=== PATIENT | male | born 1935 | race Caucasian/White ===

== ENCOUNTER 2016-11-10 10:58 | Inpatient (IN) | payer MEDICARE ==
[~2016-11-10] VITALS: Ht 188 cm; Wt 92.0 kg
[2016-11-10] MEDS ORDERED: ACETAMINOPH W/CODEINE #3 TAB UD PO ONE (11:30)
[2016-11-10] MEDS ORDERED: ASPI81CH PO (11:35)
[2016-11-10] MEDS ORDERED: PENT500C PO (11:35)
[2016-11-10] MEDS ORDERED: ATEN50TA2 PO (11:35)
--- NOTE | 2016-11-10 12:44 | REP ---
PELVIS AND RIGHT HIP: AP view of the pelvis and two views of the right hip are performed. There is a fracture of the right femoral neck. No other acute fracture or dislocation is seen. There are mild degenerative changes at both hip joints. There are degenerative changes of the visualized lower lumbar spine. IMPRESSION: Right femoral neck fracture. Signed by Rock Diez MD 11/10/2016 03:30 P
[2016-11-10] MEDS ORDERED: NITR3TA SL (13:07)
[2016-11-10] MEDS ORDERED: PRAV1TAB39 PO (13:07)
[2016-11-10] MEDS ORDERED: ASPI81TA7 PO (13:07)
--- NOTE | 2016-11-10 13:46 | REP ---
CT RIGHT HIP: CT right hip performed in the axial plane with sagittal and coronal reconstruction images. There is a mildly displaced fracture of the right femoral neck. There is posterior displacement at the fracture site. At the margins of the fracture, there is somewhat irregular lucency suggesting a possible underlying bone lesion and pathologic fracture. The fracture is somewhat comminuted with multiple small fragments at the fracture site. There is no dislocation. No other fracture is seen of the visualized osseous structures. There is a moderate amount of joint fluid present at the hip. IMPRESSION: Mildly displaced comminuted fracture of the right femoral neck. There is a possible underlying bone lesion at the fracture site and this may represent a pathologic fracture. Signed by Rock Diez MD 11/10/2016 03:31 P
[2016-11-10] MEDS ORDERED: MORPHINE 2 MG/ML 1ML SYRINGE IV ONE (14:15)
[2016-11-10] MEDS: NS 1,000 ML IV SCH ×3 (14:15→21:00)
[2016-11-10] MEDS ORDERED: ceFAZolin SOD 1 GM in D5W MINI-BAG PLUS 50 ML IV ONE (14:45)
--- NOTE | 2016-11-10 15:14 | REP ---
Clinical: Rule out metastatic disease. Technique: AP and cross-table lateral views the right femur. Findings: An acute femoral neck fracture is identified. Osteopenia and arthritic degenerative changes are noted involving the hip and ankle joints. No obvious neoplastic or pathologic metastatic lesion is identified. Impression: Acute femoral neck fracture. Osteopenia and arthritic degenerative changes. No obvious metastatic or neoplastic lesion identified. Signed by Harjinder Caruso MD 11/10/2016 03:06 P
--- NOTE | 2016-11-10 15:58 | CR ---
DATE OF CONSULTATION: 11/10/2016 CHIEF COMPLAINT: Right hip fracture. HISTORY: This is an 81-year-old gentleman who ambulates with a cane. Lives with his , accompanied by two daughters, who fell today [place] the post office, injuring his right hip. He said he has had some issues with that hip in the past with some trochanteric bursitis and I believe a couple years ago went through some physical therapy, and that really seemed to help a great deal. Really no recent troubles with hip pain or groin pain. He believes that the impact is what caused this hip fracture. I was asked to evaluate him for this femoral neck fracture. It is more of a basilar neck fracture. CT scan was obtained to better define the anatomy of the fracture and actually shows some possible cystic change in the femoral neck, possibly indicating a pathologic fracture. PAST MEDICAL HISTORY: Notable for: 1. Cardiac disease. 2. History of heart attack. 3. History of appendicitis and cholecystitis. PAST SURGICAL HISTORY: Includes: 1. Cardiac stents. 2. Appendectomy. 3. Cholecystectomy. 4. Cardiac stents. 5. Vasectomy. MEDICATIONS: Include Pentasa, atenolol, aspirin pravastatin, nitroglycerin, which he apparently does not use very frequently, if at all. REVIEW OF SYSTEMS: Denies any respiratory or gastrointestinal (GI) disorders, although possible history of colitis, which is unclear. Denies urinary disorders. HEENT: Denies endocrine disorders. Musculoskeletal: As noted above. Denies psychiatric issues. Denies any current chest pain or shortness of breath. ALLERGIES: No known drug allergies. PHYSICAL EXAMINATION: He is alert and oriented. No acute distress. HEENT: Extraocular muscles intact. Pharynx benign. He has a regular rate and rhythm to his pulse. Nonlabored breathing. He has a benign abdomen: Soft, nontender, nondistended. He has no irritability or tenderness about the upper extremities. His left lower extremity is non-irritable to range of motion. The right hip he keeps flexed and externally rotated to some degree, but he can move his toes well. He reports intact sensation distally. Pulses were difficult to palpate, but he has obvious good perfusion of the foot. Any subtle range of motion of his right hip is quite uncomfortable for him. He does not seem to be tender around his pelvis. RADIOGRAPHS REVIEWED: They demonstrate what appears to be a basilar neck fracture on the right hip. I do not see any clear evidence of pathologic lesion. He does have some degenerative disk disease. There appears to be some mild displacement of his right femoral neck. Otherwise, his pelvis shows no clear evidence of fracture. CT scan was reviewed of his right hip, and this shows evidence of a mildly displaced femoral neck fracture at the base of the neck that shows some evidence of a lytic lesion in the femoral neck area. This could represent a pathologic-type fracture. Also did full femur x-rays to look for any other pathologic lesions or fractures, and these do not show any clear evidence of metastatic or lytic lesions. IMPRESSION: This is an 81-year-old gentleman with some medical issues, not currently on any blood thinners other than aspirin, who had a mechanical fall, injuring his right hip. He was not having immediate problems with his hip prior to this fall. Denies any history of cancers. I think we need to rule out to any sort of metastatic process that could involve his right hip and certainly would recommend sending the bone for pathologic analysis. RECOMMENDATIONS: 1. Bedrest. 2. Labs were ordered. 3. Would recommend nothing by mouth past midnight, which I have ordered. 4. Would suggest a whole-body bone scan to look for any lytic or destructive lesions that could be elsewhere, which possibly would impact our treatment. 5. Will need to send bone off to pathology for analysis. 6. Would recommend hemiarthroplasty. I think this would be the most appropriate treatment for this, given that there may be some bone loss in the femoral neck due to a lytic process. It does not really appear to be an aggressive lesion; however, a metastatic process would be fairly high on the list. I feel the likelihood of this being a primary bone tumor is very low. 7. Would plan on proceeding with a right hip hemiarthroplasty when he is medically optimized and once we have further workup done, including the bone scan and the necessary workup per medical service. The patient and family understand the nature of procedure, the risks of bleeding, infection, damage to nerves, vessels, persistent pain, wear, loosening, dislocation, blood clots, leg length inequality, medical problems, , among others. They understand this is a significant injury for somebody of this age and can be often quite difficult to recover from. I would anticipate putting him on the schedule for tomorrow, assuming we have all of the workup and medical clearance done by then but will certainly appreciate any further input from the hospitalist service.
[2016-11-10 16:15] VITALS: BP 188/82
[2016-11-10] MEDS ORDERED: MORPHINE 2 MG/ML 1ML SYRINGE IV PRN ×2 (16:15→16:30)
[2016-11-10] MEDS ORDERED: PERCOCET 5MG/325MG TAB PO PRN ×2 (16:15→16:30)
[2016-11-10] MEDS ORDERED: ONDANSETRON 4MG/2ML VIAL (J2405) IV PRN ×2 (16:15→16:30)
[2016-11-10] MEDS ORDERED: ACETAMINOPHEN TAB 650MG DOSE (2X325MG) PO PRN ×2 (16:15→16:30)
[2016-11-10] MEDS ORDERED: HEPARIN SOD (PORCINE) 5000 UNITS/ML VIAL SC SCH ×2 (16:15→22:00)
--- NOTE | 2016-11-10 16:29 | REP ---
Clinical: Preoperative assessment. Findings: Tortuous thoracic aorta is suggested. Cardiac silhouette is upper limits of normal. Lung case demonstrate chronic interstitial changes without focal consolidation, effusion, or pneumothorax. Skeletal structures demonstrate osteopenia and degenerative changes. Impression: Chronic-appearing changes. No acute cardiopulmonary process. Signed by Harjinder Caruso MD 11/10/2016 04:20 P
[2016-11-10 17:02] LABS: BASO % 0.1 % (0.0-1.0); EOS % 0.1 % (0.0-3.0); LARGE UNSTAINED CELL # 0.1 K/mm3 (0.0-0.4); LARGE UNSTAINED CELL % 0.6 % (0.0-4.0); LYMPH # 0.8 K/mm3 (1.5-4.5); LYMPH % 6.6 % (24.0-44.0); MEAN CORPUSCULAR HEMOGLOBIN 29.8 pg (27.0-33.0); MEAN CORPUSCULAR HGB CONC 33.8 g/dl (32.0-36.5); MEAN CORPUSCULAR VOLUME 88.3 fl (80.0-96.0); MONO # 0.5 K/mm3 (0.0-0.8); MONO % 4.3 % (0.0-5.0); NEUTROPHILS # 10.6 K/mm3 (1.8-7.7); NEUTROPHILS % 88.3 % (36.0-66.0); PLATELET COUNT, AUTOMATED 201 k/mm3 (150-450); RED CELL DISTRIBUTION WIDTH 13.1 % (11.5-14.5)
[2016-11-10 17:13] LABS: INR 1.07
[2016-11-10 17:20] LABS: ALBUMIN 3.2 GM/DL (3.2-5.2); ALBUMIN/GLOBULIN RATIO 0.84 (1.00-1.93); ALKALINE PHOSPHATASE 98 U/L (45-117); ALT/SGPT 14 U/L (12-78); ANION GAP 9 MEQ/L (8-16); AST/SGOT 16 U/L (15-37); BILIRUBIN,TOTAL 0.6 MG/DL (0.2-1.0); BLOOD UREA NITROGEN 16 MG/DL (7-18); CALCIUM LEVEL 8.6 MG/DL (8.8-10.2); CARBON DIOXIDE LEVEL 26 MEQ/L (21-32); CHLORIDE LEVEL 103 MEQ/L (98-107); CREATININE FOR GFR 0.87 MG/DL (0.70-1.30); GLOMERULAR FILTRATION RATE > 60.0 (>35); GLUCOSE, FASTING 134 MG/DL (83-110); MAGNESIUM LEVEL 1.7 MG/DL (1.8-2.4); POTASSIUM SERUM 4.4 MEQ/L (3.5-5.1); SODIUM LEVEL 138 MEQ/L (136-145); THYROXINE (T4) 11.5 UG/DL (4.5-12.0)
[2016-11-10 17:26] LABS: T UPTAKE 33 % (33-40)
[2016-11-10] MEDS: MESALAMINE 250 MG CR CAP PO SCH ×2 (18:20→20:58)
[2016-11-10] MEDS: PRAVASTATIN 20 MG TAB PO SCH (20:58)
[2016-11-10] MEDS: SENOKOT S TAB PO SCH (20:59)
--- NOTE | 2016-11-10 20:59 | HPE ---
DATE OF ADMISSION: 11/10/2016 LAND USE PLANNER: Dr. Calvin PRIMARY CARE PROVIDER: SELIN Nunez ORTHOPEDIC SURGEON: Dr. Mccormick CHIEF COMPLAINT: Fall with right femoral neck fracture. HISTORY OF PRESENT ILLNESS: This is an 81-year-old male with underlying medical history of coronary arterial disease with stents five years ago, hypertension, ulcerative colitis, following with Dr. Carrillo. As per patient, he was in his normal state of health today, going to the post office and carrying a big box down a sloping slope and subsequently reported his right hip giving out and fell, unable to get up, was brought to the hospital. Found to have a right femoral neck fracture. The patient denies any head trauma or any loss of consciousness. At baseline is in good health. Does followup with orthopedic surgeon with right hip bursitis. The patient denies any chest pain, pressure, discomfort. Denies any shortness of breath. Does not use oxygen at home. Denies history of sleep apnea. Able to walk half of a mile without any problems at baseline. ALLERGIES: No known drug allergies. PAST MEDICAL HISTORY: 1. Coronary arterial disease. 2. Hypertension. 3. Ulcerative colitis. PAST SURGICAL HISTORY: 1. Cardiac stents. 2. Appendectomy. 3. Cholecystectomy. FAMILY HISTORY: Noncontributory. SOCIAL HISTORY: Lives at home with his . Occasionally drinks alcoholic beverages. No smoking. No illicit drug use. REVIEW OF SYSTEMS: 11-point review of systems is negative except for those mentioned in history of present illness. HOME MEDICATIONS: - aspirin 81 mg by mouth daily - atenolol 50 mg by mouth daily - methylamine 1000 mg by mouth three times a day - nitroglycerin 0.3 mg sublingually as needed - pravastatin 20 mg by mouth daily VITAL SIGNS: Temperature 98.7, pulse 74, respirations 18, blood pressure 180/82, pulse oximetry 94% on room air. GENERAL: The patient is alert and oriented times three. No acute distress. HEENT: Normocephalic, atraumatic. PULMONARY: Bilaterally clear to auscultation. CARDIAC: Regular rate and rhythm. ABDOMEN: Soft, nontender, nondistended. EXTREMITIES: Right lower extremity externally rotated and shortened. No edema in bilateral lower extremities. LABORATORY DATA: EKG with sinus rhythm with no ST segment changes. WBC 12, hemoglobin and hematocrit 13.7/40.7, platelets 201. Chemistry: Sodium 138, potassium 4.4, chloride 103, bicarbonate 26, BUN 16, creatinine 0.87. Cardiac enzymes are negative times one. ASSESSMENT AND PLAN: This is an 81-year-old male patient with underlying medical history of coronary arterial disease, hypertension, ulcerative colitis, admitted with right femoral neck fracture, status post low impact fall. 1. Status post low impact fall with right femoral neck fracture. Orthopedics, Dr. Mccormick, has been consulted. CT scan and radiological image appreciated. We will get nuclear medicine bone scan to rule out lytic lesions and pathological fracture and followup PTH, calcium. Perioperative management as per orthopedics. 2. Deep vein thrombosis (DVT) prophylaxis. Heparin subcutaneous. Prior to procedure, hold heparin subcutaneous after midnight. Nothing by mouth after midnight for surgery. Patient baseline METs greater than 4. Currently optimized for surgery. Continue beta sumi. Dr. Calvin has been informed. The patient is at intermediate risk for intermediate risk procedure. 3. Coronary arterial disease. Holding aspirin given the patient just had a fall with right femoral neck fracture and likely will be placed on Coumadin for deep vein thrombosis (DVT) prophylaxis after surgery. Withholding aspirin for now. Continue beta blockers. Bowel regimen as prescribed. EKG is appreciated. Cardiac enzymes appreciated. 4. Leukocytosis. No known source of infection, likely reactive . Followup cultures. UA and urine cultures. 5. Hypertension. Continue blood pressure medications. The patient's elevated blood pressure is likely secondary to pain. We will adjust blood pressure medication as needed. 6. Dyslipidemia. Continue statin. 7. Ulcerative colitis. Continue home medications. 8. Deep vein thrombosis (DVT) prophylaxis. As per orthopedics. The patient currently on heparin subcutaneously. DISPOSITION: Pending nuclear medicine bone scan. Likely going to the operating room tomorrow.
[2016-11-10] MEDS ORDERED: SENOKOT S TAB PO SCH (21:00)
[2016-11-10] MEDS ORDERED: MESALAMINE 250 MG CR CAP PO SCH (21:00)
[2016-11-10 22:00] VITALS: BP 151/77
[2016-11-11] VITALS (8 sets, daily range): BP systolic 130–181; BP diastolic 62–86
[2016-11-11] MEDS: NS 1,000 ML IV SCH ×3 (04:25→16:55)
[2016-11-11] MEDS ORDERED: ceFAZolin SOD 1 GM in D5W MINI-BAG PLUS 50 ML IV ONE (06:00)
--- NOTE | 2016-11-11 07:19 | ECGEPIP ---
Stationary ECG Study [facility] - ED Test Date: 2016-11-10 Pat Name: GLORIA ZARAGOZA Department: Room: [place] [address] Gender: M Wares Sorter: luciana : 1935 Requested By: JULIA Johnston PA-C Order Number: [id number] Reading MD: Josette Vincent Measurements Intervals [place] Rate: 65 P: 21 NC: 171 QRS: 14 QRSD: 85 T: 50 QT: 429 QTc: 447 Interpretive Statements SINUS RHYTHM NO PRIOR FOR COMPARISON Electronically Signed On 11-11-2016 7:19:01 EDT by Josette Vincent
[2016-11-11 07:49] LABS: MEAN CORPUSCULAR HEMOGLOBIN 29.4 pg (27.0-33.0); MEAN CORPUSCULAR HGB CONC 33.7 g/dl (32.0-36.5); MEAN CORPUSCULAR VOLUME 87.4 fl (80.0-96.0); RED CELL DISTRIBUTION WIDTH 13.1 % (11.5-14.5); WHITE BLOOD COUNT 11.4 K/mm3 (4.0-10.0)
[2016-11-11 07:55] LABS: INR 1.14
[2016-11-11 08:12] LABS: ANION GAP 10 MEQ/L (8-16); BLOOD UREA NITROGEN 11 MG/DL (7-18); CALCIUM LEVEL 8.8 MG/DL (8.8-10.2); CARBON DIOXIDE LEVEL 25 MEQ/L (21-32); CHLORIDE LEVEL 102 MEQ/L (98-107); CREATININE FOR GFR 0.68 MG/DL (0.70-1.30); GLOMERULAR FILTRATION RATE > 60.0 (>35); GLUCOSE, FASTING 129 MG/DL (83-110); MAGNESIUM LEVEL 1.5 MG/DL (1.8-2.4); POTASSIUM SERUM 3.6 MEQ/L (3.5-5.1); SODIUM LEVEL 137 MEQ/L (136-145)
[2016-11-11] MEDS ORDERED: GASTROGRAFIN SOLUTION 30ML PO ONE (08:15)
[2016-11-11] MEDS: MESALAMINE 250 MG CR CAP PO SCH ×3 (08:36→21:15)
[2016-11-11] MEDS: SENOKOT S TAB PO SCH ×2 (08:36→21:14)
[2016-11-11] MEDS: ATENOLOL 50 MG TAB PO SCH (08:36)
[2016-11-11] MEDS ORDERED: GASTROGRAFIN SOLUTION 30ML (Q9963) PO ONE (08:45)
[2016-11-11] MEDS ORDERED: ATENOLOL 50 MG TAB PO SCH (09:00)
[2016-11-11] MEDS ORDERED: PRAVASTATIN 20 MG TAB PO SCH (09:00)
[2016-11-11] MEDS ORDERED: MAG SULF 1GM/100ML (MAG RUN) 1 GM in APPROPRIATE DILUENT 1 EA IV ONE (09:00)
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
--- NOTE | 2016-11-11 12:26 | REP ---
WHOLE BODY BONE SCAN: Following the intravenous administration of 22 mCi of technetium-99m MDP, patient's whole body is imaged in the anterior and posterior projections with additional oblique images of the thoracic and pelvic regions performed as well as lateral views of the calvarium and lower extremities. At the site of the right femoral neck fracture there is focal photopenia, with mild adjacent increased uptake in the intertrochanteric region of the proximal right femur. Mild ill-defined increased uptake is seen in the mid shaft of the left femur. Arthritic uptake is seen in the knees. There is mild arthritic uptake in the spine. There is no compelling scintigraphic evidence of osseous metastases. Renal and bladder activity are seen. IMPRESSION: Focal photopenia at the site of a right femoral neck fracture. Underlying bone lesion not excluded. Mild increased uptake in the adjacent intertrochanteric region of the proximal right femur. Mild ill-defined increased uptake in the mid third of the shaft of the left femur is of uncertain significance. Recommend plain film correlation. Otherwise no compelling scintigraphic evidence of osseous metastases. Signed by Rock Diez MD 11/11/2016 12:45 P
[2016-11-11] MEDS ORDERED: ceFAZolin 1GM INJ (J0690) As Ordered ONE (17:23)
[2016-11-11] MEDS ORDERED: EPINEPHrine INJ 1 MG/ML 1ML VIAL/AMP As Ordered ONE (17:23)
[2016-11-11] MEDS ORDERED: LIDOCAINE 2% INJ 100 MG/5 ML SYRINGE As Ordered ONE (17:31)
[2016-11-11] MEDS ORDERED: MIDAZOLAM INJ 2 MG/2 ML VIAL (J2250) As Ordered ONE (17:31)
[2016-11-11] MEDS ORDERED: PROPOFOL 200 MG/20 ML VIAL As Ordered ONE (17:31)
[2016-11-11] MEDS ORDERED: fentaNYL 100 MCG/2 ML INJECTION (J3010) As Ordered ONE (17:31)
[2016-11-11] MEDS ORDERED: ePHEDrine SULFATE 25 MG/5 ML(5MG/ML) SYRINGE As Ordered ONE (18:28)
[2016-11-11] MEDS ORDERED: PHENYLephrine HCL 500 MCG/5 ML (100MCG/ML) SYRINGE (J2370) As Ordered ONE (18:28)
--- NOTE | 2016-11-11 19:54 | IPN ---
DATE: 11/11/2016 The patient is seen and examined again today and discussed this with his family. The bone scan was interpreted as having some increased uptake around his right hip which is not surprising given the fracture and they felt there was subtle finding possibly in his left femur, so I have ordered a left femur x-ray for tomorrow. He is asymptomatic on that side. I reviewed the bone scan and really do not appreciate much of significance on the left side. I did review plain x-rays from our office from a couple of years ago and those showed no evidence of any right hip abnormality or cystic lesion. I think the most reasonable thing to do is get his hip stable with the prosthesis that will cement in and this should make him more comfortable and x-ray his left femur tomorrow as well as his right hip postoperatively. The cystic lesion on the plain x-ray, to me, has no real aggressive-looking features and hopefully is just a benign bone cyst or something to that effect. Regardless, I think we are obligated to go ahead and stabilize this hip with the prosthesis. I do not see any other reasonable alternatives. Trying to fix it with internal fixation, I think would be at a very high risk of nonunion given his bone quality, his displacement of the fracture and this possible cystic finding. The family agrees with this plan.
[2016-11-11] MEDS ORDERED: WARFARIN SOD 5 MG TAB PO SCH (20:00)
[2016-11-11] MEDS ORDERED: PERCOCET 5MG/325MG TAB PO PRN (20:00)
[2016-11-11] MEDS ORDERED: MORPHINE 2 MG/ML 1ML SYRINGE IV PRN (20:00)
[2016-11-11] MEDS ORDERED: fentaNYL 100 MCG/2 ML INJECTION (J3010) IV PRN (20:00)
[2016-11-11] MEDS ORDERED: MORPHINE 4 MG/ML 1ML SYRINGE IV PRN (20:00)
[2016-11-11] MEDS ORDERED: ACETAMINOPHEN TAB 650MG DOSE (2X325MG) PO PRN (20:00)
[2016-11-11] MEDS ORDERED: ONDANSETRON 4MG/2ML VIAL (J2405) IV PRN ×2 (20:00)
[2016-11-11] MEDS ORDERED: LR 1,000 ML IV SCH (20:00)
[2016-11-11] MEDS ORDERED: FLEET ENEMA PR PRN (20:00)
[2016-11-11] MEDS: PRAVASTATIN 20 MG TAB PO SCH (21:14)
--- NOTE | 2016-11-11 21:18 | RO ---
DATE OF PROCEDURE: 11/11/2016 PREOPERATIVE DIAGNOSIS: Right hip fracture, possible bone cyst, femoral neck fracture. POSTOPERATIVE DIAGNOSIS: Right hip fracture, possible bone cyst, femoral neck fracture. OPERATIVE PROCEDURE: Right hip hemiarthroplasty, cemented, using a size 53 ball, +5 neck and a size 4 cemented stem 12.5 cementralizer and a size 4 cement restricter. surgeon fascia. SURGEON: Gareth Mccormick MD TODDLER LEAD TEACHER: ANESTHESIA: Spinal. ESTIMATED BLOOD LOSS: 100 mL. COMPLICATIONS: None. INDICATIONS: This is an 81-year-old gentleman who fell yesterday, fracturing his right hip. CT scan was suggestive of a possible cyst or lesion in his femoral neck, but it was a mechanical fall. Bone scan was done today; did not show any obvious metastatic lesions. He wished to go ahead with surgical treatment. I felt that hemiarthroplasty would most appropriate as apposed to trying to fix this; particular because it was somewhat displaced and because there was a possible cystic structure in the neck. They understood the nature of this, the risks of bleeding, infection, damage to nerves, vessels, persistent pain, wear, loosening, dislocation, leg length inequality, blood clots, medical problems, among others and the fact that this could potentially be some sort of malignancy in the neck as a possibility. DESCRIPTION OF PROCEDURE: The patient taken to the operating room and placed in supine position after spinal anesthesia was induced. He was then turned to left lateral decubitus position. The right hip was prepped and draped in the usual sterile fashion. Time-out was performed. I created a longitudinal incision over the lateral aspect of the hip and sharp dissection was carried down to subcutaneous tissue. I incised the fascia harman and then divided the anterior 40% of the abductor off. The exposure was somewhat difficult due to his tissue planes, but was able to get the femoral head exposed and the neck exposed; externally rotating this, putting the leg in the bag and then using a canal initiating reamer followed by the canal finding reamer and the lateralizing reamer to create the canal. The neck cut was then made at just above the lesser trochanter. The bone was sent off for surgical pathology. I did remove the head and neck and sized it to be a 53. The broaches were then used and I was careful to broach, taking care not to fracture the femur and was able to get up to a size 4 comfortably and I did the calcar planing, then did a trial reduction with the -3 and a 1 and a +5 and I felt initially that the -3 was going to be appropriate and reduced the hip, felt it to be reasonably stable, good position, etc.. I then prepared the canal, I irrigated, brushed, put the cement restricter down. Epinephrine soaked vaginal pack was placed, dry sponges, followed by the cement, which was prepared by the corporate administrative assistant at the back table. I retrograde filled the canal once the canal was dry, placed the size 4 cemented Lucas stem and held those in place while the cement hardened. Excess bone cement was removed. I then placed the actual -3 x 53 ball on and reduced the hip and at this point it felt like it was a little bit unstable. I felt like there is a little too much shuck and a little instability in external rotation and full extension, so actually removed the head and the taper and trialed a size 1, size 5. [place] like the +5 was actually the better choice at this point and I may have gotten the stem down a little bit further than I had the broach. So I dried the taper, impacted on the +5 and the 53 ball; reduced the hip and put the hip through range of motion. Excellent stability. Minimal shuck was noted. I had irrigated multiple times prior to this. Again irrigated. Sponge count, lap count was correct. I then repaired the minimus with #1 Vicryl suture, the abductor with #1 Vicryl suture through the bone, fascia harman with interrupted #1 Vicryl suture in a running Stratafix suture. Irrigated, closed the subcu with #2-0 Vicryl, skin with kody. Sterile dressing was applied. He was taken to recovery in stable condition. There were no known complications. The plan will be routine postop.
[2016-11-11] MEDS: LR 1,000 ML IV SCH (21:28)
[2016-11-12] VITALS: BP 131/77
[2016-11-12 00:11] LABS: MEAN CORPUSCULAR HGB CONC 34.8 g/dl (32.0-36.5); MEAN CORPUSCULAR VOLUME 86.3 fl (80.0-96.0); RED CELL DISTRIBUTION WIDTH 13.3 % (11.5-14.5); WHITE BLOOD COUNT 12.6 K/mm3 (4.0-10.0)
[2016-11-12 07:46] LABS: MEAN CORPUSCULAR HEMOGLOBIN 29.4 pg (27.0-33.0); MEAN CORPUSCULAR HGB CONC 33.6 g/dl (32.0-36.5); MEAN CORPUSCULAR VOLUME 87.5 fl (80.0-96.0); RED CELL DISTRIBUTION WIDTH 13.3 % (11.5-14.5); WHITE BLOOD COUNT 13.6 K/mm3 (4.0-10.0)
[2016-11-12 08:06] LABS: INR 1.34
[2016-11-12 08:07] LABS: ANION GAP 11 MEQ/L (8-16); BLOOD UREA NITROGEN 12 MG/DL (7-18); CALCIUM LEVEL 8.2 MG/DL (8.8-10.2); CARBON DIOXIDE LEVEL 25 MEQ/L (21-32); CHLORIDE LEVEL 102 MEQ/L (98-107); CREATININE FOR GFR 0.91 MG/DL (0.70-1.30); GLOMERULAR FILTRATION RATE > 60.0 (>35); GLUCOSE, FASTING 106 MG/DL (83-110); MAGNESIUM LEVEL 1.7 MG/DL (1.8-2.4); POTASSIUM SERUM 3.2 MEQ/L (3.5-5.1); SODIUM LEVEL 138 MEQ/L (136-145)
[2016-11-12] MEDS ORDERED: POTASSIUM CHLORIDE 10 MEQ SR TABLET PO ONE (09:00)
[2016-11-12] MEDS: MOM 30ML SUSPENSION UDC PO SCH (09:00)
[2016-11-12] MEDS: SENOKOT S TAB PO SCH ×2 (09:00→21:10)
[2016-11-12] MEDS: MIRALAX *UNIT DOSE* 17GM PACKET PO SCH (09:00)
[2016-11-12] MEDS ORDERED: MAG SULF 1GM/100ML (MAG RUN) 1 GM in APPROPRIATE DILUENT 1 EA IV ONE (09:00)
--- NOTE | 2016-11-12 09:08 | REP ---
Clinical: Osseous lesion with recently positive bone scan. Technique: AP and frog lateral views of the left femur. Findings: Diffuse osteopenia and moderate degenerative changes at the hip joint along with advanced tricompartmental degenerative changes at the knee joint are appreciated. No acute fracture or dislocation. Correlation is made with a bone scan dated 11/11/2016 and the area of increased uptake in the mid shaft of the left femur does not correspond to a focal lesion. Underlying stress injury should be correlated with physical examination. Impression: 1. Diffuse osteopenia and degenerative changes at the hip and knee joint. 2. No compelling abnormality correlating with the increased uptake on bone scan. This area may represent an occult stress injury and should be correlated with physical and clinical correlation. Signed by Harjinder Caruso MD 11/12/2016 09:01 A
--- NOTE | 2016-11-12 09:10 | REP ---
Clinical: Status post arthroplasty. Technique: AP and cross-table lateral views right hip . Findings: The patient is status post right hip replacement with normal positioning and appearance to the femoral and acetabular components. Overlying postsurgical changes appreciated. Impression: Satisfactory right hip replacement radiographs. Signed by Harjinder Caruso MD 11/12/2016 09:01 A
[2016-11-12] MEDS: LR 1,000 ML IV SCH (09:20)
[2016-11-12] MEDS: MESALAMINE 250 MG CR CAP PO SCH ×3 (09:28→21:10)
[2016-11-12] MEDS: ATENOLOL 50 MG TAB PO SCH (09:28)
[2016-11-12 10:00] VITALS: BP 106/52
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
[2016-11-12 12:00] VITALS: BP 115/53
[2016-11-12] MEDS ORDERED: WARFARIN SOD 5 MG TAB PO ONE (17:00)
[2016-11-12 20:23] LABS: POTASSIUM SERUM 4.3 MEQ/L (3.5-5.1)
[2016-11-12] MEDS: PRAVASTATIN 20 MG TAB PO SCH (21:10)
[2016-11-12 22:00] VITALS: BP 124/63
[2016-11-13 06:00] VITALS: BP 137/71
[2016-11-13 07:04] LABS: MEAN CORPUSCULAR HEMOGLOBIN 29.2 pg (27.0-33.0); MEAN CORPUSCULAR HGB CONC 33.3 g/dl (32.0-36.5); MEAN CORPUSCULAR VOLUME 87.6 fl (80.0-96.0); RED CELL DISTRIBUTION WIDTH 13.3 % (11.5-14.5); WHITE BLOOD COUNT 13.1 K/mm3 (4.0-10.0)
[2016-11-13 07:08] LABS: INR 1.57
[2016-11-13 07:17] LABS: ANION GAP 8 MEQ/L (8-16); BLOOD UREA NITROGEN 19 MG/DL (7-18); CALCIUM LEVEL 8.2 MG/DL (8.8-10.2); CARBON DIOXIDE LEVEL 27 MEQ/L (21-32); CHLORIDE LEVEL 103 MEQ/L (98-107); GLOMERULAR FILTRATION RATE > 60.0 (>35); GLUCOSE, FASTING 109 MG/DL (83-110); MAGNESIUM LEVEL 1.9 MG/DL (1.8-2.4); POTASSIUM SERUM 4.1 MEQ/L (3.5-5.1); SODIUM LEVEL 138 MEQ/L (136-145)
[2016-11-13 08:22] LABS: CARCINOEMBRYONIC ANTIGEN 0.7 NG/ML (<2.5)
[2016-11-13] MEDS: MIRALAX *UNIT DOSE* 17GM PACKET PO SCH (08:26)
[2016-11-13] MEDS: MOM 30ML SUSPENSION UDC PO SCH (08:26)
[2016-11-13 08:27] VITALS: BP 137/71
[2016-11-13] MEDS: SENOKOT S TAB PO SCH (08:27)
[2016-11-13] MEDS: MESALAMINE 250 MG CR CAP PO SCH (08:27)
[2016-11-13] MEDS: ATENOLOL 50 MG TAB PO SCH (08:27)
[2016-11-13] MEDS ORDERED: PERCOCET PO (11:52)
[2016-11-13] MEDS ORDERED: FLEEENE4 PR (11:52)
[2016-11-13] MEDS ORDERED: PEG1POW PO (11:52)
[2016-11-13] MEDS ORDERED: MILKSUS PO (11:52)
[2016-11-13] MEDS ORDERED: SENN1TAB2 PO (11:52)
[2016-11-13] MEDS ORDERED: PRIL20CA9 PO (11:56)
[2016-11-13] MEDS ORDERED: EC-881TA PO (11:56)
[2016-11-13] MEDS ORDERED: WARFARIN SOD 5 MG TAB PO ONE (17:00)
--- NOTE | 2016-11-13 17:42 | DSES ---
DATE OF ADMISSION: 11/10/2016 DATE OF DISCHARGE: 11/13/2016 CONSULTANTS: Dr. Gareth Mccormick, orthopedic surgery. PROCEDURES DURING THIS ADMISSION: On 11/11/2016, right hip hemiarthroplasty. DISCHARGE DIAGNOSES: 1. Mechanical fall. 2. Right hip comminuted fracture. 3. Atrial fibrillation, on chronic Coumadin. 4. Hypercholesterolemia. 5. History of coronary artery disease, multiple stents. 6. History of ulcerative colitis. 7. Acute delirium. 8. Electrolyte abnormalities with low potassium and magnesium. DISCHARGE MEDICATIONS: - Coumadin, managed per orthopedic surgery - milk of magnesia 30 mL daily - Percocet one tablet every 4 as needed for pain - MiraLax one packet daily - Senokot one tablet twice a day - Fleet enema as needed daily - atenolol 50 mg daily - mesalamine 1 gram three times a day - nitroglycerine 0.3 as needed for chest pain - pravastatin 20 mg daily - enteric-coated aspirin 80 daily - Prilosec 20 daily HOSPITAL COURSE: This is an 81-year-old male with history of atrial fibrillation, coronary artery disease (CAD), stents; he follows with Dr. Chávez. Ulcerative colitis; follows with Dr. Carrillo. Hypertension. He presented to the emergency room (ER) after a mechanical fall going down a slope, when the right hip gave out. Patient as unable to ambulate. Evaluation included an x-ray and CT, showing right femoral fracture. Patient underwent a bone scan to rule out pathologic lesion, which was negative. Patient was brought to the operating room and underwent right hemiarthroplasty. Postoperatively developed acute delirium, which resolved spontaneously. Pain was controlled with oral Percocet, and patient was transferred to physical medicine and rehabilitation (PM and R) in stable condition. He had persistent leukocytosis, which was thought to be reactive. Blood cultures were negative. Urine was not obtained. Chest x-ray was unremarkable for acute infiltrate or consolidation. Some chronic changes. LABORATORY DATA ON DISCHARGE: White count 13.1, hemoglobin 10, hematocrit 31, platelet count 169. Sodium 139, potassium 4.1, chloride 103, bicarbonate 27, BUN 19, creatinine 0.9, glucose of 109. Microbiology: Two sets of blood cultures on November 10: No growth. IMAGING STUDIES: Bone scan on November 11 shows right femoral neck fracture. No compelling evidence of osseous metastasis. CT of the extremities: Mildly displaced comminuted fracture of right femoral neck. Chest x-ray on November 10: Chronic-appearing changes. No acute cardiopulmonary process. Femoral x-ray on November 12: Diffuse osteopenia. Degenerative disease of the hip and knee joint. TIME SPENT ON DISCHARGE: 40 minutes.
== END 2016-11-13 13:05 | DRG 470 ==
LOC: EDBD 10:58 → M ED 11:42 → M ED INP 16:11 → M ED 16:19 → M MS5PR 16:20
PROVIDERS: ADMIT Hospitalist; ATTEND General Practice
PROC: 0SRR019 Replacement of Right Hip Joint, Femoral Surface with Metal Synthetic Substitute, Cemented, Open Approach (ICD-10-PCS; principal; 2016-11-11 16:00)
DX: M84.451A Pathological fracture, right femur, initial encounter for fracture (principal); K51.90 Ulcerative colitis, unspecified, without complications; C85.10 Unspecified B-cell lymphoma, unspecified site; R41.0 Disorientation, unspecified; I48.91 Unspecified atrial fibrillation; I25.10 Atherosclerotic heart disease of native coronary artery without angina pectoris; E78.00 Pure hypercholesterolemia, unspecified; E78.5 Hyperlipidemia, unspecified; D72.829 Elevated white blood cell count, unspecified; Z90.49 Acquired absence of other specified parts of digestive tract; Z79.01 Long term (current) use of anticoagulants; Z79.82 Long term (current) use of aspirin; Z79.899 Other long term (current) drug therapy; Z95.9 Presence of cardiac and vascular implant and graft, unspecified; I25.2 Old myocardial infarction; Z98.52 Vasectomy status

== ENCOUNTER 2016-11-13 09:34 | Inpatient (IN) | payer MEDICARE ==
[~2016-11-13] VITALS: Ht 190.5 cm; Wt 97.9 kg
[~2016-11-13 09:34] MED LIST: ASPI81CH PO; ASPI81TA7 PO; ATEN50TA2 PO; NITR3TA SL; PENT500C PO; PRAV1TAB39 PO
[2016-11-13] MEDS ORDERED: FLEEENE4 PR (11:52)
[2016-11-13] MEDS ORDERED: PEG1POW PO (11:52)
[2016-11-13] MEDS ORDERED: MILKSUS PO (11:52)
[2016-11-13] MEDS ORDERED: PERCOCET PO (11:52)
[2016-11-13] MEDS ORDERED: SENN1TAB2 PO (11:52)
[2016-11-13] MEDS ORDERED: EC-881TA PO (11:56)
[2016-11-13] MEDS ORDERED: PRIL20CA9 PO (11:56)
[2016-11-13] MEDS ORDERED: ACETAMINOPHEN TAB 650MG DOSE (2X325MG) PO PRN (13:00)
[2016-11-13] MEDS ORDERED: MIRALAX *UNIT DOSE* 17GM PACKET PO PRN (13:00)
[2016-11-13] MEDS ORDERED: PERCOCET 5MG/325MG TAB PO PRN (13:00)
[2016-11-13 13:15] VITALS: BP 137/67
--- NOTE | 2016-11-13 13:56 | HPEPDOC ---
Workshop Manager Note ADMISSION HISTORY AND PHYSICIAL DATE OF ADMISSION: 11/13/16 HISTORY OF PRESENT ILLNESS: Patient is an 81-year-old man with history of coronary artery disease and ulcerative colitis who [place] a [place]. He describes carrying a box down a slope in all then found himself on the floor with severe hip pain he was unable to get up and was brought to [facility] where he was found to have a right femoral neck fracture. After medical clearance, on 11/11/2016 he underwent a right hip hemiarthroplasty. Postoperative course was notable for acute delirium. Due to decline in the patients baseline functional status and need for continued medical care, recommendation was for acute rehabilitation. On 11/13/16 the patient was deemed stable for discharge to [facility] inpatient rehabilitation unit. PAST MEDICAL HISTORY: Hypertension Coronary arterial disease s/p [place] Ulcerative colitis. PAST SURGICAL HISTORY: Cardiac stents Appendectomy Cholecystectomy ALLERGIES: NKDA MEDICATIONS: Atenolol 50 mg by mouth daily Pravachol 20 mg by mouth daily at bedtime Coumadin dose daily Pentasa 1000 mg 3 times a day Protonix 40 mg daily Senokot-S 1 tab twice a day MiraLAX 1 packet daily Milk of magnesia 30 mL by mouth daily as needed Percocet 1 tab every 4 hours when necessary Acetaminophen 650 mg by mouth every 4 hours SOCIAL HISTORY: Patient lives with his in a two-story home, but only uses the first floor. There are about 3 steps to enter the house. He reports a history of smoking 1 pack a day for approximately 40 years and quit in 1991. He reports social alcohol use sliding and occasional whiskey. He denies any illicit drug use. Review of Systems: General: no chills, +fatigue, no weight changes. Eyes: no change of vision, + reading glasses. Ears, Nose & Throat: no sore throat, + decreased hearing, no nasal discharge. Cardiovascular: no chest pain, claudication, + occasional LL edema, no syncopal episodes that he recalls. Pul: no cough, SOB. GI: no abdominal pain, N/V, +3 loose stools this morning. Genitourinary: no difficulty urinating or dysuria. Musculoskeletal: no back/ neck, +right hip pain, no muscle pain. Neurological: no numbness, paresthesias, no tremors, progressive weakness, seizures, GARCIA. Hematological: No bleeding disorders. Skin: no rashes. Psychiatric: no depression, anxiety, behavioral issues. VITAL SIGNS: 97.8F, pulse 81, respiratory rate of 18, blood pressure 137/67, 96 % saturation on room air PHYSICAL EXAMINATION: GENERAL: Well nourished, well developed, sitting up in chair, no acute distress. HEENT: Normocephalic, atraumatic. No facial droop. PERRL, EOMI CARDIOVASCULAR: S1, S2, regular rate. Trace left lower limb edema, no calf tenderness bilaterally. Mild diffuse right lower limb swelling, no right lower limb or calf tenderness. LUNGS: Clear to auscultation bilaterally, no wheezing rhonchi or rales. ABDOMEN: Soft, nontender, nondistended. Positive normoactive bowel sounds throughout. MUSCULOSKELETAL: Manual muscle testin/5 left hip flexors, 5/5 remainder of the left lower limb in all major muscle groups. 5/5 bilateral upper limbs in all major muscle groups. 1/5 right hip flexors, 3/5 right knee extension flexion , 5/5 right dorsiflexion, plantarflexion. Sensation: Intact to soft touch bilateral upper and lower limbs. Deep tendon reflexes: Unable to elicit patellar biceps bilaterally. NEUROLOGICAL: Alert and oriented x person, place, year. Able to follow commands without difficulty. Answers all questions appropriately. SKIN: No skin breakdown. LABORATORY DATA: 11/13/16: WBC 13.1; hgb 10.5. INR 1.57 IMAGING: Hip XR 11/10/16: Right femoral neck fracture FUNCTIONAL STATUS, Premorbid: independent to modified independent with ambulation. Independent ADLs. Used to drive, but doesn't have a car anymore. ASSESSMENT AND PLAN: 1. Right femoral neck fracture status post hemiarthroplasty now with gait abnormality and dysfunctional ADLs: Patient is weight-bearing as tolerated. He ll undergo thorough physical and occupational therapy evaluations followed by daily to be. Rehabilitation nursing for bladder, bowel and medication management. 2. DVT prophylaxis: Patient is on Coumadin dose by Mary INIGUEZ of the orthopedic service. Well also provide SCD and EDWARD hose. 3. Anemia, acute blood loss: Will monitor hemoglobin with the workup/treatment as indicated. 4. Bowel: Given that the patient has had loose stools this morning and has a history of ulcerative colitis, will on discontinuing his milk of magnesia and Senokot-S. Will change to Colace 100 mg twice a day and provide MiraLAX on an as -needed basis. Continue Pentasa. 5. Pain: Well continue patient on current regimen of acetaminophen and Percocet on an as-needed basis. Adjustments as needed. 6. GI prophylaxis: Will provide PPI by daily. 7. Coronary artery disease: Will maintain patient on his beta sumi and Pravachol. He was on aspirin prior to admission, but this is been discontinued since he is now on Coumadin for DVT prophylaxis per orthopedic service. POST ADMISSION PHYSICIAN EVALUATION: On evaluation of the patient today there' ve been no significant medical issues or functional changes as compared to those noted in the preadmission screening document. This patient's inpatient rehabilitation remains necessary in light of the above conditions. The patient' s medical condition requires specialized care with physicians specially trained in physical medicine rehabilitation. The patient is capable motivated to participate in a minimum of 3 hours of therapy daily, 5 days minimum per week, and requires intensive inpatient rehabilitation to improve their functional status so that they can be safely to discharge back to their home. PROGNOSIS: good ESTIMATED LENGTH OF STAY: 10 days. / Vital Signs Vital Sign - Last 24 Hours 11/13/16 13:15 Temp 97.8 Pulse 81 Resp 18 B/P 137/67 Pulse Ox 96 O2 Delivery Room Air Home Medications Scheduled (Senna Plus 8.6-50 mg) 1 Tab Tab 1 TAB PO BID (EC-81 Aspirin) 81 Mg Tab 81 MG PO DAILY Atenolol (Atenolol) 50 Mg Tab 50 MG PO DAILY (Reported) Mesalamine (Pentasa) 500 Mg Cap 1,000 MG PO TID (Reported) Milk Of Magnesia (Milk of Magnesia) 1,200 Mg/15 Ml Natali 30 ML PO DAILY Omeprazole (Prilosec) 20 Mg Cap 20 MG PO DAILY Polyethylene Glycol (Peg 3350) 1 Pkt Pow 1 PKT PO DAILY Pravastatin Sodium (Pravachol) 20 Mg Tab 20 MG PO DAILY (Reported) PATIENT HAS NOT STARTED TAKING YET, NEW MEDICATION Scheduled PRN Nitroglycerin (Nitrostat) 0.3 Mg Subl 0.3 MG SL NITRO PRN PRN CHEST PAIN ( Reported) Oxycodone/Acetaminophen (Percocet 5MG/325MG Tablet) 1 Tab Tab 1 TAB PO Q4HP PRN PRN MILD PAIN (PS 1-4) Sodium Phosphate/Biphosphate (Fleet Enema 7-19 gm/118Ml) [address] DAILYPRN PRN PRN CONSTIPATION Allergies Coded Allergies: No Known Allergies (Unverified , 11/10/16) SHELLI COLIN MD Nov 13, 2016 13:56
[2016-11-13] MEDS ORDERED: WARFARIN SOD 5 MG TAB PO ONE (17:00)
[2016-11-13] MEDS: MESALAMINE 250 MG CR CAP PO SCH ×2 (18:11→20:34)
[2016-11-13 20:00] VITALS: BP 132/82
[2016-11-13] MEDS: PRAVASTATIN 20 MG TAB PO SCH (20:34)
[2016-11-13] MEDS: DOCUSATE SODIUM 100 MG CAP PO SCH (20:34)
[2016-11-14 06:00] VITALS: BP 122/60
[2016-11-14 06:44] LABS: INR 1.76
[2016-11-14 06:58] LABS: ANION GAP 8 MEQ/L (8-16); BLOOD UREA NITROGEN 18 MG/DL (7-18); CALCIUM LEVEL 7.8 MG/DL (8.8-10.2); CARBON DIOXIDE LEVEL 27 MEQ/L (21-32); CHLORIDE LEVEL 104 MEQ/L (98-107); CREATININE FOR GFR 0.67 MG/DL (0.70-1.30); GLOMERULAR FILTRATION RATE > 60.0 (>35); GLUCOSE, FASTING 99 MG/DL (83-110); POTASSIUM SERUM 3.8 MEQ/L (3.5-5.1); SODIUM LEVEL 139 MEQ/L (136-145)
[2016-11-14 07:28] LABS: BASO % 0.1 % (0.0-1.0); EOS # 0.3 K/mm3 (0.0-0.50); EOS % 2.1 % (0.0-3.0); LARGE UNSTAINED CELL # 0.2 K/mm3 (0.0-0.4); LARGE UNSTAINED CELL % 1.5 % (0.0-4.0); LYMPH # 2.2 K/mm3 (1.5-4.5); LYMPH % 16.2 % (24.0-44.0); MEAN CORPUSCULAR HEMOGLOBIN 29.8 pg (27.0-33.0); MEAN CORPUSCULAR HGB CONC 33.8 g/dl (32.0-36.5); MEAN CORPUSCULAR VOLUME 88.3 fl (80.0-96.0); MONO # 0.7 K/mm3 (0.0-0.8); MONO % 5.6 % (0.0-5.0); NEUTROPHILS # 9.3 K/mm3 (1.8-7.7); NEUTROPHILS % 74.5 % (36.0-66.0); PLATELET COUNT, AUTOMATED 227 k/mm3 (150-450); RED CELL DISTRIBUTION WIDTH 13.2 % (11.5-14.5); WHITE BLOOD COUNT 12.4 K/mm3 (4.0-10.0)
[2016-11-14] MEDS: DOCUSATE SODIUM 100 MG CAP PO SCH ×2 (09:27→20:52)
[2016-11-14] MEDS: MESALAMINE 250 MG CR CAP PO SCH ×3 (09:27→20:52)
[2016-11-14] MEDS: PANTOPRAZOLE 40MG TAB (PROTONIX) PO SCH (09:27)
[2016-11-14] MEDS: ATENOLOL 50 MG TAB PO SCH (09:28)
[2016-11-14 14:34] VITALS: BP 126/68
[2016-11-14] MEDS ORDERED: WARFARIN SOD 2.5 MG TAB PO ONE (17:00)
[2016-11-14 20:00] VITALS: BP 132/63
[2016-11-14] MEDS: PRAVASTATIN 20 MG TAB PO SCH (20:52)
[2016-11-15 06:00] VITALS: BP 126/64
[2016-11-15 06:29] LABS: INR 2.14
[2016-11-15] MEDS: PANTOPRAZOLE 40MG TAB (PROTONIX) PO SCH (09:54)
[2016-11-15] MEDS: MESALAMINE 250 MG CR CAP PO SCH ×3 (09:54→21:29)
[2016-11-15] MEDS: ATENOLOL 50 MG TAB PO SCH (09:55)
[2016-11-15] MEDS: DOCUSATE SODIUM 100 MG CAP PO SCH ×2 (09:56→21:29)
[2016-11-15 14:00] VITALS: BP 158/75
[2016-11-15 20:00] VITALS: BP 157/71
[2016-11-15] MEDS: PRAVASTATIN 20 MG TAB PO SCH (21:29)
[2016-11-16 06:00] VITALS: BP 155/79
[2016-11-16 06:39] LABS: BASO % 0.2 % (0.0-1.0); EOS # 0.3 K/mm3 (0.0-0.50); EOS % 3.7 % (0.0-3.0); LARGE UNSTAINED CELL # 0.2 K/mm3 (0.0-0.4); LARGE UNSTAINED CELL % 2.1 % (0.0-4.0); LYMPH # 1.3 K/mm3 (1.5-4.5); LYMPH % 19.1 % (24.0-44.0); MEAN CORPUSCULAR HEMOGLOBIN 28.5 pg (27.0-33.0); MEAN CORPUSCULAR HGB CONC 32.7 g/dl (32.0-36.5); MEAN CORPUSCULAR VOLUME 87.2 fl (80.0-96.0); MONO # 0.5 K/mm3 (0.0-0.8); MONO % 7.7 % (0.0-5.0); NEUTROPHILS # 4.7 K/mm3 (1.8-7.7); NEUTROPHILS % 67.2 % (36.0-66.0); PLATELET COUNT, AUTOMATED 232 k/mm3 (150-450)
[2016-11-16 06:46] LABS: INR 2.28
[2016-11-16 06:59] LABS: ANION GAP 8 MEQ/L (8-16); BLOOD UREA NITROGEN 17 MG/DL (7-18); CALCIUM LEVEL 7.7 MG/DL (8.8-10.2); CARBON DIOXIDE LEVEL 29 MEQ/L (21-32); CHLORIDE LEVEL 104 MEQ/L (98-107); CREATININE FOR GFR 0.61 MG/DL (0.70-1.30); GLOMERULAR FILTRATION RATE > 60.0 (>35); GLUCOSE, FASTING 102 MG/DL (83-110); POTASSIUM SERUM 4.3 MEQ/L (3.5-5.1); SODIUM LEVEL 141 MEQ/L (136-145)
[2016-11-16] MEDS: DOCUSATE SODIUM 100 MG CAP PO SCH ×2 (08:18→21:26)
[2016-11-16] MEDS: MESALAMINE 250 MG CR CAP PO SCH ×3 (08:18→21:25)
[2016-11-16] MEDS: PANTOPRAZOLE 40MG TAB (PROTONIX) PO SCH (08:18)
[2016-11-16] MEDS: ATENOLOL 50 MG TAB PO SCH (08:19)
[2016-11-16 14:00] VITALS: BP 159/65
[2016-11-16 21:00] VITALS: BP 120/57
[2016-11-16] MEDS: PRAVASTATIN 20 MG TAB PO SCH (21:26)
[2016-11-17 06:00] VITALS: BP 130/86
[2016-11-17 07:18] LABS: INR 2.05
[2016-11-17] MEDS: PANTOPRAZOLE 40MG TAB (PROTONIX) PO SCH (08:43)
[2016-11-17] MEDS: MESALAMINE 250 MG CR CAP PO SCH ×3 (08:43→20:36)
[2016-11-17] MEDS: ATENOLOL 50 MG TAB PO SCH (08:43)
[2016-11-17] MEDS: DOCUSATE SODIUM 100 MG CAP PO SCH ×2 (08:43→20:36)
[2016-11-17 14:00] VITALS: BP 154/72
--- NOTE | 2016-11-17 14:17 | IPNPDOC ---
Civil Structural Engineer Progress Note DATE OF SERVICE: DATE OF ADMISSION: Nov 13, 2016 at 13:15 INPATIENT REHABILITATION ADMISSION DAY: #[4] HISTORY OF PRESENT ILLNESS: Patient is an 81-year-old man with history of coronary artery disease and ulcerative colitis who [place]. He describes carrying a box down a slope in all then found himself on the floor with severe hip pain he was unable to get up and was brought to [facility] where he was found to have a right femoral neck fracture. After medical clearance, on 11/11/2016 he underwent a right hip hemiarthroplasty. Postoperative course was notable for acute delirium. Due to decline in the patients baseline functional status and need for continued medical care, recommendation was for acute rehabilitation. On 11/13/16 the patient was deemed stable for discharge to [facility] inpatient rehabilitation unit. PAST MEDICAL HISTORY: Hypertension Coronary arterial disease s/p [place] Ulcerative colitis. PAST SURGICAL HISTORY: Cardiac stents Appendectomy Cholecystectomy ALLERGIES: NKDA MEDICATIONS ON ADMISSION: Reviewed, see below. SUBJECTIVE: [Patient reports that his ambulation is increasing and he is having no pain or other problems. His main concern is getting strong enough to be able return home. Patient to prior hospital course was complicated by hemorrhage is off Coumadin and his INR is normalizing but still 2.05] PHYSICAL EXAMINATION: GENERAL: [Patient is alert and well oriented and in very mild musculoskeletal distress. Speech is clear, coherent, and appropriate; memory is good and mood is good.] HEENT: Normocephalic atraumatic. CARDIOVASCULAR: Auscultation shows a regular rate and rhythm with normal S1 and S2 no S3-S4 murmurs or rubs. 2 out of 4 bilaterally radial pulses. LUNGS: All case are clear to auscultation. ABDOMEN: Obese with normal bowel sounds in all quadrants and no abdominal tenderness. NEUROLOGICAL: As above. LABORATORY DATA: Reviewed, see below. IMAGING: None current. ASSESSMENT AND PLAN: 1. Right hip fracture with hemiarthroplasty: Patient is doing well with strengthening and endurance. Currently we are working on hip precautions and increasing ambulation and transfer skills. Patient should use posterior hip precautions. In light of his prior hemorrhage is now transitioning off of the Coumadin and is better served by progressive ambulation. Anticipate discharge on Wednesday. Urine culture Urine Culture showed no growth. 2. Hypertension: Blood pressure is doing fairly well on current regimen no changes planned. 3. Anemia: Still mild to moderate N gentleman appears stable. We'll look to recheck before discharge. INTERDISCIPLINARY CARE AND DISCHARGE PLANNIN. Rehabilitation of right hemiarthroplasty secondary to right hip fracture: As noted above and in team conference note from yesterday, we will go ahead and work towards Wednesday discharge to home with family. If patient is not progressing we will look at secondary options such as mcc. Vital Signs Vital Sign - Last 24 Hours 11/16/16 11/16/16 11/16/16 11/17/16 14:00 20:00 21:00 06:00 Temp 98.0 98.3 98.2 Pulse 81 73 71 Resp 18 18 18 B/P 159/65 120/57 130/86 Pulse Ox 97 97 96 O2 Delivery Room Air Room Air Room Air Room Air 11/17/16 08:43 Pulse 71 B/P 130/86 Laboratory Data Labs 24H Laboratory Tests 2 11/17/16 06:38: Prothromb Time International Ratio 2.05, Prothrombin Time 23.2H Microbiology Microbiology 11/14/16 Urine Culture - Final, Complete Allergies Allergies: Coded Allergies: No Known Allergies (Unverified , 11/10/16) Current Medications Current Medications Current Medications Acetaminophen (Tylenol Tab) 650 mg Q4HP PRN PO MILD PAIN (PS 1-4); Start at 13:00; Stop 12/13/16 at 12:59 Atenolol (Tenormin) 50 mg DAILY PO Last administered on 11/17/16 08:43; Start 11/14/16 at 09:00; Stop 12/14/16 at 08:59 Docusate Sodium (Colace) 100 mg BID PO Last administered on 11/17/16 08:43; Start 11/13/16 at 21:00; Stop 12/13/16 at 20:59 Mesalamine (Pentasa) 1,000 mg TID PO Last administered on 11/17/16 08:43; Start 11/13/16 at 16:00; Stop 12/13/16 at 15:59 Oxycodone/ Acetaminophen (Percocet 5mg/ 325mg Tablet) 1 tab Q4HP PRN PO MODERATE/SEVERE PAIN (PS 5-10); Start 11/13/16 at 13:00; Stop 11/20/16 at 12:59 Pantoprazole Sodium (Protonix) 40 mg DAILY PO Last administered on 11/17/16 08 :43; Start 11/14/16 at 09:00; Stop 12/14/16 at 08:59 Polyethylene Glycol (Miralax) 1 pkt DAILY PRN PO CONSTIPATION; Start 11/13/16 at 13:00; Stop 12/13/16 at 12:59 Pravastatin Sodium (Pravachol) 20 mg QHS PO Last administered on 11/16/16 21: 26; Start 11/13/16 at 21:00; Stop 12/13/16 at 20:59 ROZINA CAVAZOS MD Nov 17, 2016 14:17
[2016-11-17 15:20] LABS: MEAN CORPUSCULAR HEMOGLOBIN 29.3 pg (27.0-33.0); MEAN CORPUSCULAR HGB CONC 33.2 g/dl (32.0-36.5); MEAN CORPUSCULAR VOLUME 88.2 fl (80.0-96.0); RED CELL DISTRIBUTION WIDTH 13.2 % (11.5-14.5); WHITE BLOOD COUNT 9.2 K/mm3 (4.0-10.0)
[2016-11-17] MEDS ORDERED: WARFARIN SOD 2.5 MG TAB PO ONE (19:20)
[2016-11-17 20:00] VITALS: BP 120/62
[2016-11-17] MEDS: PRAVASTATIN 20 MG TAB PO SCH (20:36)
[2016-11-18 06:00] VITALS: BP 124/63
[2016-11-18] MEDS: DOCUSATE SODIUM 100 MG CAP PO SCH ×2 (08:59→21:26)
[2016-11-18] MEDS: MESALAMINE 250 MG CR CAP PO SCH ×3 (08:59→21:26)
[2016-11-18] MEDS: ATENOLOL 50 MG TAB PO SCH (08:59)
[2016-11-18] MEDS: PANTOPRAZOLE 40MG TAB (PROTONIX) PO SCH (08:59)
[2016-11-18 10:25] LABS: INR 1.7
--- NOTE | 2016-11-18 10:47 | IPNPDOC ---
Military Pay Clerk Progress Note DATE OF SERVICE: DATE OF ADMISSION: Nov 13, 2016 at 13:15 INPATIENT REHABILITATION ADMISSION DAY: #5 ALLERGIES: See Below SUBJECTIVE: 81-year-old white male status post right hip fracture and hemiarthroplasty posterior approach. Patient notes in general no pain but occasionally with hip movement notes a twinge of pain. He denies other problems and feels therapy is going well. VITAL SIGNS: See below. PHYSICAL EXAMINATION: GENERAL: Well-nourished well-developed elderly white male in mild musculoskeletal distress. HEENT: Normocephalic atraumatic. CARDIOVASCULAR: Auscultation shows a regular rate and rhythm with normal S1-S2 without S3-S4 murmurs or rubs. Throughout for bilateral radial pulses. LUNGS: Lungs are clear in all case auscultation. ABDOMEN: Mildly obese nontender with normal bowel sounds in all quadrants. NEUROLOGICAL: Patient is alert and well oriented in good spirits. Speech is clear coherent and appropriate. Patient with good motor control of bilateral upper and lower extremities, though some guarding of the right hip. ASSESSMENT AND PLAN: 1. Rehabilitation of right hemiarthroplasty of the hip: Patient overall doing well with physical occupational therapies and has expressed having good pain control. Patient progressing well in discharge is anticipated for November 20. 2. Postop anemia: Patient stable with good blood pressure and able to participate in therapy no changes at this time and care regimen. Vital Signs Vital Sign - Last 24 Hours 11/17/16 11/17/16 11/17/16 11/18/16 14:00 20:00 20:00 06:00 Temp 97.3 98.8 98.1 Pulse 78 77 75 Resp 18 18 18 B/P 154/72 120/62 124/63 Pulse Ox 97 96 96 O2 Delivery Room Air Room Air Room Air Room Air 11/18/16 11/18/16 08:59 09:00 Pulse 75 B/P 124/63 O2 Delivery Room Air Laboratory Data CBC/BMP Laboratory Tests 11/17/16 14:46 Red Blood Count 3.40 L, Mean Corpuscular Volume 88.2, Mean Corpuscular Hemoglobin 29.3, Mean Corpuscular Hemoglobin Concent 33.2, Red Cell Distribution Width 13.2 Labs 24H Laboratory Tests 2 11/18/16 09:30: Prothromb Time International Ratio 1.70, Prothrombin Time 20.1H Microbiology Microbiology 11/14/16 Urine Culture - Final, Complete Allergies Allergies: Coded Allergies: No Known Allergies (Unverified , 11/10/16) Current Medications Current Medications Current Medications Acetaminophen (Tylenol Tab) 650 mg Q4HP PRN PO MILD PAIN (PS 1-4); Start at 13:00; Stop 12/13/16 at 12:59 Atenolol (Tenormin) 50 mg DAILY PO Last administered on 11/18/16 08:59; Start 11/14/16 at 09:00; Stop 12/14/16 at 08:59 Docusate Sodium (Colace) 100 mg BID PO Last administered on 11/18/16 08:59; Start 11/13/16 at 21:00; Stop 12/13/16 at 20:59 Mesalamine (Pentasa) 1,000 mg TID PO Last administered on 11/18/16 08:59; Start 11/13/16 at 16:00; Stop 12/13/16 at 15:59 Oxycodone/ Acetaminophen (Percocet 5mg/ 325mg Tablet) 1 tab Q4HP PRN PO MODERATE/SEVERE PAIN (PS 5-10); Start 11/13/16 at 13:00; Stop 11/20/16 at 12:59 Pantoprazole Sodium (Protonix) 40 mg DAILY PO Last administered on 11/18/16 08 :59; Start 11/14/16 at 09:00; Stop 12/14/16 at 08:59 Polyethylene Glycol (Miralax) 1 pkt DAILY PRN PO CONSTIPATION; Start 11/13/16 at 13:00; Stop 12/13/16 at 12:59 Pravastatin Sodium (Pravachol) 20 mg QHS PO Last administered on 11/17/16 20: 36; Start 11/13/16 at 21:00; Stop 12/13/16 at 20:59 ROZINA CAVAZOS MD Nov 18, 2016 10:47
--- NOTE | 2016-11-18 13:43 | IPNPDOC ---
Subjective Date Seen The patient was seen on 11/18/16. Subjective Chief Complaint/HPI The patient is a 81-year-old male admitted with a reason for visit of Right Hip Fx. Events since last encounter Requested to review Pathology results. Pt with no new complaints. Eyes: Denies: Pain, Vision change ENT: Denies: Dysphagia, Ear Pain, Head Aches Pulmonary: Denies: Cough, Dyspnea Cardiovascular: Denies: Chest Pain, Lt Headedness, Orthopnea, Palpitations, Paroxysmal Noc. Dyspnea Gastrointestinal: Denies: Abdominal Pain, Constipation, Diarrhea, Nausea, Vomiting Genitourinary: Denies: Dysuria, Frequency, Incontinence, Retention Objective Physical Examination General Exam: Positive: Alert Eye Exam: Positive: PERRLA ENT Exam: Positive: Atraumatic Chest Exam: Positive: Clear to auscultation, Normal air movement Heart Exam: Positive: Normal S1, Normal S2, Rate Normal, Regular Rhythm, Negative: Murmurs, Rubs Abdomen Exam: Positive: Normal bowel sounds, Soft, Negative: Hepatospenomegaly, Tenderness Skin Exam: Positive: Nl turgor and temperature Assessment /Plan Problems (1) Fracture of femoral neck, right, closed Status: Acute Problem Text: * PT/OT as per Rehab * Coumadin as per Ortho. * Pathology Rt femur Possible B cell lymphoma- Clt Oncology and Cancer Navigator. (2) Afib Status: Chronic Problem Text: * Atenolol/Coumadin (3) HLD (hyperlipidemia) Status: Chronic Problem Text: * Pravachol (4) CAD (coronary artery disease) Status: Chronic Problem Text: * Atenolol (5) Ulcerative colitis Status: Chronic Problem Text: * Pentasa Plan/VTE VTE Prophylaxis Ordered?: Yes (Coumadin as per Orthopedics. ) Disposition as per ARU VS, I&O, [facility] Vital Signs/I&O Vital Signs Date Time Temp Pulse Resp B/P Pulse Ox O2 Delivery O2 Flow Rate FiO2 11/18/16 09:00 Room Air 11/18/16 08:59 75 124/63 11/18/16 06:00 98.1 18 96 I&O- Last 24 Hours up to 6 AM 11/18/16 06:00 Intake Total 1380 ml Output Total 1950 ml Balance -570 ml Laboratory Data 24H LABS Laboratory Tests 2 11/18/16 09:30: Prothromb Time International Ratio 1.70, Prothrombin Time 20.1H CBC/BMP Laboratory Tests 11/17/16 14:46 Red Blood Count 3.40 L, Mean Corpuscular Volume 88.2, Mean Corpuscular Hemoglobin 29.3, Mean Corpuscular Hemoglobin Concent 33.2, Red Cell Distribution Width 13.2 Microbiology Microbiology 11/14/16 Urine Culture - Final, Complete Shelbie Almanza Nov 18, 2016 13:43
[2016-11-18 14:00] VITALS: BP 137/62
[2016-11-18] MEDS ORDERED: GASTROGRAFIN SOLUTION 30ML PO ONE (15:15)
[2016-11-18] MEDS ORDERED: GASTROGRAFIN SOLUTION 30ML (Q9963) PO ONE (15:45)
[2016-11-18] MEDS ORDERED: ISOVUE-370 76% 100ML VIAL (Q9967) As Ordered ONE (16:12)
[2016-11-18] MEDS ORDERED: WARFARIN SOD 1 MG TAB PO ONE (17:00)
--- NOTE | 2016-11-18 20:14 | REP ---
Clinical: History of lymphoma. Technique: Axial contrast enhanced images from the lung bases to the pubic symphysis using oral 100 ml Isovue 370 intravenous contrast material with precontrast and delayed images of the abdomen as well as coronal and sagittal re-formations. Comparison: None. Findings: Lung bases demonstrate chronic changes. Visualized heart and pericardium demonstrate prior CABG and coronary stenting. Liver and spleen demonstrate parenchymal calcifications suggesting prior granulomas disease or changes related to prior therapy. No focal hepatic or splenic lesions are identified. Pancreas is normal. 11 mm left adrenal nodule and 2.3 cm right adrenal mass appear low density on noncontrast images and suggest bilateral adrenal adenomas. The patient is status post cholecystectomy. Kidneys demonstrate bilateral cysts measuring up to 3.1 cm on the right kidney and 5 cm on the left kidney. The enteric system is without obstruction or acute inflammatory process evidence for prior partial sigmoid resection and anastomoses appears relatively normal. Pelvis is grossly unremarkable although evaluation is limited due to metallic streak artifact from right hip prosthesis. Abdominal aorta demonstrates atherosclerotic changes. No ascites. No intraperitoneal or retroperitoneal adenopathy. No mass lesion identified. Skeletal structures demonstrate osteopenia and degenerative changes without focal osseous abnormality. Sagittal images suggest mild compression deformity of T12 of uncertain chronicity. Impression: 1. No evidence for adenopathy, mass or metastatic disease. 2. Bilateral adrenal lesions most compatible with benign adenomas. 3. Simple appearing bilateral renal cysts. 4. Mild compression deformity of T12 likely chronic which a correlated clinically. 5. Further chronic changes as described above without evidence for acute abdominopelvic pathology. Signed by Harjinder Caruso MD 11/18/2016 08:06 P
--- NOTE | 2016-11-18 20:17 | REP ---
History of lymphoma. Technique: Axial contrast enhanced images from the thoracic inlet to the upper abdomen using 100 ml Isovue 370 intravenous contrast material with coronal and sagittal re-formations. Comparison: None. Findings: Lung case demonstrate mild biapical scarring as well as subtle scattered subpleural and bibasilar fibrosis. Calcified right hilar lymph nodes and nodule in the periphery of the right upper lobe consistent with prior granulomatous disease. No acute consolidation, significant nodule or mass lesion. Mild perihilar and basilar bronchiectasis. No pleural effusion/reaction or pneumothorax. No axillary, hilar, or mediastinal adenopathy. Mediastinum demonstrates atherosclerotic changes to the thoracic aorta and coronary arteries without aortic aneurysm/dissection, cardiomegaly or pericardial effusion. Musculoskeletal structures demonstrate degenerative changes and very mild likely chronic compression deformity at T12. Impression: Chronic mediastinal and pleuroparenchymal changes. No adenopathy. No acute mediastinal or pleuroparenchymal process. Subtle compression deformity at T12. Signed by Harjinder Caruso MD 11/18/2016 08:09 P
[2016-11-18 20:30] VITALS: BP 123/67
[2016-11-18] MEDS: PRAVASTATIN 20 MG TAB PO SCH (21:26)
[2016-11-19 05:11] VITALS: BP 145/59
[2016-11-19 07:39] LABS: INR 1.57
[2016-11-19] MEDS: MESALAMINE 250 MG CR CAP PO SCH ×3 (08:36→22:18)
[2016-11-19] MEDS: PANTOPRAZOLE 40MG TAB (PROTONIX) PO SCH (08:36)
[2016-11-19] MEDS: ATENOLOL 50 MG TAB PO SCH (08:37)
[2016-11-19] MEDS: DOCUSATE SODIUM 100 MG CAP PO SCH ×2 (08:37→22:19)
[2016-11-19 14:00] VITALS: BP 126/64
--- NOTE | 2016-11-19 15:54 | IPNPDOC ---
Subjective Date Seen The patient was seen on 11/19/16. Subjective Chief Complaint/HPI The patient is a 81-year-old male admitted with a reason for visit of Right Hip Fx. Events since last encounter Pt states he is feeling well. Pt states he is anxious for d/c. ENT: Denies: Dysphagia, Ear Pain, Head Aches Pulmonary: Denies: Cough, Dyspnea Cardiovascular: Denies: Chest Pain, Palpitations, Paroxysmal Noc. Dyspnea Gastrointestinal: Denies: Abdominal Pain, Constipation, Diarrhea, Nausea, Vomiting Genitourinary: Denies: Dysuria, Frequency, Incontinence, Retention Objective Physical Examination General Exam: Positive: Alert Eye Exam: Positive: PERRLA ENT Exam: Positive: Atraumatic Chest Exam: Positive: Clear to auscultation, Normal air movement Heart Exam: Positive: Normal S1, Normal S2, Rate Normal, Regular Rhythm, Negative: Murmurs, Rubs Abdomen Exam: Positive: Normal bowel sounds, Soft, Negative: Hepatospenomegaly, Tenderness Skin Exam: Positive: Nl turgor and temperature Assessment /Plan Problems (1) Fracture of femoral neck, right, closed Status: Acute Problem Text: * PT/OT as per Rehab * Coumadin as per Ortho. * Pathology Rt femur B cell lymphoma- * Oncology consulted, ensure Pt has outpt f/u at d/c. * Cancer Navigator consulted * Appt with Dr Galeas 11/26/16. (2) Afib Status: Chronic Problem Text: * Atenolol/Coumadin (3) HLD (hyperlipidemia) Status: Chronic Problem Text: * Pravachol (4) CAD (coronary artery disease) Status: Chronic Problem Text: * Atenolol (5) Ulcerative colitis Status: Chronic Problem Text: * Pentasa Plan/VTE VTE Prophylaxis Ordered?: Yes (Coumadin as per Orthopedics. ) Disposition As per ARU. VS, I&O, 24H, [facility] Vital Signs/I&O Vital Signs Date Time Temp Pulse Resp B/P Pulse Ox O2 Delivery O2 Flow Rate FiO2 11/19/16 14:00 98.3 76 18 126/64 96 Room Air I&O- Last 24 Hours up to 6 AM 11/19/16 06:00 Intake Total 2240 ml Output Total 1875 ml Balance 365 ml Laboratory Data 24H LABS Laboratory Tests 2 11/19/16 07:07: Lactate Dehydrogenase 262H, Prothromb Time International Ratio 1.57, Prothrombin Time 18.9H Microbiology Microbiology 11/14/16 Urine Culture - Final, Complete Shelbie Almanza Nov 19, 2016 15:54
[2016-11-19] MEDS ORDERED: WARFARIN SOD 5 MG TAB PO ONE (17:00)
--- NOTE | 2016-11-19 17:52 | IPNPDOC ---
Tank [employer] Gauger Progress Note DATE OF SERVICE: 11/19/2016 DATE OF ADMISSION: Nov 13, 2016 at 13:15 INPATIENT REHABILITATION ADMISSION DAY: #6 SUBJECTIVE: Patient is a 81-year-old white male with logic right hip fracture secondary to lymphoma hemiarthroplasty. We have discussed patient's lymphoma diagnosis and current plans for radiation oncology with him as well as his daughter and granddaughter. Fox will see patient on 11/26/16 at 9 AM at the radiation oncology office at [facility]. Patient notes that the diagnosis came as a bit of a shock last night. However, he reports he is doing well without pain or other problems at this time. He expresses that he is very motivated to return to home tomorrow ALLERGIES: See Below MEDICATIONS ON ADMISSION: Reviewed, see below. OBJECTIVE: VITAL SIGNS: Please see below. PHYSICAL EXAMINATION: GENERAL: Well-nourished well-developed elderly white male who looks younger than his stated age of 81 healing right posterior hip incision. Patient is somewhat hard of hearing but alert and well oriented and in good spirits HEENT: Normocephalic/atraumatic. CARDIOVASCULAR: Regular rate and rhythm with normal S1 and S2, and 2/4 bilateral radial pulses LUNGS: All case clear to auscultation. ABDOMEN: Obese nontender and benign with normal bowel sounds throughout. NEUROLOGICAL: Intact with some communication problem related to hearing LABORATORY DATA: Reviewed. Please see below. MICROBIOLOGY: Please see below. IMAGING: CT scans do not show any lesions consistent with abdominal or pelvic lymphomas. DVT prophylaxis ordered?: Yes ASSESSMENT AND PLAN: 1. Rehabilitation rehabilitation of right hip fracture and hemiarthroplasty secondary to pathologic lesion. Patient showing good mobility and self-care skill and family able to provide support for patient to return safely home tomorrow. 2. Lymphoma: Patient has been seen by Dr. Smart and is scheduled to see Dr. Braxton after discharged as noted above. He is felt to be a good candidate for radiation therapy as he is felt to have stage I B-cell lymphoma that is localized to the right hip area. TIME SPENT: Time spent in chart review, team rounds and direct exam and explanation of lipoma diagnosis to patient and family is greater than 40 minutes. Allergies Coded Allergies: No Known Allergies (Unverified , 11/10/16) Vital Signs Vital Signs Date Time Temp Pulse Resp B/P Pulse Ox O2 Delivery O2 Flow Rate FiO2 11/19/16 14:00 98.3 76 18 126/64 96 Room Air Laboratory Data Labs 24H Laboratory Tests 2 11/19/16 07:07: Lactate Dehydrogenase 262H, Prothromb Time International Ratio 1.57, Prothrombin Time 18.9H Microbiology Microbiology 11/14/16 Urine Culture - Final, Complete Current Medications Current Medications Current Medications Acetaminophen (Tylenol Tab) 650 mg Q4HP PRN PO MILD PAIN (PS 1-4); Start at 13:00; Stop 12/13/16 at 12:59 Atenolol (Tenormin) 50 mg DAILY PO Last administered on 11/19/16 08:37; Start 11/14/16 at 09:00; Stop 12/14/16 at 08:59 Docusate Sodium (Colace) 100 mg BID PO Last administered on 11/18/16 21:26; Start 11/13/16 at 21:00; Stop 12/13/16 at 20:59 Mesalamine (Pentasa) 1,000 mg TID PO Last administered on 11/19/16 15:36; Start 11/13/16 at 16:00; Stop 12/13/16 at 15:59 Oxycodone/ Acetaminophen (Percocet 5mg/ 325mg Tablet) 1 tab Q4HP PRN PO MODERATE/SEVERE PAIN (PS 5-10); Start 11/13/16 at 13:00; Stop 11/19/16 at 10:03 ; Status DC Pantoprazole Sodium (Protonix) 40 mg DAILY PO Last administered on 11/19/16 08 :36; Start 11/14/16 at 09:00; Stop 12/14/16 at 08:59 Polyethylene Glycol (Miralax) 1 pkt DAILY PRN PO CONSTIPATION; Start 11/13/16 at 13:00; Stop 12/13/16 at 12:59 Pravastatin Sodium (Pravachol) 20 mg QHS PO Last administered on 11/18/16 21: 26; Start 11/13/16 at 21:00; Stop 12/13/16 at 20:59 ROZINA CAVAZOS MD Nov 19, 2016 17:52
--- NOTE | 2016-11-19 18:37 | CR ---
DATE OF CONSULTATION: 11/18/2016 Dr. Taryn Schmitt requested medical oncology consult for management recommendations regarding newly diagnosed diffuse large B-cell lymphoma. Mr. Chapman is an 81-year-old gentleman with a personal history of coronary artery disease status post myocardial ([place]), hypertension, ulcerative colitis who currently lives in the local area with grown children nearby. He is admitted currently after sustaining a fall and right hip fracture with pathology on the right hip arthroplasty revealing diffuse large B-cell lymphoma not meeting criteria for double-hit lymphoma. Specifically pathology on the November 12 specimen showed diffuse large B-cell lymphoma germinal center type involving right femur. Lack of greater than 40% c-Myc positivity on immunohistochemistry precludes classification as double expressor DLBCL. Mr. Chapman is status post right hip arthroplasty with Dr. Gareth Mccormick. He is on the inpatient rehabilitation service. He is using a walker, weightbearing and reports doing fairly well. He is a heavy-set older gentleman reclining in bed, beginning his supper as i entered the room. He is very pleasant, in no distress. PAST MEDICAL HISTORY: Hypertension, coronary artery disease (CAD), status post myocardial infarction (AK), ulcerative colitis. PAST SURGICAL HISTORY: Status post percutaneous transluminal coronary angioplasty (PTCA), appendectomy, cholecystectomy. ALLERGIES: No known drug allergies. MEDICATIONS AT HOME: - atenolol 50 mg daily - Pravachol 20 mg daily - Coumadin currently dosed for post orthopedic procedure - Pentasa 1000 mg three times a day - Protonix 40 mg - Senokot twice a day - MiraLAX one packet daily - milk of magnesia as needed - Percocet one tablet every 4 hours post-surgery as needed - acetaminophen 650 mg every 4 hours as needed SOCIAL HISTORY: The patient lives with his . Has a personal smoking history 40 pack-year, stopped in 1991. Drinks alcohol occasionally. FAMILY HISTORY: Not elicited. REVIEW OF SYSTEMS: The patient denies a recent history of fevers, chills, sweats , or unintended weight loss, though about the last he is not totally sure. He denies a long period of pain in his hip before his fall but did have some pain while leaning into a hill which preceded the fall. He denies any new lumps, bumps, itching, rashes, feeling faint, nosebleeds or spontaneous bruising in the last several months. The remainder of complete 12 system review is negative. PHYSICAL EXAMINATION: VITAL SIGNS: 2:00 p.m. temperature 98.4, blood pressure 137/62, heart rate 96, respiratory rate 20. Patient is an overweight, pleasant man in his pajamas and clothes over the pajamas reclining in bed. He reports lying "in his poop" and requests a clean up from the nurse but is happy to have me visit for a few minutes. He is very pleasant, polite gentleman. HEENT: No scleral icterus. Oropharynx: Moist pink mucous membranes. No palpable thyromegaly. RESPIRATORY: Clear lungs to auscultation bilaterally anterior and posteriorly. CARDIAC: S1, S2, distant heart sounds. Regular rate and rhythm. No murmurs or gallops. ABDOMEN: Nondistended, nontender, no palpable hepatosplenomegaly. EXTREMITIES: No edema. LYMPH NODES: No palpable submandibular, cervical, supraclavicular, axillary or inguinal adenopathy bilaterally. LABORATORY DATA: As of November 17, WBC 9.2, hemoglobin and hematocrit 10 and 30, respectively, platelets normal, lymphocyte percentage is low at 19, mild neutrophilia, creatinine 0.67, calcium 7.7. No albumin available. IMAGING STUDIES: Abdomen, pelvis and chest CT has been performed. No formal read yet. On my review of the images, I am not seeing bulky adenopathy in either the abdomen and pelvis or chest, but I will defer to final radiologist's read. I do not see any obvious pulmonary parenchymal masses. Lauri Chapman is an 81-year-old man admitted with a right hip fracture, found to have diffuse large B-cell lymphoma, non double-hit expressor involving the right femur, an extra edmund site of large B-cell lymphoma without clear-cut evidence of edmund disease yet, staging underway. He has no clear B symptoms. At this point, I am recommending we wait and finally stage with scans for any further evidence of lymphoma. If there is a single site of disease, this would be stage 1E and could be treated, following surgical stabilization, with radiation and in an 81-year-old man, possible consideration of systemic therapy versus radiation alone. PLAN: 1. Followup chest, abdomen, pelvis results. Staging can be completed based on these. I would not recommend brain imaging as intracranial metastases from a right hip lymphoma are extremely unlikely. 2. Recommend obtaining serum LDH as part of baseline prognostic scoring (IPI internation prognostic index uses baseline age, number of sites involved/ advanced stage, baseline hemoglobin, and baseline LDH). 3. I will follow intermittently as needed during this admission. I asked Mr. Chapman about family members. He says some family are coming tomorrow. I left my card with our office number if any of the family wish to call and speak to me during the day tomorrow. Finally, an inpatient radiation oncology consult may be recommended for consolidative radiation following hip stabilization. Of note, the oncology nurse navigator's number is [phone]. Her name is Allison Hanley. She has available for any questions through his stay and can quickly be in touch with me and help coordinate issues that arise. Thank you for this consult. DARA
[2016-11-19 20:00] VITALS: BP 116/53
[2016-11-19] MEDS: PRAVASTATIN 20 MG TAB PO SCH (22:19)
[2016-11-20 06:00] VITALS: BP 121/67
[2016-11-20] MEDS ORDERED: COUM2.5T11 PO ×2 (06:37→11:33)
[2016-11-20 07:38] LABS: INR 1.71
[2016-11-20 08:54] VITALS: BP 121/67
[2016-11-20] MEDS: MESALAMINE 250 MG CR CAP PO SCH (08:54)
[2016-11-20] MEDS: PANTOPRAZOLE 40MG TAB (PROTONIX) PO SCH (08:54)
[2016-11-20] MEDS: ATENOLOL 50 MG TAB PO SCH (08:54)
[2016-11-20] MEDS: DOCUSATE SODIUM 100 MG CAP PO SCH (08:54)
[2016-11-20] MEDS ORDERED: WARFARIN SOD 2.5 MG TAB PO SCH (17:00)
--- NOTE | 2016-11-20 21:51 | PMRDS ---
DATE OF ADMISSION: 11/13/2016 DATE OF DISCHARGE: 11/20/2016 DISCHARGE DIAGNOSES: 1. Rehabilitation of pathologic fracture of the right hip with thomas-arthroplasty placement. 2. Large B cell lymphoma of the right hip. 3. Hypertension. 4. Coronary artery disease status post myocardial infarction ([place]) infarction. 5. Ulcerative colitis. 6. Prior to admission, 11/11/2016 right hip thomas-arthroplasty. HISTORY OF PRESENT ILLNESS: Patient is an 81-year-old white male with known coronary artery disease and ulcerative colitis who [place]. He was found to have a fracture of his right femoral neck and was evaluated at [facility] where he was found to have a right femoral neck fracture. Patient was medically cleared on that day on 11/11/2016 for right hip thomas-arthroplasty. Patient did have some postoperative delirium, but cleared and was showing good progress in therapy, therefore patient able to benefit from and willing to participate in, and able to participate in was admitted to the rehabilitation unit on 11/13/2016. He was started on a program of physical and occupational therapy evaluation and training. PROCEDURES PERFORMED DURING ADMISSION: CT scan of the right hip and pelvis and CT scan of the thorax after surgical pathology showed the large B cell lymphoma which caused pathologic fracture of his right hip. The studies were performed on 11/18/2016 and were found not to show a additional lymphoma, just some adenomas by the adrenal glands. Pertinent laboratory examination showed the patients hemoglobin and hematocrit running from 11 to 10 approximately for hemoglobin, and 32.6 to 34 for hematocrit with an initial 11/14/2016 white blood count of 12.4, that cleared to 9.2 on 11/17/2016. Patient was placed on Coumadin and was taking 2.5 mg per day. His INR during admission has ranged from 2.28 to today's 1.71. HOSPITAL COURSE: Patient admitted on 11/13/2016 and started on a program of physical and occupational therapy with rehabilitation nursing. Patient had been fairly motivated and showed good participation and progressive mobility using a walker. He has had very little problems with pain and is felt to be modified independent and dependent on most activities though he continues to have some weakness in the right hip itself. However, he is capable with family who has been active in his care and training to return home today. His course has been essentially uncomplicated. PATIENT'S DISCHARGE MEDICATIONS: Include - Coumadin 2.5 mg by mouth every day for the next 10 days. He is to see his primary care on establishing Coumadin management and tracking before 10 days. - Atenolol 50 mg every day for hypertension. - Pentasa 500 mg capsule, 2 capsules by mouth three times a day - nitroglycerin 0.3 mg sublingual every 5 minutes as needed for chest pain - omeprazole 20 mg every day - Asha LAX one packet powder daily - Pravastatin 20 mg by mouth every day - Senokot plus 8.6/50 one tablet by mouth twice a day - Fleet enema, one enema per rectum as needed daily as needed for constipation COMPLICATIONS: None. DISPOSITION PLAN: Patient is to follow up with his primary care within the next week and to see Dr. Galeas at the [facility] office on 11/26/2016 at 9:00 a.m. Patient is to proceed with home care and fpc including drawing INRs/Pro times. Physical and occupational therapy to continue to work on strengthening and mobility, Activities of daily living skills as well as hip range of motion. Patient should continue with posterior hip precautions.
== END 2016-11-20 12:55 | disposition home health service (06) | DRG 560 ==
LOC: M PM&R 13:15
PROVIDERS: ADMIT Physical Medicine & Rehabilitation; ATTEND Physical Medicine & Rehabilitation
DX: M84.451D Pathological fracture, right femur, subsequent encounter for fracture with routine healing (principal); D62 Acute posthemorrhagic anemia; K51.90 Ulcerative colitis, unspecified, without complications; C83.35 Diffuse large B-cell lymphoma, lymph nodes of inguinal region and lower limb; I10 Essential (primary) hypertension; I48.91 Unspecified atrial fibrillation; E78.5 Hyperlipidemia, unspecified; R19.7 Diarrhea, unspecified; R26.9 Unspecified abnormalities of gait and mobility; I25.10 Atherosclerotic heart disease of native coronary artery without angina pectoris; I25.2 Old myocardial infarction; Z95.5 Presence of coronary angioplasty implant and graft; Z79.899 Other long term (current) drug therapy; Z87.891 Personal history of nicotine dependence; Z90.49 Acquired absence of other specified parts of digestive tract; Z79.01 Long term (current) use of anticoagulants

== ENCOUNTER → 2016-11-24 | Outpatient (REF) | payer MEDICARE ==
[~2016-11-24] MED LIST changes: +COUM2.5T11 PO; +EC-881TA PO; +FLEEENE4 PR; +MILKSUS PO; +PEG1POW PO; +PERCOCET PO; +PRIL20CA9 PO; +SENN1TAB2 PO
[2016-11-24 18:53] LABS: INR 1.85
== END ==
LOC: M SHH 17:54
PROVIDERS: ATTEND Orthopaedic Surgery
DX: Z79.01 Long term (current) use of anticoagulants (principal)

== ENCOUNTER → 2016-11-26 | Outpatient (CLI) | payer MEDICARE ==
--- NOTE | 2016-11-26 13:54 | RADONC ---
RADIATION ONCOLOGY CONSULTATION NOTE DATE: 11/26/2016 CHART NUMBER: [id number]. DIAGNOSIS: Diffuse large B-cell lymphoma. STAGE: IAE. ECOG PERFORMANCE STATUS: 1 CONSULTATION NOTE: Mr. Chapman is very pleasant 81-year-old white male with the diagnosis of a stage IAE diffuse large B-cell lymphoma involving his right femur who is presenting to us today for consideration of definitive external beam radiation therapy in an attempt to achieve local control. HISTORY OF PRESENT ILLNESS: The patient was in his usual state of health until recently when he fell and presented to our emergency department. An x-ray of the right hip showed a right femoral neck fracture on 11/10/2016. On 11/11/2016 the patient underwent surgical repair and jared placement. Pathology revealed a diffuse large B-cell lymphoma involving his right femur. Subsequent x-rays included a bone scan that was done on 11/11/2016, which showed increased uptake in his right femoral neck. There was a mild ill-defined increased uptake in the mid third of the femoral shaft on the left side, but that was of uncertain significance. No other bony abnormalities were seen. A CT scan of the chest on 11/18/2016 showed no adenopathy. There was some subtle compression deformity at T12. A CT scan of the abdomen and pelvis done 11/18/2016 again showed no evidence of adenopathy, mass or metastatic disease. There were bilateral adrenal lesions compatible with benign adenomas. No other disease was seen. The patient was therefore staged as a stage IAE diffuse large B-cell lymphoma involving his right femur. PET scan has not yet been done. PAST MEDICAL HISTORY: The patient's past medical history is positive for two myocardial infarctions. He has a history of ulcerative colitis. The patient had a cholecystectomy in the past as well as a vasectomy and an appendectomy. ALLERGIES: The patient has no known drug allergies. SOCIAL HISTORY: The patient has smoked two packs of cigarettes per day for 17 years. He quit in 1989. He drinks alcohol socially. FAMILY HISTORY: The patient's family history is positive for a mother with breast cancer. REVIEW OF SYSTEMS: The patient's review of systems is positive for weakness in his arms and legs and decreased energy. This has given him some physical limitations. He also has a history of colitis, which causes some diarrhea. He denies nausea, vomiting, fevers, chills, night sweats, diplopia, headaches, anxiety or depression, anorexia, weight loss, visual disturbances, chest pain, shortness of breath, urinary problems or neurological problems. PHYSICAL EXAMINATION: The patient is an elderly frail male in no acute distress. HEENT exam is normocephalic, atraumatic. Excellent extraocular movements are intact. There is no palpable cervical, supraclavicular, infraclavicular, axillary or inguinal lymphadenopathy present. His lungs are clear to auscultation and percussion. His heart has regular rate and rhythm. His abdomen is benign with no splenomegaly, masses or tenderness. Skeletal examination reveals no tenderness to pressure or percussion of the bony skeleton. Extremities reveal no clubbing, cyanosis or edema. Neurologic exam is grossly intact. ASSESSMENT: At the present time this patient appears to be presenting with a stage IAE diffuse large B-cell lymphoma of his right femur. In light of his overall condition, I agree with Dr. Boyer that it may be prudent to offer this person definitive radiation therapy rather than chemotherapy. Prior to making a final decision, I have ordered a PET scan for further evaluation and staging. If indeed this disease is localized radiation can be localized to his femoral region. I do not anticipate any significant side effects from this as we should be well off his intestines. He does have a history of colitis and I would to avoid that region as much as possible. I have discussed with the patient in detail the potential benefits as well as possible acute and chronic sequelae of external beam radiation therapy. We discussed the logistics of treatment planning, simulation and subsequent fractionated daily radiation treatments. I have tentatively set the patient up for our next available simulation slot and radiation treatments will follow. As mentioned above, I have ordered a PET scan for further evaluation. Pending those results, my recommendations may change. Thank you for allowing us to participate in the care of this very pleasant gentleman. If I could be of any further assistance or provide you with any information, please free to contact me anytime. cc: Jerilyn Boyer MD *SELIN Nunez
== END ==
LOC: M ONCR 08:56
PROVIDERS: ATTEND Radiology Radiation Oncology
DX: C85.10 Unspecified B-cell lymphoma, unspecified site (principal)

== ENCOUNTER → 2016-12-03 | Outpatient (REF) | payer MEDICARE ==
[2016-12-03 12:42] LABS: INR 2.27
== END ==
LOC: M LAB REF 12:09
PROVIDERS: ATTEND Orthopaedic Surgery
DX: Z79.01 Long term (current) use of anticoagulants (principal)

== ENCOUNTER → 2016-12-07 | Outpatient (REF) | payer MEDICARE ==
[2016-12-07 12:13] LABS: INR 1.79
== END ==
LOC: M SHH 11:49
PROVIDERS: ATTEND Orthopaedic Surgery
DX: Z79.01 Long term (current) use of anticoagulants (principal)

== ENCOUNTER → 2017-05-27 | Outpatient (CLI) | payer MEDICARE ==
[~2017-05-27] MED LIST changes: +ASPI1TAB15 PO; -ASPI81TA7 PO; -COUM2.5T11 PO; +COUM2.5T17 PO
--- NOTE | 2017-05-27 10:03 | REP ---
Left hip two-view : There is no fracture or dislocation. Mineralization and joint spaces are normal. There are no calcifications or foreign bodies. Impression: Negative Left hip . Signed by Rock Johnson MD 05/27/2017 09:54 A
== END ==
LOC: M LRY 09:33
PROVIDERS: ATTEND Nurse Practitioner Family
DX: M25.552 Pain in left hip (principal)
CPT/HCPCS: 73502; G0463

== ENCOUNTER → 2017-06-03 | Outpatient (REF) | payer MEDICARE ==
[2017-06-03 13:42] LABS: BLOOD UREA NITROGEN 14 MG/DL (7-18); CREATININE FOR GFR 0.85 MG/DL (0.70-1.30); GLOMERULAR FILTRATION RATE > 60.0 (>35)
== END ==
LOC: M LABDRAW1 10:39
PROVIDERS: ATTEND Orthopaedic Surgery
DX: Z96.641 Presence of right artificial hip joint (principal)

== ENCOUNTER → 2017-06-04 | Outpatient (CLI) | payer MEDICARE ==
--- NOTE | 2017-06-04 10:48 | REP ---
MRI STUDY LEFT HIP WITHOUT AND WITH IV GADOLINIUM: HISTORY: History of lymphoma. Question stress fracture versus tumor. Comparison CT study November 18, 2016. Comparison radiographs May 27, 2017. 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 TECHNIQUE: Axial, sagittal and coronal imaging planes are utilized. T1- and T2-weighted scans were obtained with and without fat saturation in the usual fashion. GADOLINIUM ENHANCEMENT DOSE: 19 mL of intravenous ProHance. MRI FINDINGS: There are areas of suspicious abnormal bone marrow signal intensity in the left iliac bone, left superior pubic ramus, and left proximal femur. The most extensive areas in the proximal femur filling the femoral neck extending up to approximately the level of the closed growth plate proximally and extending distally into the intertrochanteric and subtrochanteric femur, 9 cm in craniocaudal span x 4.1 cm obliquely medial to lateral x 3.1 cm anterior to posterior. T2-weighted scans through the left femoral neck show an incomplete irregular low T1, low T2 signal intensity fracture line consistent with a developing fracture. There is a small joint effusion in the left hip. No other fracture is seen. No loose body is seen. The iliac bone lesion measures 0.7 cm anteroposterior x 2.9 cm craniocaudal. This is located in the iliac bone approximately 1.3 cm above the acetabular portion. The superior pubic ramus lesion is elongate approximate 5 cm along the superior pubic ramus x 1.8 cm craniocaudal. No definite fracture is seen in either of these lesions. No other lesion is observed. Magnetic field susceptibility artifact is seen emanating from the right hip. Post-gadolinium enhanced images show contrast enhancement in the lesions described above. IMPRESSION: Foci of abnormal marrow replacement signal intensity in the left iliac bone, left superior pubic ramus, and extensively in the intertrochanteric and femoral neck region of the left proximal femur. These areas are compatible with lymphomatous involvement in the bone marrow. There is a fracture line in the left femoral neck consistent with an incomplete fracture. Signed by Jesse Brown MD 06/04/2017 03:09 P
== END ==
LOC: M PLARAD 07:34
PROVIDERS: ATTEND Orthopaedic Surgery
DX: S72.009A Fracture of unspecified part of neck of unspecified femur, initial encounter for closed fracture (principal); X58.XXXA Exposure to other specified factors, initial encounter; Y93.9 Activity, unspecified; Y92.9 Unspecified place or not applicable; Y99.8 Other external cause status
CPT/HCPCS: 73723; A9576

== ENCOUNTER → 2017-08-05 | Outpatient (CLI) | payer MEDICARE ==
--- NOTE | 2017-08-06 09:08 | RADONC ---
RADIATION ONCOLOGY RE-CONSULTATION NOTE DATE: 08/05/2017 CHART NUMBER: [id number] DIAGNOSIS: Diffuse large B-cell lymphoma. STAGE : Recurrent. ECOG PERFORMANCE STATUS: 1. CONSULTATION NOTE: Mr. Chapman is a very pleasant 82-year-old white male with the diagnosis of a diffuse large B-cell lymphoma involving both his left and right femurs who has undergone surgical repair and jared placement bilaterally and is now presenting for consideration of postoperative radiation therapy in an attempt to increase the likelihood of achieving local control and stabilization. HISTORY OF PRESENT ILLNESS: The patient was in his usual state of health until a fall in October 2016. An x-ray of his right hip showed a right femoral neck fracture on 11/10/2016. On 11/11/2016 he underwent surgical repair and jared placement. Pathology revealed a diffuse large B-cell lymphoma involving his right femur. Subsequent x-rays including a bone scan were done on 11/11/2016 which showed increased uptake in the right femoral neck. There was mild ill-defined increased uptake in the mid third of the femoral shaft on the left side. It was of unknown significance. The patient presented to me on 11/26/2016 for consideration of postoperative radiation therapy. We deemed the patient a candidate for treatment at that time and had scheduled him for simulation and initiation of treatment planning. Apparently, the patient has discussed this and decided against treatment at that time. He removed himself from our treatment planning and follow-up schedules. Since then the patient has now undergone surgical correction of his left femur. Surgery was done on July 08, 2017 and pathology revealed once again a large B-cell lymphoma. The patient has done well since surgery and now is presenting once again for consideration of postoperative radiation therapy in an attempt to stabilize this area. PAST MEDICAL HISTORY: The patient's past medical history is positive for two myocardial infarctions. He has a history of ulcerative colitis. The patient had a cholecystectomy in the past as well as a vasectomy and an appendectomy. ALLERGIES: The patient has no known drug allergies. SOCIAL HISTORY: The patient has smoked two packs of cigarettes per day for 17 years. He quit in 1989. He drinks alcohol socially. FAMILY HISTORY: The patient's family history is positive for mother with breast cancer. REVIEW OF SYSTEMS: The patient's review of systems is positive for weakness in his arms and legs and decreased energy. He has general physical limitations. He also has chronic colitis and diarrhea. He denies nausea, vomiting, fevers, chills, night sweats, diplopia, headaches, anxiety, depression, anorexia, weight loss, visual disturbances, chest pain, urinary difficulties or neurological problems. PHYSICAL EXAMINATION: The patient is a well-developed, well-nourished male in no acute distress. HEENT exam is normocephalic, atraumatic. Extraocular movements are intact. There is no palpable cervical, supraclavicular, infraclavicular, axillary, or inguinal lymphadenopathy present. Lungs are clear to auscultation and percussion. Heart has a regular rate and rhythm. Abdomen is benign with no hepatosplenomegaly, masses, or tenderness. Rectal examination reveals a normal anal sphincter tone. His prostate is smooth with no evidence of nodularity. Skeletal examination reveals no tenderness to pressure or percussion of the bony skeleton. Extremities reveal no clubbing, cyanosis, or edema. Neurologic exam is grossly intact as is the remainder of the physical examination. ASSESSMENT: Clearly the patient is a candidate for palliative radiation therapy postoperatively and I have so informed him. I have discussed with the patient and his daughter with the potential benefits as well as possible acute and chronic sequelae of external beam radiation therapy. We have discussed logistics of treatment planning, simulation and subsequent fractionated daily radiation treatments. The patient appears to be quite willing at this time to undergo therapy and I have scheduled him for the next available simulation slot. Radiation treatment planning will be undertaken at that time and subsequent fractionated daily radiation should begin in a week or so. The patient is scheduled to be seen by medical oncology next week. I will defer to Mr. Chapman and is family with regards to any decisions made with the medical oncologist about systemic therapy. Thank you for allowing us to participate in the care of this very pleasant gentleman. If I could be of any further assistance please free to contact me anytime. cc: MD Jerilyn Pantoja MD Fredrick Tontarski, PA
== END ==
LOC: M ONCR 12:54
PROVIDERS: ATTEND Radiology Radiation Oncology
DX: C83.30 Diffuse large B-cell lymphoma, unspecified site (principal)

== ENCOUNTER 2017-08-09 14:04 | Outpatient (RCR) | payer MEDICARE | END 2017-08-22 | LOC: M ONCR 14:04 | DX: C83.39 Diffuse large B-cell lymphoma, extranodal and solid organ sites (principal) | CPT/HCPCS: 77307 ==

== ENCOUNTER → 2017-08-09 | Outpatient (CLI) | payer MEDICARE | LOC: M RAD 13:45 | PROVIDERS: ATTEND Radiology Radiation Oncology | DX: C83.39 Diffuse large B-cell lymphoma, extranodal and solid organ sites (principal) ==

== ENCOUNTER 2017-08-24 10:43 | Outpatient (RCR) | payer MEDICARE | END 2017-09-22 | LOC: M ONCR 10:43 | DX: C83.39 Diffuse large B-cell lymphoma, extranodal and solid organ sites (principal) | CPT/HCPCS: 77336 ==

== ENCOUNTER → 2017-10-13 | Outpatient (CLI) | payer MEDICARE | LOC: M ONCR 09:42 | DX: C83.39 Diffuse large B-cell lymphoma, extranodal and solid organ sites (principal) | CPT/HCPCS: G0463 ==

== ENCOUNTER → 2017-10-17 | Outpatient (REF) | payer MEDICARE | LOC: M LAB REF 09:36 | DX: K51.90 Ulcerative colitis, unspecified, without complications (principal) | CPT/HCPCS: 87507 ==

== ENCOUNTER → 2017-12-14 | Outpatient (CLI) | payer MEDICARE | LOC: M ONCR 13:51 | DX: C83.39 Diffuse large B-cell lymphoma, extranodal and solid organ sites (principal) | CPT/HCPCS: G0463 ==

== ENCOUNTER → 2018-01-12 | Outpatient (CLI) | payer MEDICARE | LOC: M ONCR 11:03 | DX: C83.39 Diffuse large B-cell lymphoma, extranodal and solid organ sites (principal) | CPT/HCPCS: G0463 ==

== ENCOUNTER → 2018-03-01 | Outpatient (REF) | payer MEDICARE ==
[2018-03-01 11:41] LABS: HEMOGLOBIN 14.4 g/dl (13.5-17.5); MEAN CORPUSCULAR HEMOGLOBIN 30.6 pg (27.0-33.0); MEAN CORPUSCULAR HGB CONC 34.3 g/dl (32.0-36.5); MEAN CORPUSCULAR VOLUME 89.4 fl (80.0-96.0); PLATELET COUNT, AUTOMATED 191 10^3/uL (150-450); RED CELL DISTRIBUTION WIDTH 13.1 % (11.5-14.5); WHITE BLOOD COUNT 10.1 10^3/uL (4.0-10.0)
[2018-03-01 11:59] LABS: ESTIMATED AVERAGE GLUCOSE 111 MG/DL (60-110); HEMOGLOBIN A1c 5.5 %
[2018-03-01 12:14] LABS: ANION GAP 9 MEQ/L (8-16); BLOOD UREA NITROGEN 18 MG/DL (7-18); CARBON DIOXIDE LEVEL 27 MEQ/L (21-32); CHLORIDE LEVEL 106 MEQ/L (98-107); CHOLESTEROL LEVEL 167 MG/DL (<200); CHOLESTEROL RISK RATIO 2.492 (<5); CREATININE FOR GFR 1.02 MG/DL (0.70-1.30); GLOMERULAR FILTRATION RATE > 60.0 (>35); GLUCOSE, FASTING 106 MG/DL (70-100); HDL CHOLESTEROL 67 MG/DL (>40); LDL CHOLESTEROL 58.6 MG/DL (<100); NON-HDL-C 100 MG/DL; SODIUM LEVEL 142 MEQ/L (136-145); TRIGLYCERIDES LEVEL 207 MG/DL (<150)
== END ==
LOC: M SFHCLERA 10:28
DX: I25.118 Atherosclerotic heart disease of native coronary artery with other forms of angina pectoris (principal); Z51.81 Encounter for therapeutic drug level monitoring; Z79.52 Long term (current) use of systemic steroids; E78.5 Hyperlipidemia, unspecified; G31.84 Mild cognitive impairment of uncertain or unknown etiology
CPT/HCPCS: 83036

== ENCOUNTER → 2018-03-22 | Outpatient (CLI) | payer MEDICARE | LOC: M LRY 13:10 | DX: J98.11 Atelectasis (principal) | CPT/HCPCS: 71046; G0463 ==

== ENCOUNTER → 2018-03-29 | Outpatient (REF) | payer MEDICARE | LOC: M SFHCLERA 14:35 | DX: R30.0 Dysuria (principal) | CPT/HCPCS: 87088; 87186 ==

== ENCOUNTER → 2018-05-05 | Outpatient (REF) | payer MEDICARE ==
[2018-05-05 18:22] LABS: ALBUMIN 3.1 GM/DL (3.2-5.2); ALBUMIN/GLOBULIN RATIO 1.07 (1.00-1.93); ALKALINE PHOSPHATASE 84 U/L (45-117); ALT/SGPT 14 U/L (12-78); ANION GAP 10 MEQ/L (8-16); AST/SGOT 22 U/L (7-37); BILIRUBIN,TOTAL 0.4 MG/DL (0.2-1.0); BLOOD UREA NITROGEN 9 MG/DL (7-18); CALCIUM LEVEL 8.9 MG/DL (8.8-10.2); CARBON DIOXIDE LEVEL 25 MEQ/L (21-32); CHLORIDE LEVEL 107 MEQ/L (98-107); CREATININE FOR GFR 0.82 MG/DL (0.70-1.30); GLOMERULAR FILTRATION RATE > 60.0 (>35); GLUCOSE, FASTING 93 MG/DL (70-100); NT-PRO BNP 295 PG/ML (<450); POTASSIUM SERUM 4.4 MEQ/L (3.5-5.1); SODIUM LEVEL 142 MEQ/L (136-145)
[2018-05-05 20:03] LABS: APPEARANCE, URINE CLEAR (CLEAR); BACTERIA, URINE AUTO NEGATIVE (NEGATIVE); BILIRUBIN, URINE AUTO NEGATIVE (NEGATIVE); BLOOD, URINE BLOOD NEGATIVE (NEGATIVE); COLOR, URINE YELLOW (YELLOW); GLUCOSE, URINE (UA) AUTO NEGATIVE (NEGATIVE); KETONE, URINE AUTO NEGATIVE (NEGATIVE); LEUKOCYTE ESTERASE, URINE AUTO 1+ (NEGATIVE); MUCUS, URINE SMALL (NEGATIVE); NITRITE, URINE AUTO NEGATIVE (NEGATIVE); PROTEIN, URINE AUTO NEGATIVE (NEGATIVE); RBC, URINE AUTO 1 /HPF (0-3); SPECIFIC GRAVITY URINE AUTO 1.008 (1.002-1.035); SQUAMOUS EPITHELIAL CELL UR AU 1 /HPF (0-6); UROBILINOGEN, URINE AUTO 0.2 mg/dL (0.0-2.0); WBC, URINE AUTO 14 /HPF (0-3)
== END ==
LOC: M SFHCLERA 11:21
DX: R63.5 Abnormal weight gain (principal); M79.89 Other specified soft tissue disorders
CPT/HCPCS: 84443

== ENCOUNTER → 2018-05-12 | Outpatient (REF) | payer MEDICARE ==
[2018-05-12 13:13] LABS: ANION GAP 9 MEQ/L (8-16); BLOOD UREA NITROGEN 7 MG/DL (7-18); CARBON DIOXIDE LEVEL 27 MEQ/L (21-32); CHLORIDE LEVEL 105 MEQ/L (98-107); GLOMERULAR FILTRATION RATE > 60.0 (>35); GLUCOSE, FASTING 108 MG/DL (70-100); SODIUM LEVEL 141 MEQ/L (136-145)
== END ==
LOC: M SFHCLERA 09:44
DX: M79.89 Other specified soft tissue disorders (principal)
CPT/HCPCS: 80048

== ENCOUNTER → 2018-06-07 | Outpatient (REF) | payer MEDICARE ==
[2018-06-07 18:03] LABS: ANION GAP 7 MEQ/L (8-16); BLOOD UREA NITROGEN 13 MG/DL (7-18); CALCIUM LEVEL 9.2 MG/DL (8.8-10.2); CARBON DIOXIDE LEVEL 30 MEQ/L (21-32); CHLORIDE LEVEL 102 MEQ/L (98-107); CREATININE FOR GFR 0.94 MG/DL (0.70-1.30); GLOMERULAR FILTRATION RATE > 60.0 (>35); GLUCOSE, FASTING 94 MG/DL (70-100); POTASSIUM SERUM 4.7 MEQ/L (3.5-5.1); SODIUM LEVEL 139 MEQ/L (136-145)
== END ==
LOC: M SFHCLERA 10:56
DX: R60.9 Edema, unspecified (principal); Z23 Encounter for immunization
CPT/HCPCS: 80048

== ENCOUNTER → 2018-06-12 | Outpatient (REF) | payer MEDICARE | LOC: M LAB REF 06-13 16:42 | DX: R19.7 Diarrhea, unspecified (principal) | CPT/HCPCS: 87507 ==

== ENCOUNTER → 2018-08-04 | Outpatient (CLI) | payer MEDICARE ==
[2018-08-04 20:41] LABS: IMMUNOGLOBULIN A 203 MG/DL (70-400)
[2018-08-07 00:41] LABS: TISSUE TRANSGLUTAMINASE IgG <2 U/mL (0-5)
[2018-08-07 00:41] LABS: ENDOMYSIAL ABY IgA Negative (Negative); TISSUE TRANSGLUTAMINASE IgA <2 U/mL (0-3)
== END ==
LOC: M LRY 15:28
DX: K51.90 Ulcerative colitis, unspecified, without complications (principal)
CPT/HCPCS: 86255

== ENCOUNTER 2018-08-24 00:32 | Inpatient (IN) | payer MEDICARE ==
[~2018-08-24] VITALS: Ht 190.5 cm; Wt 94.3 kg
[~2018-08-24 00:32] MED LIST changes: +ASPI1TAB PO; +FLOM0.4C39 PO; +MILK12002 PO; -MILKSUS PO; +NITR0.3S SL; -NITR3TA SL; +PRED20TA PO
[2018-08-24 01:37] LABS: HEMATOCRIT 44.4 % (42.0-52.0); HEMOGLOBIN 14.9 g/dl (13.5-17.5); MEAN CORPUSCULAR HEMOGLOBIN 29.7 pg (27.0-33.0); MEAN CORPUSCULAR HGB CONC 33.6 g/dl (32.0-36.5); MEAN CORPUSCULAR VOLUME 88.4 fl (80.0-96.0); PLATELET COUNT, AUTOMATED 285 10^3/uL (150-450); RED BLOOD COUNT 5.02 10^6/uL (4.30-6.10)
[2018-08-24 01:38] LABS: WHITE BLOOD COUNT 18.8 10^3/uL (4.0-10.0)
[2018-08-24] MEDS ORDERED: IMOD2CAP PO (01:43)
[2018-08-24] MEDS ORDERED: HUMI40KI SC (01:43)
[2018-08-24] MEDS ORDERED: FURO20TA2 PO ×2 (01:43→05:44)
[2018-08-24] MEDS ORDERED: ONDANSETRON 4MG/2ML VIAL (J2405) IV ONE ×2 (01:45→06:00)
[2018-08-24] MEDS: NS 1,000 ML IV SCH ×2 (01:54→08:16)
[2018-08-24 02:05] LABS: ALT/SGPT 19 U/L (12-78); BILIRUBIN,DIRECT 0.2 MG/DL (0.0-0.2); BILIRUBIN,TOTAL 0.6 MG/DL (0.2-1.0); BLOOD UREA NITROGEN 18 MG/DL (7-18); CALCIUM LEVEL 8.9 MG/DL (8.8-10.2); CARBON DIOXIDE LEVEL 27 MEQ/L (21-32); CHLORIDE LEVEL 97 MEQ/L (98-107); CREATININE FOR GFR 1.03 MG/DL (0.70-1.30); GLOMERULAR FILTRATION RATE > 60.0 (>35); GLUCOSE, FASTING 104 MG/DL (70-100); LIPASE 71 U/L (73-393); POTASSIUM SERUM 3.7 MEQ/L (3.5-5.1); SODIUM LEVEL 134 MEQ/L (136-145); TOTAL PROTEIN 7.3 GM/DL (6.4-8.2)
[2018-08-24 02:20] LABS: ATYPICAL LYMPH 6 % (0-5); LYMPHOCYTES 23 % (16-52); MONOCYTES 6 % (0-8); NEUTROPHILS 65 % (35-75); PLATELET ESTIMATE NORMAL (NORMAL)
[2018-08-24] MEDS: GASTROGRAFIN SOLUTION 30ML PO SCH ×2 (02:45→03:15)
[2018-08-24] MEDS ORDERED: ISOVUE-370 76% 100ML VIAL (Q9967) As Ordered ONE (04:11)
--- NOTE | 2018-08-24 05:08 | REPVR ---
EXAM: CT Abdomen and Pelvis With Contrast EXAM DATE/TIME: 08/24/2018 2:18 AM CLINICAL HISTORY: 83 years old, male; Pain; Abdominal pain; Generalized; Additional info: Abd pain, vomiting TECHNIQUE: Axial computed tomography images of the abdomen and pelvis with intravenous contrast. All CT scans at this facility use at least one of these dose optimization techniques: automated exposure control; mA and/or kV adjustment per patient size (includes targeted exams where dose is matched to clinical indication); or iterative reconstruction. Coronal and sagittal reformatted images were created and reviewed. CONTRAST: 100 ml of iso administered intravenously. COMPARISON: CT ABD PELVIS W/O FOL BY WIT 11/18/2016 5:07 PM FINDINGS: Lower thorax: Minimal bibasilar bullous change with interstitial prominence and patchy infiltrates in the right middle lobe, lingula and to a lesser degree left lower lobe. Minimal hiatal hernia. ABDOMEN: Liver: Normal. No mass. Gallbladder and bile ducts: Status post cholecystectomy. Mild biliary dilation which is attributed to prior cholecystectomy and is likely physiologic. The CBD measures 12 mm with tapering to the ampulla. Pancreas: Normal. No ductal dilation. Spleen: Multiple splenic calcifications. Adrenals: Right adrenal nodule measuring 2.4 x 2.0 x 1.7 cm. Kidneys and ureters: There are bilateral renal cysts measuring up to 4.2 cm on the left. Stomach and bowel: Mildly distended small bowel with collapsed distal ileum consistent with small bowel obstruction. There is a point of transition a midline just above the umbilicus and adjacent to the peritoneal surface on series 201, image #80 and series 203, image #70. Distal sigmoid anastomosis. Much of the colon is collapsed. There is question of slight wall thickening in the left colon. Appendix: There are no changes of appendicitis. A normal appendix is not seen. PELVIS: Bladder: Unremarkable as visualized. Reproductive: Unremarkable as visualized. ABDOMEN and PELVIS: Intraperitoneal space: Normal. No free air. No significant fluid collection. Bones/joints: Bilateral hip prostheses. Mild anterior wedge configuration of T12 which appears to be chronic. Soft tissues: Unremarkable. Vasculature: There is moderate atherosclerotic calcification of the abdominal aorta with extension into the iliac arteries with question of some mural ulceration. There is slight ectasia measuring up to 3.2 cm. Lymph nodes: Normal. No enlarged lymph nodes. IMPRESSION: 1. Small bowel obstruction with an abrupt point of transition in the anterior abdomen adjacent to the peritoneum near midline just above the umbilicus and is new since 11/18/2016. Findings likely reflect an adhesion. 2. Old granulomatous disease of the spleen. 3. Minimal bibasilar bullous change with interstitial prominence and patchy infiltrates right middle lobe, lingula and left lower lobe and may reflect pneumonia which is new since the prior study. 4. Status post cholecystectomy. 5. Right adrenal nodule which is essentially unchanged. 6. Question of minimal nonspecific left colitis, greatest distally. Electronically signed by: Atilio Yeung On 08/24/2018 05:07:41 AM
[2018-08-24] MEDS ORDERED: cefTRIAXone SOD 1 GM in D5W MINI-BAG PLUS 50 ML IV ONE (05:30)
[2018-08-24] MEDS ORDERED: ASPI81TAEC PO (05:44)
[2018-08-24] MEDS ORDERED: IMOD2TAB16 PO (05:44)
[2018-08-24] MEDS ORDERED: PRED20TA PO (05:44)
[2018-08-24] MEDS ORDERED: AZITHROMYCIN INJ 500 MG, VIAL MATE ADAPTER 1 EACH in D5W 250 ML IV ONE (05:45)
[2018-08-24] MEDS ORDERED: ACETAMINOPHEN 650 MG SUPP PR PRN (06:30)
[2018-08-24] MEDS ORDERED: ONDANSETRON 4MG/2ML VIAL (J2405) IV PRN (06:30)
[2018-08-24] MEDS ORDERED: IPRATROPIUM 0.5MG/ALBUTEROL 2.5MG INH SOL UD 3ML (DUONEB)(J7620) NEB PRN (06:45)
[2018-08-24 07:45] VITALS: BP 138/67
--- NOTE | 2018-08-24 07:45 | CR ---
DATE OF CONSULTATION: 08/24/2018 This is an 83-year-old white male with a history of inflammatory bowel disease (ulcerative colitis). He presents to the emergency room with 2 days of nausea and vomiting. He has been diagnosed with a bowel obstruction in the emergency room. He has a history of same with prior surgery for same in the past. He is being admitted to the surgical service and we are seeing him in consultation for medical management and optimization. He does have a history of coronary artery disease and follows with cardiology. His judo teacher is Dr. Calvin. He follows with him very closely. He has a history of remote [place] and cardiac catheterization with stent in early . He is very active for his age. She walks every day with his walker. He walks about a mile a day. On days when he cannot get outside, he rides an exercise bike. He does not complain any of any chest pain or shortness of breath. His electrocardiogram is unremarkable except for PVCs. Of note, he is on chronic prednisone for his inflammatory bowel disease. He takes 20 mg of prednisone a day. He has had two hip fractures which I believe are a complication of osteoporosis and his bone health needs to be addressed more aggressively. He currently is n.p.o.. 40 mg of prednisone equates to about 80 mg of hydrocortisone a day. We are putting him on hydrocortisone at 50 mg IV every 8 hours and he will need a stress dose of 100 mg president/gm production & live experiences for the OR. He is maintained on a beta sumi and of course this will be continued with his history of coronary artery disease. He also has a history of B-cell lymphoma which is treated by others. This is apparently in remission. His CBC is unremarkable. Lastly he is also on Humira. His last dose of Humira was at the last of July, and he would not be due for another week or so on this. This will be held until after his surgery. The other issue is possible aspiration pneumonia related to his vomiting. He did have a CT which suggests infiltration of right middle lobe, lingula and left lower lobe. He has been started on IV antibiotics in the ER for this. Of note, he wears an upper denture and has no lower teeth. Coverage should include that for oral anaerobes. MEDICATIONS: He is on: - aspirin 81 mg - atenolol 50 mg - Humira - prednisone 20 mg a day - He has been started on IV and will continue on ceftriaxone as discussed above. ALLERGIES: No known allergies. PAST MEDICAL HISTORY: Ulcerative colitis with previous bowel obstruction and resection of segment of bowel. Cholecystectomy. Appendectomy. Two hip fractures. Hyperlipidemia. Coronary artery disease. B-cell lymphoma in remission. Chronic prednisone therapy. Immunosuppression also secondary to chronic Humira therapy. FAMILY HISTORY: Irrelevant at this patient's advanced age. SOCIAL HISTORY: He smoked until 1991. He smoked a pack a day. Has an occasional alcohol. Lives alone. Daughter is with him here this morning. She collaborates his history. REVIEW OF SYSTEMS: General: No constitutional symptoms. No fever. HEENT: Is negative. Dentures as discussed. Cardiopulmonary: He has no pulmonary complaints at present. His x-rays are suggestive of pneumonia as discussed. His O2 sats are in the mid 90s on room air. GI: Nausea and vomiting as noted. : Negative. Musculoskeletal: Negative. Vascular: He has chronic dependent edema. Hematologic: History of lymphoma but CBC on admission looks within normal limits. PHYSICAL EXAMINATION: Blood pressure is 143/76, pulse is 94, respirations are 16. Temperature is afebrile. General appearance: Elderly male. He looks his stated age. He is alert and oriented. He tries to exercise daily as discussed above. He does use a walker when walking. HEENT: Is remarkable only for the absence of teeth. He does wear an upper denture. Nasogastric tube is in place. Neck is supple. Carotids are normal. No bruits. No JVD. Heart: Was regular with distant tones. Chest is clear to auscultation. Abdomen: Slightly distended, tympanitic. Mildly tender to deep palpation. Abdomen is obese. Extremities: He has got some pitting edema distally lower extremities which is chronic and for which he has been on chronic diuretics. Diuretics are currently on hold. IMPRESSION/PLAN: Preop optimization: 1. The patient is on chronic steroids. They are addressed as discussed above under history of present illness. He is currently on hydrocortisone 50 mg every 8 hours and should receive 100 mg IV president/gm production & live experiences to the OR when it is decided by Dr. Garrido that it is safe to proceed. 2. Cardiovascular risk is intermediate. It is above 1% given the possibility of complications. The patient already has radiographic evidence of pneumonia and his chronic treatment for his inflammatory bowel disease may improve wound healing, etc.. 3. Coronary artery disease, asymptomatic. Sees Dr. Calvin regularly. Does participate in a regular exercise program. His aspirin is on hold. Will continue his beta-sumi. 4. Dependent edema. Diuretic on hold. Patient currently is receiving IV fluids. 5. Hyperlipidemia, for now his statin is on hold as he is n.p.o. and has an NG. The atenolol will be given down his NG tube. 6. History of B-cell lymphoma in remission. 7. Osteoporosis with prior hip fractures. He should be on a bisphosphonate if he does not have any upper GI contraindications for same. 8. PVCs on EKG, otherwise EKG is normal.
--- NOTE | 2018-08-24 08:05 | REP ---
Clinical: Nasogastric tube placement. Comparison: 03/22/2018. Findings: Mediastinum and cardiac silhouette are stable. A nasogastric tube is identified extending into the left upper quadrant but the sideport may be above the level of the diaphragm and advancement should be considered. Lung case demonstrate diffuse chronic-appearing interstitial changes. No pneumothorax. Skeletal structures stable. Impression: 1. Nasogastric tube extends into the left upper quadrant but advancement may be considered as the side port may be above the level of the diaphragm. 2. Lung case are unchanged. The Electronically Signed by Harjinder Caruso MD 08/24/2018 07:56 A
[2018-08-24] MEDS: PANTOPRAZOLE 40MG INJ (PROTONIX) (C9113) IV SCH (09:19)
[2018-08-24] MEDS: HYDROCORTISONE 100 MG/2 ML VIAL (J1720) IV SCH ×3 (09:19→20:31)
[2018-08-24] MEDS: ENOXAPARIN 40 MG/0.4 ML SYRINGE (J1650) SC SCH (09:20)
[2018-08-24] MEDS: ATENOLOL 25 MG TAB PO SCH (09:20)
[2018-08-24] MEDS ORDERED: KETOROLAC 30 MG/ML VIAL (J1885) IV PRN (10:15)
[2018-08-24] MEDS: KCL 20MEQ IN D5/0.45NS 1000ML 1,000 ML IV SCH ×2 (10:25→18:10)
[2018-08-24 14:00] VITALS: BP 128/67
--- NOTE | 2018-08-24 16:35 | HPE ---
DATE OF ADMISSION: 08/24/2018 CHIEF COMPLAINT: Abdominal pain. HISTORY OF PRESENT ILLNESS The patient is an 83-year-old male with a history of inflammatory bowel disease likely ulcerative colitis. He has been under the care of Dr. Carrillo, has been treating him outpatient with steroids and Humira. He has had difficulty with diarrhea and crampy abdominal pains in the past. No problems with any blood in his stools. No nausea, vomiting. No fevers or chills. He came into the emergency room because for the past week or so he started to have increasing abdominal pain and abdominal distension. He appears to be slightly confused. He is unsure of exactly how long his symptoms have been going on, exactly what his symptoms are but he does claim that he has had some nausea and vomiting over the last few days. There is a midline incision on his abdomen, but he is not sure what it was from or what they did, but from the chart it does appear as though he has had a bowel resection before. That was confirmed by Dr. Carrillo's colonoscopy report showing a visible anastomosis. The rest of the patient's history was obtained from the chart. PAST MEDICAL HISTORY Ulcerative colitis. Hyperlipidemia. Coronary artery disease. B cell lymphoma. PAST SURGICAL HISTORY Hip repairs bilaterally. Cholecystectomy. Sigmoid resection. Appendectomy. ALLERGIES: None. HOME MEDICATIONS: Please see med record. FAMILY HISTORY: Noncontributory. SOCIAL HISTORY: Denies drug, alcohol, or tobacco abuse. REVIEW OF SYSTEMS Difficult to obtain at this time, but he does complain mainly of abdominal pain. PHYSICAL EXAMINATION General: Patient is awake and alert. Temperature 99, pulse 69, respiration 20, blood pressure 138/67, pulse ox 95% on room air. HEENT: Pupils equal round and react to light and accommodation. Heart: S1, S2 regular rate and rhythm. Lungs: Clear to auscultation bilaterally. Abdomen: Soft, no palpable ventral hernias. Extremities: No clubbing, cyanosis or edema. LABORATORY DATA White count 18.8, hemoglobin 14.9, platelets 285, potassium 3.7, creatinine 1.03, lactic acid 2.2. IMAGING STUDIES CT abdomen and pelvis shows small bowel obstruction with an abrupt point of transition anterior abdomen adjacent to the peritoneum near the midline just of the umbilicus. Granulomatous disease of the spleen. Mild bibasilar bullous changes with interstitial prominence and patchy infiltrates right middle lobe, lingula and left lower lobe. May reflect pneumonia which new from prior study. Right adrenal nodule that is unchanged, mild left-sided colitis. ASSESSMENT/PLAN The patient is an 83-year-old male, history of ulcerative colitis who has had increase in abdominal pain and some nausea, presents with signs of small bowel obstruction near the anterior abdominal wall, likely secondary to adhesions from prior surgery. Abdomen: Soft, nontender, currently. No signs of any peritonitis. Labs and vitals are stable. Plan is to treat him medically at this point with NG tube decompression, antibiotics, IV fluids and bowel rest. Will monitor him for at least 72 hours. As long as he shows progress we will continue on that course. If the patient starts to show any signs of decompensation then we will plan to do an urgent exploratory operation to diagnose and fix the problem. Plan was discussed in detail with him. He verbalizes understanding. Once I see his daughter I will discuss it with her as well.
--- NOTE | 2018-08-24 20:18 | ECGEPIP ---
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
[2018-08-24 22:00] VITALS: BP 132/62
[2018-08-25] MEDS: KCL 20MEQ IN D5/0.45NS 1000ML 1,000 ML IV SCH ×3 (02:05→17:52)
[2018-08-25] MEDS: cefTRIAXone SOD 1 GM in D5W MINI-BAG PLUS 50 ML IV SCH (05:17)
[2018-08-25 05:28] LABS: HEMATOCRIT 37.8 % (42.0-52.0); MEAN CORPUSCULAR HEMOGLOBIN 29.3 pg (27.0-33.0); MEAN CORPUSCULAR HGB CONC 32.8 g/dl (32.0-36.5); MEAN CORPUSCULAR VOLUME 89.4 fl (80.0-96.0); PLATELET COUNT, AUTOMATED 205 10^3/uL (150-450); RED BLOOD COUNT 4.23 10^6/uL (4.30-6.10); WHITE BLOOD COUNT 13.5 10^3/uL (4.0-10.0)
[2018-08-25 05:33] LABS: HEMOGLOBIN 12.4 g/dl (13.5-17.5)
[2018-08-25 05:47] LABS: BLOOD UREA NITROGEN 14 MG/DL (7-18); CALCIUM LEVEL 8.2 MG/DL (8.8-10.2); CARBON DIOXIDE LEVEL 29 MEQ/L (21-32); CHLORIDE LEVEL 103 MEQ/L (98-107); CREATININE FOR GFR 0.86 MG/DL (0.70-1.30); GLOMERULAR FILTRATION RATE > 60.0 (>35); GLUCOSE, FASTING 106 MG/DL (70-100); POTASSIUM SERUM 4.2 MEQ/L (3.5-5.1); SODIUM LEVEL 138 MEQ/L (136-145)
[2018-08-25 06:00] VITALS: BP 130/61
[2018-08-25] MEDS: HYDROCORTISONE 100 MG/2 ML VIAL (J1720) IV SCH ×3 (08:07→20:16)
[2018-08-25] MEDS: ATENOLOL 25 MG TAB PO SCH (08:07)
[2018-08-25] MEDS: ENOXAPARIN 40 MG/0.4 ML SYRINGE (J1650) SC SCH (08:07)
[2018-08-25] MEDS: PANTOPRAZOLE 40MG INJ (PROTONIX) (C9113) IV SCH (08:07)
--- NOTE | 2018-08-25 09:36 | IPNPDOC ---
Text Note Date of Service The patient was seen on 08/25/18. NOTE No acute events overnight. Denies any nausea, emesis, fevers, or abd pains. He is not passing any flatus, or BM yet. VSSAF Uop - 1575 NG - 1050 NAD abd - soft, nd, NT labs - below wbc - 18.8>13.5 A) 83y/o male with SBO likely secondary to adhesions P) NPO abx ambulate NGT to LIS await return of bowel function. If no improvement in a couple more days, then he will likely need surgery. Branden Garrido DO VS,Ysabel, I+O VS, Ysabel, I+O Laboratory Tests 08/25/18 04:59 Red Blood Count 4.23 L, Mean Corpuscular Volume 89.4, Mean Corpuscular Hemoglobin 29.3, Mean Corpuscular Hemoglobin Concent 32.8, Red Cell Distribution Width 14.5, Calcium Level 8.2 L Vital Signs Date Time Temp Pulse Resp B/P (MAP) Pulse Ox O2 Delivery O2 Flow Rate FiO2 08/25/18 08:07 61 156/72 08/25/18 06:00 98.1 19 95 Room Air I&O- Last 24 Hours up to 6 AM 08/25/18 06:00 Intake Total 3192.5 ml Output Total 3125 ml Balance 67.5 ml DEANA GARRIDO DO Aug 25, 2018 09:36
[2018-08-25 14:00] VITALS: BP 123/70
--- NOTE | 2018-08-25 18:55 | IPN ---
DATE: 08/25/2018 SUBJECTIVE: The patient is seen and examined in the room today. Patient denies any acute distress. Patient denies any abdominal pain; however, the patient still has not had any bowel movements. Abdomen is nontender to palpation. Denies any fever or chills. Patient stated nasogastric (NG) tube is causing some discomfort, but he has been able to tolerate the discomfort. OBJECTIVE: VITAL SIGNS: Temperature is 98.1, pulse is 62, respirations 19, blood pressure 130/61, pulse oximetry is 95% in room air. GENERAL: No sign of acute distress. Patient is alert and awake, oriented. HEENT: Normocephalic, atraumatic. Extraocular motor grossly intact. CARDIOVASCULAR: Positive S1, S2, regular rate. LUNGS: Clear to auscultation bilaterally. ABDOMEN: Soft but decreased bowel sounds. Nontender. LABORATORY DATA: WBC 13.5, hemoglobin 12.4, hematocrit 37.8, platelet count is 205. Sodium is 138, potassium 4.2, chloride 103, carbon dioxide 29, BUN 14, creatinine 0.86, GFR greater than 60, fasting glucose 106, lactic acid 1.7, calcium 8.2. Microbiology: Blood culture preliminary showed no growth after 24 hours. ASSESSMENT AND PLAN: 1. Small bowel obstruction secondary to abdominal adhesions. Currently the patient is nothing by mouth (n.p.o.), NG tube in place. 2. Inflammatory bowel disease. On chronic steroids. 3. History of coronary artery disease. On atenolol. Patient is currently nothing by mouth, aspirin and atorvastatin on hold. 4. History of B-cell lymphoma, in remission. On HUMIRA, which is on hold. 5. Patchy infiltrate in the right middle lobe, lingula, and left lower lobe. May suggest pneumonia. Patient is currently on antibiotics. 6. Dyslipidemia. Atorvastatin on hold. 7. Osteoporosis with a history of hip fracture. 8. Deep vein thrombosis (DVT) prophylaxis. On Lovenox.
[2018-08-25 22:00] VITALS: BP 133/71
[2018-08-26] MEDS: KCL 20MEQ IN D5/0.45NS 1000ML 1,000 ML IV SCH ×3 (01:40→18:04)
[2018-08-26] MEDS: cefTRIAXone SOD 1 GM in D5W MINI-BAG PLUS 50 ML IV SCH (05:10)
[2018-08-26 05:58] LABS: HEMATOCRIT 37.1 % (42.0-52.0); HEMOGLOBIN 12.3 g/dl (13.5-17.5); MEAN CORPUSCULAR HEMOGLOBIN 29.6 pg (27.0-33.0); MEAN CORPUSCULAR HGB CONC 33.2 g/dl (32.0-36.5); MEAN CORPUSCULAR VOLUME 89.2 fl (80.0-96.0); PLATELET COUNT, AUTOMATED 186 10^3/uL (150-450); RED BLOOD COUNT 4.16 10^6/uL (4.30-6.10); WHITE BLOOD COUNT 10.8 10^3/uL (4.0-10.0)
[2018-08-26 06:00] VITALS: BP 146/68
[2018-08-26 06:27] LABS: BLOOD UREA NITROGEN 13 MG/DL (7-18); CALCIUM LEVEL 8.1 MG/DL (8.8-10.2); CARBON DIOXIDE LEVEL 27 MEQ/L (21-32); CHLORIDE LEVEL 109 MEQ/L (98-107); CREATININE FOR GFR 0.69 MG/DL (0.70-1.30); GLOMERULAR FILTRATION RATE > 60.0 (>35); GLUCOSE, FASTING 109 MG/DL (70-100); POTASSIUM SERUM 4.4 MEQ/L (3.5-5.1); SODIUM LEVEL 143 MEQ/L (136-145)
[2018-08-26] MEDS: ENOXAPARIN 40 MG/0.4 ML SYRINGE (J1650) SC SCH (08:39)
[2018-08-26] MEDS: HYDROCORTISONE 100 MG/2 ML VIAL (J1720) IV SCH ×3 (08:39→20:19)
[2018-08-26] MEDS: PANTOPRAZOLE 40MG INJ (PROTONIX) (C9113) IV SCH (08:39)
[2018-08-26 08:52] VITALS: BP 122/80
[2018-08-26 08:53] VITALS: BP 122/80
[2018-08-26] MEDS: ATENOLOL 25 MG TAB PO SCH (08:53)
--- NOTE | 2018-08-26 10:49 | IPNPDOC ---
Text Note Date of Service The patient was seen on 08/26/18. NOTE No acute events overnight. Denies any nausea, emesis, fevers, or abd pains. He is not passing any flatus, or BM yet. However, I am not sure if he is reliable with his history. VSSAF NAD abd - soft, nd, NT labs - below A) 83y/o male with SBO likely secondary to adhesions P) abx ambulate await return of bowel function. He is not completely reliable with his history, so I plan to clamp the NGT this am, and try clq. The nurse is aware, and will place the NGT back to suction if he develops any nausea or emesis. If no improvement over the weekend, then he will likely need an exploratory surgery on Wednesday. Branden Garrido DO VS,Ysabel, I+O VS, Fishshiraze, I+O Laboratory Tests 08/26/18 05:13 Red Blood Count 4.16 L, Mean Corpuscular Volume 89.2, Mean Corpuscular Hemoglobin 29.6, Mean Corpuscular Hemoglobin Concent 33.2, Red Cell Distribution Width 14.3, Calcium Level 8.1 L Vital Signs Date Time Temp Pulse Resp B/P (MAP) Pulse Ox O2 Delivery O2 Flow Rate FiO2 08/26/18 08:53 44 122/80 08/26/18 06:00 97.4 18 97 Room Air I&O- Last 24 Hours up to 6 AM 08/26/18 05:59 Intake Total 3800 ml Output Total 1750 ml Balance 2050 ml DEANA GARRIDO DO Aug 26, 2018 10:49
[2018-08-26 14:00] VITALS: BP 144/78
--- NOTE | 2018-08-26 17:46 | IPNPDOC ---
Text Note Date of Service The patient was seen on 08/26/18. NOTE SUBJECTIVE: The patient is seen and examined in the room today. Patient still denies abdominal pain. No bowel movement. No fever or chill. OBJECTIVE: VITAL SIGNS: Listed below. GENERAL: No sign of acute distress. Patient is alert and awake, oriented. HEENT: Normocephalic, atraumatic. Extraocular motor grossly intact. CARDIOVASCULAR: Positive S1, S2, regular rate. LUNGS: Clear to auscultation bilaterally. ABDOMEN: Soft but decreased bowel sounds. Nontender. EXTREMITY: No edema. LABORATORY DATA: Listed below. Microbiology: Blood culture preliminary showed no growth after 48 hours. ASSESSMENT AND PLAN: #. Small bowel obstruction secondary to abdominal adhesions. - Currently the patient is clear liquid diet. NG tube is clamped. #. Inflammatory bowel disease. On chronic steroids. #. Patchy infiltrate in the right middle lobe, lingula, and left lower lobe. - May suggest pneumonia. Patient is currently on antibiotics. #. History of coronary artery disease. On atenolol. On atorvastatin. #. History of B-cell lymphoma, in remission. HUMIRA is on hold. #. Dyslipidemia. On Atorvastatin. #. Osteoporosis with a history of hip fracture. #. Deep vein thrombosis (DVT) prophylaxis. On Lovenox. VS,Fishbone, I+O VS, Fishbone, I+O Laboratory Tests 08/26/18 05:13 Red Blood Count 4.16 L, Mean Corpuscular Volume 89.2, Mean Corpuscular Hemoglobin 29.6, Mean Corpuscular Hemoglobin Concent 33.2, Red Cell Distribution Width 14.3, Calcium Level 8.1 L Vital Signs Date Time Temp Pulse Resp B/P (MAP) Pulse Ox O2 Delivery O2 Flow Rate FiO2 08/26/18 14:00 97.7 58 17 144/78 (100) 97 Room Air I&O- Last 24 Hours up to 6 AM 08/26/18 05:59 Intake Total 3800 ml Output Total 1750 ml Balance 2050 ml MARIAM POSADAS DO Aug 26, 2018 17:46
[2018-08-26] MEDS ORDERED: PRAVASTATIN 20 MG TAB PO SCH (21:00)
[2018-08-26 22:00] VITALS: BP 158/83
[2018-08-27] MEDS: KCL 20MEQ IN D5/0.45NS 1000ML 1,000 ML IV SCH ×2 (00:46→10:22)
[2018-08-27] MEDS: cefTRIAXone SOD 1 GM in D5W MINI-BAG PLUS 50 ML IV SCH (05:15)
[2018-08-27 06:00] VITALS: BP 125/70
[2018-08-27 06:08] VITALS: BP 144/67
[2018-08-27] MEDS ORDERED: HALOPERIDOL 5 MG/ML VIAL (J1630) IV PRN (06:15)
[2018-08-27 08:10] LABS: HEMATOCRIT 34.7 % (42.0-52.0); HEMOGLOBIN 11.6 g/dl (13.5-17.5); MEAN CORPUSCULAR HEMOGLOBIN 29.7 pg (27.0-33.0); MEAN CORPUSCULAR HGB CONC 33.4 g/dl (32.0-36.5); MEAN CORPUSCULAR VOLUME 88.7 fl (80.0-96.0); PLATELET COUNT, AUTOMATED 174 10^3/uL (150-450); RED BLOOD COUNT 3.91 10^6/uL (4.30-6.10); WHITE BLOOD COUNT 9.1 10^3/uL (4.0-10.0)
[2018-08-27] MEDS: PANTOPRAZOLE 40MG INJ (PROTONIX) (C9113) IV SCH (08:32)
[2018-08-27] MEDS: HYDROCORTISONE 100 MG/2 ML VIAL (J1720) IV SCH (08:33)
[2018-08-27] MEDS: ENOXAPARIN 40 MG/0.4 ML SYRINGE (J1650) SC SCH (08:33)
[2018-08-27 08:35] LABS: BLOOD UREA NITROGEN 10 MG/DL (7-18); CARBON DIOXIDE LEVEL 25 MEQ/L (21-32); CHLORIDE LEVEL 111 MEQ/L (98-107); CREATININE FOR GFR 0.71 MG/DL (0.70-1.30); GLOMERULAR FILTRATION RATE > 60.0 (>35); GLUCOSE, FASTING 87 MG/DL (70-100); MAGNESIUM LEVEL 1.9 MG/DL (1.8-2.4); POTASSIUM SERUM 4.1 MEQ/L (3.5-5.1); SODIUM LEVEL 143 MEQ/L (136-145)
[2018-08-27] MEDS ORDERED: ATENOLOL 12.5MG PER 1/2 TABLET PO SCH (09:00)
[2018-08-27 14:00] VITALS: BP 153/73
[2018-08-27] MEDS ORDERED: CEFD300CAP PO (16:14)
--- NOTE | 2018-08-27 16:24 | IPNPDOC ---
Text Note Date of Service The patient was seen on 08/27/18. NOTE SUBJECTIVE: The patient is seen and examined in the room today. Patient had bowel movements since yesterday night. No abdominal pain. No fever or chill. OBJECTIVE: VITAL SIGNS: Listed below. GENERAL: No sign of acute distress. Patient is alert and awake. HEENT: Normocephalic, atraumatic. Extraocular motor grossly intact. CARDIOVASCULAR: Positive S1, S2, regular rate. LUNGS: Clear to auscultation bilaterally. ABDOMEN: Soft but decreased bowel sounds. Nontender. EXTREMITY: No edema. LABORATORY DATA: Listed below. Microbiology: Blood culture preliminary showed no growth after 72 hours. ASSESSMENT AND PLAN: #. Small bowel obstruction secondary to abdominal adhesions. - Patient starts having bowel movements since yesterday night. On regular diet now. Patient is being discharged by surgery team. Discharge medications reviewed. #. Patchy infiltrate in the right middle lobe, lingula, and left lower lobe. - May suggest pneumonia. Patient is currently on antibiotic. - Antibiotic adjusted to PO. #. Inflammatory bowel disease. On chronic steroids. # Bradycardia - Patient was taking betablocker previously. Atenolol is discontinued. #. History of coronary artery disease. On atorvastatin. #. History of B-cell lymphoma, in remission. HUMIRA is on hold. #. Dyslipidemia. On Atorvastatin. #. Osteoporosis with a history of hip fracture. Disposition: Patient is discharged today. Recommend following up with PCP in 1 wk. Recommend finishing course of antibiotic. VS,Fishbone, I+O VS,Fishbone, I+O VS, Fishbone, I+O Laboratory Tests 08/27/18 07:50 Red Blood Count 3.91 L, Mean Corpuscular Volume 88.7, Mean Corpuscular Hemoglobin 29.7, Mean Corpuscular Hemoglobin Concent 33.4, Red Cell Distribution Width 14.3, Calcium Level 8.0 L Vital Signs Date Time Temp Pulse Resp B/P (MAP) Pulse Ox O2 Delivery O2 Flow Rate FiO2 08/27/18 14:00 97.4 60 17 153/73 (99) 96 Room Air I&O- Last 24 Hours up to 6 AM 08/27/18 06:00 Intake Total 2685 ml Output Total 575 ml Balance 2110 ml MARIAM POSADAS DO Aug 27, 2018 16:24
[2018-08-27] MEDS ORDERED: CEFDINIR 300 MG CAP (OMNICEF) PO SCH (21:00)
--- NOTE | 2018-08-29 10:18 | DSES ---
DATE OF ADMISSION: 08/24/2018 DATE OF DISCHARGE: ADMISSION DIAGNOSIS: Small bowel obstruction likely secondary to adhesions. DISCHARGE DIAGNOSIS: Small bowel obstruction likely secondary to adhesions. HOSPITAL COURSE: The patient 83-year-old male Dictation ended
--- NOTE | 2018-08-29 10:58 | DSES ---
DATE OF ADMISSION: 08/24/2018 DATE OF DISCHARGE: 08/27/2018 ADMISSION DIAGNOSIS: Small-bowel obstruction secondary to adhesions. DISCHARGE DIAGNOSIS: Small-bowel obstruction secondary to adhesions. HOSPITAL COURSE: The patient is an 83-year-old male who presented on the second with nausea, vomiting and abdominal pains. He had an NG tube and IV fluids started in the emergency room after a CAT scan revealed a high-grade small bowel obstruction with transition zone in the mid abdomen. He decompressed quickly with the NG tube. His abdominal pain resolved. The nausea and vomiting resolved. His NG tube output dropped off drastically on the third and the . On the afternoon of the , his NG was clamped and he was started on a clear liquid diet. He has had multiple bowel movements. The NG tube was removed. He was advanced to a regular diet. By the afternoon on the , he was discharged home without any complications.
== END 2018-08-27 17:08 | disposition home or self-care (01) | DRG 388 ==
LOC: M ED 00:32 → M ED INP 06:07 → M MSPAV 07:53
PROVIDERS: ATTEND Surgery
DX: K56.50 Intestinal adhesions [bands], unspecified as to partial versus complete obstruction (principal); J18.9 Pneumonia, unspecified organism; C85.10 Unspecified B-cell lymphoma, unspecified site; E78.5 Hyperlipidemia, unspecified; I25.10 Atherosclerotic heart disease of native coronary artery without angina pectoris; M81.0 Age-related osteoporosis without current pathological fracture

== ENCOUNTER 2018-08-28 21:09 | Inpatient (IN) | payer MEDICARE ==
[~2018-08-28] VITALS: Ht 190.5 cm; Wt 89.1 kg
[~2018-08-28 21:09] MED LIST changes: +ASPI81TAEC PO; +CEFD300CAP PO; +FURO20TA2 PO; +HUMI40KI SC; +IMOD2CAP PO; +IMOD2TAB16 PO; +MILK120011 PO; -MILK12002 PO
[2018-08-28] MEDS ORDERED: METOCLOPRAMIDE INJ 10MG/2ML VIAL (J2765) IV ONE (22:00)
[2018-08-28] MEDS ORDERED: NS 500 ML IV ONE (22:00)
[2018-08-28 22:12] LABS: BASO % 0.2 % (0.0-1.0); HEMATOCRIT 39.3 % (42.0-52.0); HEMOGLOBIN 13.3 g/dl (13.5-17.5); LYMPH # 1.6 10^3/uL (1.5-4.5); LYMPH % 14.2 % (24.0-44.0); MEAN CORPUSCULAR HEMOGLOBIN 29.7 pg (27.0-33.0); MEAN CORPUSCULAR HGB CONC 33.8 g/dl (32.0-36.5); MEAN CORPUSCULAR VOLUME 87.7 fl (80.0-96.0); MONO # 0.9 10^3/uL (0.0-0.8); MONO % 7.4 % (0.0-5.0); NEUTROPHILS # 8.9 10^3/uL (1.8-7.7); NEUTROPHILS % 77.2 % (36.0-66.0); PLATELET COUNT, AUTOMATED 206 10^3/uL (150-450); RED BLOOD COUNT 4.48 10^6/uL (4.30-6.10); WHITE BLOOD COUNT 11.5 10^3/uL (4.0-10.0)
[2018-08-28 22:37] LABS: ALBUMIN 2.6 GM/DL (3.2-5.2); ALT/SGPT 26 U/L (12-78); BILIRUBIN,DIRECT 0.2 MG/DL (0.0-0.2); BILIRUBIN,TOTAL 0.8 MG/DL (0.2-1.0); BLOOD UREA NITROGEN 9 MG/DL (7-18); CALCIUM LEVEL 8.2 MG/DL (8.8-10.2); CARBON DIOXIDE LEVEL 23 MEQ/L (21-32); CHLORIDE LEVEL 104 MEQ/L (98-107); CPK CREATINE PHOSPHOKINASE 39 U/L (39-308); CREATININE FOR GFR 0.71 MG/DL (0.70-1.30); GLOMERULAR FILTRATION RATE > 60.0 (>35); GLUCOSE, FASTING 108 MG/DL (70-100); LIPASE 111 U/L (73-393); MB/CK RELATIVE INDEX 2.82 (< OR =4); POTASSIUM SERUM 4.1 MEQ/L (3.5-5.1); SODIUM LEVEL 137 MEQ/L (136-145); TOTAL PROTEIN 5.9 GM/DL (6.4-8.2); TROPONIN I 0.02 NG/ML (< 0.10)
[2018-08-28] MEDS: GASTROGRAFIN SOLUTION 30ML PO SCH ×2 (22:48→23:18)
--- NOTE | 2018-08-29 00:56 | REPVR ---
EXAM: CT Abdomen and Pelvis Without Contrast EXAM DATE/TIME: 08/28/2018 12:07 AM CLINICAL HISTORY: 83 years old, male; Pain; Abdominal pain; Additional info: Emesis S/P sbo TECHNIQUE: Axial computed tomography images of the abdomen and pelvis without contrast. All CT scans at this facility use at least one of these dose optimization techniques: automated exposure control; mA and/or kV adjustment per patient size (includes targeted exams where dose is matched to clinical indication); or iterative reconstruction. Coronal and sagittal reformatted images were created and reviewed. COMPARISON: CT ABD/PEL W/IV ORAL CONTRAS 08/24/2018 4:09 AM FINDINGS: Lower thorax: Emphysema. Mitral valve calcification. Consolidation in the lingula and left lower lobe progressed from prior study may represent pneumonia in the proper clinical setting. Small left pleural effusion. ABDOMEN: Liver: Liver granulomas. Gallbladder and bile ducts: Status post cholecystectomy. Pancreas: Normal. No ductal dilation. Spleen: Multiple splenic granulomas. Adrenals: Stable right adrenal nodule. Kidneys and ureters: Stable bilateral renal cysts. Stomach and bowel: Postsurgical changes at the rectosigmoid junction. Distended stomach, duodenum, and multiple dilated small bowel loops up to the anterior mid abdomen with decompressed distal small bowel loops similar to previous study likely representing small bowel obstruction. Appendix: Appendix is not seen. PELVIS: Bladder: Diverticulum of the bladder and the dome of the bladder measuring 10 mm. Reproductive: Unremarkable as visualized. ABDOMEN and PELVIS: Intraperitoneal space: Normal. No free air. No significant fluid collection. Bones/joints: Bilateral hip arthroplasties with intact surgical hardware. Evaluation of the pelvis is difficult secondary to streak artifact from the prosthesis. Diffuse demineralization of the bones with degenerative changes. Compression fracture of T12, chronic. Soft tissues: Unremarkable. Vasculature: Aneurysmal dilatation of the abdominal aorta measuring 2.5 x 3.3 mm. Atherosclerosis. Lymph nodes: Normal. No enlarged lymph nodes. IMPRESSION: Multiple dilated contrast-filled small bowel loops are seen in the proximal and mid small bowel with decompressed distal small bowel loops similar to previous study representing small bowel obstruction. Airspace opacities in the lingula and left base with small pleural effusion may represent pneumonia. Electronically signed by: Arlen Becerra On 08/29/2018 00:56:27 AM
[2018-08-29] MEDS ORDERED: NS 500 ML IV ONE (03:15)
[2018-08-29] MEDS ORDERED: ONDANSETRON 4MG/2ML VIAL (J2405) IV ONE (04:00)
[2018-08-29] MEDS ORDERED: MORPHINE 4 MG/ML 1ML VIAL/SYRINGE (J2270) IV ONE (04:00)
[2018-08-29] MEDS: D5W/LR 1,000 ML IV SCH ×2 (08:59→22:48)
[2018-08-29] MEDS ORDERED: PROMETHAZINE INJ 25 MG/ML VIAL (J2550) IV PRN (09:00)
[2018-08-29] MEDS ORDERED: MORPHINE 4 MG/ML 1ML VIAL/SYRINGE (J2270) IV PRN (09:00)
[2018-08-29] MEDS ORDERED: METOCLOPRAMIDE INJ 10MG/2ML VIAL (J2765) IV PRN (09:00)
[2018-08-29] MEDS ORDERED: ONDANSETRON 4MG/2ML VIAL (J2405) IV PRN (09:00)
[2018-08-29] MEDS: PANTOPRAZOLE 40MG INJ (PROTONIX) (C9113) IV SCH (10:14)
[2018-08-29 10:45] VITALS: BP 129/75
[2018-08-29 12:00] VITALS: BP 126/92
--- NOTE | 2018-08-29 18:05 | CR ---
DATE OF CONSULTATION: 08/29/2018 REFERRING PHYSICIAN: General surgery, Dr. Sanchez REASON FOR CONSULTATION: Medical management. HISTORY OF PRESENT ILLNESS: The patient is an 83-year-old gentleman with a past medical history significant for ulcerative colitis, coronary artery disease status post stent, hypertension, recent hospitalization from 08/24/2018 to 08/27/2018 for small bowel obstruction. During that hospitalization stay, patient was placed on nothing by mouth and later patient had bowel movements and patient was discharged home after tolerated oral intake. According to the patient, the patient was doing fine on the night of discharge; however, the next morning, patient started having abdominal pain and later, patient had projectile vomiting with digested food and patient has been having intermittent colicky-type of pain. Patient had another projectile vomiting around 8:00 p.m. with greenish bile; therefore, patient came to [facility] for further evaluation. In the emergency room, a CT scan of the abdomen was performed. Patient was found to have a small bowel obstruction. Patient was admitted under general surgery and hospitalist team was consulted for medical management. PAST MEDICAL HISTORY: 1. B-cell lymphoma. 2. Ulcerative colitis. 3. Hypertension. 4. Coronary artery disease status post stent. PAST SURGICAL HISTORY: 1. Cholecystectomy. 2. Appendectomy. 3. Coronary artery stent placement. ALLERGIES: No known drug allergies. SOCIAL HISTORY: No smoking. Occasional alcohol use. No recreational drug use. REVIEW OF SYSTEMS: GENERAL: Denies any fever or chills. HEENT: No vision change. No auditory changes. CARDIOVASCULAR: No chest pain. No palpitations. History of coronary artery disease. RESPIRATORY: No shortness of breath. No cough. No sputum production. GASTROINTESTINAL (GI): Intermittent colicky pain with two episodes of projectile vomiting. No diarrhea. MUSCULOSKELETAL: No muscle pain or joint pain. NEUROLOGICAL: Denies numbness or tingling. OBJECTIVE: VITAL SIGNS: Temperature 97.7, pulse 89, respirations 20, blood pressure 126/92, pulse oximetry 98% on room air. GENERAL: Mild distress. Alert and oriented times three. HEENT: Gastrostomy (G) tube in place. Normocephalic, atraumatic. CARDIOVASCULAR: Distant heart sounds. Positive S1, S2. Regular rate. LUNGS: Clear to auscultation bilaterally. No wheezes or crackles. ABDOMEN: Soft, nontender. Hypoactive bowel sounds. MUSCULOSKELETAL: No edema. NEUROLOGICAL: Sensation to fine touch grossly intact. Muscle strength 5/5. LABORATORY DATA: WBC 11.5, hemoglobin 13.3, hematocrit 39.3, platelet count 206. Sodium 137, potassium 4.1, chloride 104, carbon dioxide 23, BUN 9, creatinine 0.71, GFR greater than 60, fasting glucose 108, calcium 8.2. Total bilirubin 0.8, direct bilirubin 0.2, AST 19, ALT 26, alkaline phosphatase 72. Total creatine kinase (CK) 39. Troponin-I 0.02 Total protein 5.9, albumin 2.6, lipase 111. IMAGING STUDIES: CT of the abdomen and pelvis with oral contrast demonstrates multiple dilated contrast filled small bowel loops in the proximal and mid small bowel with decompressed distal small bowel loops, representing small bowel obstruction, air space opacity in the lingular and left base with small pleural effusions. ASSESSMENT AND PLAN: 1. Small bowel obstruction. Patient is currently nothing by mouth. Patient may possibly go to the operating room (OR) on 08/31/2018 or 09/01/2018. Refer to the schedule of surgical team. Patient is an intermediate cardiac risk. EKG was performed 08/24/2018. EKG showed sinus rhythm with occasional premature ventricular contractions (PVCs). Patient has been taking chronic steroids for his ulcerative colitis. Will compare all patient's oral medications to intravenous (IV) medications. Prior to surgery, patient may need a stress dose of steroids. 2. History of coronary artery disease. Previously, due to bradycardia, atenolol was on hold. Patient has not been taking atenolol since 08/25/2018. Aspirin on hold, statin on hold in preparation for this upcoming surgery. 3. B-cell lymphoma. At baseline, patient is taking Humira. It will be on hold. 4. Pneumonia. Imaging study demonstrates air space opacity in the lingula in the left base with a small pleural effusion. Patient on Rocephin and azithromycin. Follow with sputum cultures. 5. History of dependent dementia. Patient was on diuretic. Patient is nothing by mouth. IV fluids. Lasix will be on hold. Continue monitoring fluid status. Will use IV diuretic if needed. 6. Dyslipidemia. Statin on hold. Patient is nothing by mouth. 7. Deep venous thrombosis (DVT) prophylaxis. Patient on sequential compressions. We will continue to optimize the patient medically. Patient may require a stress dose of steroids prior to surgery. Continue current regimen.
--- NOTE | 2018-08-29 18:44 | REP ---
CT chest without contrast: History: History of pneumonia. Comparison radiograph of the chest is from August 24, 2018. Comparison chest CT study is from November 18, 2016. CT findings: There is an area of consolidation and atelectasis in the lingular segment of the left upper lobe at the left lung base. There is another area of peripheral consolidation in the left lower lobe posteriorly. There is a small quantity of left posterior pleural fluid. There is some subpleural fibrosis in the upper lobes bilaterally, left more so than right unchanged. No endobronchial disease is appreciated. A nasogastric tube is seen entering the stomach. There is early nathaniel bronchovascular infiltrate in the right middle lobe. There is a similar somewhat nodular density in the left upper lobe measuring 8 mm in greatest diameter. No hilar or mediastinal mass or adenopathy is observed. No vascular abnormalities appreciated other than vascular calcification. There are degenerative changes in the thoracic spine as before with slight wedging of the T12 vertebral body. Impression: Atelectasis and consolidation in the lingula and left lower lobe. Small left pleural effusion. Patchy areas of peribronchovascular density are seen in the left upper lobe and right middle lobe. 8 mm nodular opacity left upper lobe. Electronically Signed by Jesse Brown MD 08/29/2018 07:50 P
[2018-08-29] MEDS: methylPREDNISolone INJ 40 MG/1 ML VIAL (J2920) IV SCH (19:35)
[2018-08-29] MEDS: cefTRIAXone SOD 1 GM in D5W MINI-BAG PLUS 50 ML IV SCH (19:35)
[2018-08-29] MEDS: AZITHROMYCIN INJ 500 MG, VIAL MATE ADAPTER 1 EACH in D5W 250 ML IV SCH (20:36)
[2018-08-29 21:54] VITALS: BP 111/60
[2018-08-30] MEDS: D5W/LR 1,000 ML IV SCH ×3 (00:59→17:21)
[2018-08-30 01:50] VITALS: BP 137/65
[2018-08-30] MEDS: methylPREDNISolone INJ 40 MG/1 ML VIAL (J2920) IV SCH ×2 (05:31→17:21)
[2018-08-30] MEDS: cefTRIAXone SOD 1 GM in D5W MINI-BAG PLUS 50 ML IV SCH ×2 (05:31→17:21)
[2018-08-30 05:35] VITALS: BP 142/77
[2018-08-30 07:12] LABS: HEMATOCRIT 37.8 % (42.0-52.0); HEMOGLOBIN 12.5 g/dl (13.5-17.5); MEAN CORPUSCULAR HEMOGLOBIN 29.6 pg (27.0-33.0); MEAN CORPUSCULAR HGB CONC 33.1 g/dl (32.0-36.5); MEAN CORPUSCULAR VOLUME 89.4 fl (80.0-96.0); PLATELET COUNT, AUTOMATED 160 10^3/uL (150-450); RED BLOOD COUNT 4.23 10^6/uL (4.30-6.10); WHITE BLOOD COUNT 9.5 10^3/uL (4.0-10.0)
[2018-08-30 07:31] LABS: BLOOD UREA NITROGEN 11 MG/DL (7-18); CALCIUM LEVEL 8.1 MG/DL (8.8-10.2); CARBON DIOXIDE LEVEL 28 MEQ/L (21-32); CHLORIDE LEVEL 106 MEQ/L (98-107); CREATININE FOR GFR 0.67 MG/DL (0.70-1.30); GLOMERULAR FILTRATION RATE > 60.0 (>35); GLUCOSE, FASTING 123 MG/DL (70-100); SODIUM LEVEL 142 MEQ/L (136-145)
[2018-08-30] MEDS: PANTOPRAZOLE 40MG INJ (PROTONIX) (C9113) IV SCH (08:32)
[2018-08-30] MEDS ORDERED: predniSONE 20 MG TAB PO SCH (09:00)
--- NOTE | 2018-08-30 10:34 | REP ---
ABDOMEN FLAT UPRIGHT PA CHEST, FOUR VIEWS: HISTORY: Small bowel obstruction. COMPARISON: CT 08/29/2018. Contrast material is present in the colon from a recent CT examination. An NG tube is present in the stomach. Air is present in small and large intestine. There are several dilated loops of small intestine. Several air fluid levels are present. These are decreased in number compared to the previous study. There is no pneumoperitoneum. Patchy density is present in the left lower lobe consistent with atelectasis or infiltrate. There is blunting of the left costophrenic angle due to a small pleural effusion. IMPRESSION: 1. Findings consistent with small bowel obstruction. There are fewer dilated loops of intestine in the present examination. 2. Left lower lobe atelectasis or infiltrate and small left pleural effusion. Electronically Signed by Sergey Carmona MD 08/30/2018 10:41 A
--- NOTE | 2018-08-30 10:55 | IPN ---
DATE: 08/30/2018 PROGRESS NOTE: Patient has been doing well, having less abdominal distension. He has not had any fevers or chills overnight and overall has not had any bowel movements. However, states he may have had a little bit of flatus. He had a significant amount of drainage last night but that has dropped down significantly and is not very much at this point. It is still a little bit bilious at this point. On his physical exam, his abdomen is nondistended, nontender, but the question is whether his nasogastric (NG) tube is in adequate placement or whether he is resolving his bowel obstruction. We will get an acute abdominal series and look at his abdomen and the NG tube placement as well as the abdominal distension or small bowel distension which appears to have improved substantially, and depending on this, we may reposition his NG tube or keep things as is. At this point, we will continue him on intravenous (IV) fluids and nothing by mouth.
--- NOTE | 2018-08-30 10:56 | HPE ---
DATE OF ADMISSION: 08/29/2018 BRIEF HISTORY OF PRESENT ILLNESS: The patient is a 83-year-old male who presents with a history of ulcerative colitis in the past and has had a previous colectomy with it looks like a sigmoid colectomy in the past, essentially presents now with a small bowel obstruction. He was recently discharged from the hospital and returns with evidence of small bowel obstruction. He has had no fevers, no chills. Nausea and vomiting has been present at home with crampy abdominal pain. PAST MEDICAL HISTORY: Significant for: History of ulcerative colitis. History of hyperlipidemia. History of coronary artery disease. History of B cell lymphoma. History of hip repair. History of cholecystectomy. Sigmoid resection. Appendectomy. PHYSICAL EXAMINATION: Reveals an 83-year-old who appears stated age. HEENT: Unremarkable. NECK: Supple, no adenopathy. LUNGS: Clear to auscultation, although diminished at the bases bilaterally, with a few wheezes appreciated. HEART: Regular with a few irregular beats. ABDOMEN: Softly distended, tympanitic, without guarding, rebound or peritoneal signs. IMPRESSION/PLAN: Patient has evidence of recurrence of his small bowel obstruction and it appears to be in the same area that was appreciated on his CT scan a few days ago on his recent admission. Despite the resolution of his small bowel obstruction, it appears that recurred quickly and thus my anticipation is that he will need operative intervention during this admission. This was discussed with the family and the patient and they agreed to proceed with operative intervention. However, given his abdominal distention, I have discussed with him that we should let his abdomen decompress as much as possible and once it decompresses adequately then possibly proceeding with a laparoscopic adhesiolysis would be possible. He agrees to have the NG tube, nothing by mouth, and will see how he does over the ensuring 24-48 hours. If he has resolution of his small bowel obstruction, of course we may start him on some clears, but I would like to avoid advancing his diet incase he recurs and causes more distention and delays operative intervention. In any case, will have medicine see him for recommendations and their input onto his candidacy for operative intervention.
[2018-08-30 15:30] VITALS: BP 158/70
--- NOTE | 2018-08-30 16:29 | IPNPDOC ---
Subjective Date Seen The patient was seen on 08/30/18. Subjective Chief Complaint/HPI Patient seen and examined at the bedside. Denies any acute complaints at this time. Notes that his abdominal distention has improved, and that he has no abdominal pain at this time. The patient's NG tube continues to put out bilious drainage, but this has decreased in volume. Objective Physical Examination General Exam: Positive: Alert, Cooperative, No Acute Distress ENT Exam: Positive: Atraumatic Neck Exam: Negative: JVD Chest Exam: Positive: Clear to auscultation, Normal air movement Heart Exam: Positive: Rate Normal, Normal S1, Normal S2 Abdomen Exam: Positive: Soft; Negative: Tenderness Extremity Exam: Negative: Tenderness, Swelling Psych Exam: Positive: Oriented x 3 Assessment /Plan Plan/VTE VTE Prophylaxis Ordered?: Yes Plan Small bowel obstruction CT Abd/Pel noted from admission Repeat Abd XR ordered this AM by surgery Patient with NG tube, and has decreased bilious output Denies any abd pain, reports improvement of distention, otherwise resting comfortably Will follow-up with general surgery recommendations Community Acquired Pneumonia CT Chest notable for LLL consolidation Cont Jackie Lobato We will cont to monitor 8mm EMILIA Nodule Opacity noted Discussed findings with the patient, and the need to follow up as an outpatient with a repeat CT Scan in 2-3 months to f/u resolution vs need for further work up including but not limited to biopsy History of coronary artery disease Patient denies any complaints of chest pain, palpitations, or shortness of breath Hx of B-cell lymphoma Deep venous thrombosis (DVT) prophylaxis SCDs/TEDs VS, I&O, 24H, Fishbone Vital Signs/I&O Vital Signs Date Time Temp Pulse Resp B/P (MAP) Pulse Ox O2 Delivery O2 Flow Rate FiO2 08/30/18 15:30 97.0 60 20 158/70 (99) 95 08/30/18 05:35 Room Air I&O- Last 24 Hours up to 6 AM 08/30/18 06:00 Output Total 2150 ml Balance -2150 ml Laboratory Data 24H LABS Laboratory Tests 2 08/30/18 06:33: Nucleated Red Blood Cells % (auto) 0.0, Anion Gap 8, Glomerular Filtration Rate > 60.0, Blood Urea Nitrogen 11, Creatinine 0.67L, Sodium Level 142, Potassium Level 4.0, Chloride Level 106, Carbon Dioxide Level 28, Calcium Level 8.1L, Magnesium Level 2.0 CBC/BMP Laboratory Tests 08/30/18 06:33 Red Blood Count 4.23 L, Mean Corpuscular Volume 89.4, Mean Corpuscular Hemoglobin 29.6, Mean Corpuscular Hemoglobin Concent 33.1, Red Cell Distribution Width 14.0, Calcium Level 8.1 L TINO STRATTON MD Aug 30, 2018 16:28
[2018-08-30] MEDS: AZITHROMYCIN INJ 500 MG, VIAL MATE ADAPTER 1 EACH in D5W 250 ML IV SCH (18:04)
[2018-08-30 22:00] VITALS: BP 137/82
[2018-08-31] MEDS: D5W/LR 1,000 ML IV SCH ×3 (00:27→14:46)
[2018-08-31 02:00] VITALS: BP 134/167
[2018-08-31] MEDS: cefTRIAXone SOD 1 GM in D5W MINI-BAG PLUS 50 ML IV SCH ×2 (05:10→18:18)
[2018-08-31] MEDS: methylPREDNISolone INJ 40 MG/1 ML VIAL (J2920) IV SCH ×2 (05:11→16:14)
[2018-08-31 06:00] VITALS: BP 168/77
[2018-08-31 08:05] LABS: HEMATOCRIT 38.3 % (42.0-52.0); HEMOGLOBIN 12.9 g/dl (13.5-17.5); MEAN CORPUSCULAR HEMOGLOBIN 29.3 pg (27.0-33.0); MEAN CORPUSCULAR HGB CONC 33.7 g/dl (32.0-36.5); PLATELET COUNT, AUTOMATED 191 10^3/uL (150-450); WHITE BLOOD COUNT 9.3 10^3/uL (4.0-10.0)
[2018-08-31 08:26] LABS: BLOOD UREA NITROGEN 12 MG/DL (7-18); CALCIUM LEVEL 8.6 MG/DL (8.8-10.2); CARBON DIOXIDE LEVEL 28 MEQ/L (21-32); CHLORIDE LEVEL 105 MEQ/L (98-107); CREATININE FOR GFR 0.66 MG/DL (0.70-1.30); GLOMERULAR FILTRATION RATE > 60.0 (>35); GLUCOSE, FASTING 99 MG/DL (70-100); MAGNESIUM LEVEL 2.1 MG/DL (1.8-2.4); POTASSIUM SERUM 4.1 MEQ/L (3.5-5.1); SODIUM LEVEL 138 MEQ/L (136-145)
[2018-08-31] MEDS: PANTOPRAZOLE 40MG INJ (PROTONIX) (C9113) IV SCH (09:44)
--- NOTE | 2018-08-31 11:20 | REP ---
ABDOMEN FLAT, UPRIGHT, PA CHEST, TWO VIEWS: HISTORY: Small bowel obstruction. COMPARISON: 08/30/2018 Contrast material is present in the colon from a recent CT examination. Air is present in small and large intestine. Several air fluid levels are present. There is no pneumoperitoneum. This is not significantly change compared to the previous study. Patchy density is present in the left lower lobe consistent with atelectasis or infiltrate. There is blunting of the left costophrenic angle due to a small pleural effusion. IMPRESSION: 1. Findings consistent with small bowel obstruction unchanged compared to the previous study. 2. Left lower lobe atelectasis or infiltrate and small left pleural effusion unchanged compared to the previous study. Electronically Signed by Sergey Carmona MD 08/31/2018 11:23 A
--- NOTE | 2018-08-31 13:05 | IPNPDOC ---
Subjective Date Seen The patient was seen on 08/31/18. Subjective Chief Complaint/HPI Patient seen and examined at bedside. Denies any complaints of abdominal pain or nausea. States that he had a small loose BM last night. The patient's NG tube apparently came out this morning during transport for abdominal x-ray, but denies any acute complaints at this time. Objective Physical Examination General Exam: Positive: Alert, Cooperative, No Acute Distress ENT Exam: Positive: Atraumatic Neck Exam: Negative: JVD Chest Exam: Positive: Clear to auscultation, Normal air movement Heart Exam: Positive: Rate Normal, Normal S1, Normal S2 Abdomen Exam: Positive: Soft; Negative: Tenderness Extremity Exam: Negative: Tenderness, Swelling Psych Exam: Positive: Oriented x 3 Assessment /Plan Plan/VTE VTE Prophylaxis Ordered?: Yes Plan Small bowel obstruction CT Abd/Pel noted from admission Abd XR from 08/30 & 08/31 notable for SBO, LLL Infiltrate Denies any abd pain, nausea, and notes that he had a small loose BM last night Will follow-up with general surgery recommendations Community Acquired Pneumonia CT Chest notable for LLL consolidation Cont Jackie Lobato We will cont to monitor 8mm EMILIA Nodule Opacity noted Discussed findings with the patient, and the need to follow up as an outpatient with a repeat CT Scan in 2-3 months to f/u resolution vs need for further work up including but not limited to biopsy History of coronary artery disease Patient denies any complaints of chest pain, palpitations, or shortness of breath Hx of B-cell lymphoma Deep venous thrombosis (DVT) prophylaxis SCDs/TEDs VS, I&O, 24H, Fishbone Vital Signs/I&O Vital Signs Date Time Temp Pulse Resp B/P (MAP) Pulse Ox O2 Delivery O2 Flow Rate FiO2 08/31/18 06:00 96.7 55 18 168/77 (107) 95 Room Air I&O- Last 24 Hours up to 6 AM 08/31/18 06:00 Intake Total 10 ml Output Total 675 ml Balance -665 ml Laboratory Data 24H LABS Laboratory Tests 2 08/31/18 07:44: Nucleated Red Blood Cells % (auto) 0.0, Anion Gap 5L, Glomerular Filtration Rate > 60.0, Blood Urea Nitrogen 12, Creatinine 0.66L, Sodium Level 138, Potassium L evel 4.1, Chloride Level 105, Carbon Dioxide Level 28, Calcium Level 8.6L, Magnesium Level 2.1 CBC/BMP Laboratory Tests 08/31/18 07:44 Red Blood Count 4.40, Mean Corpuscular Volume 87.0, Mean Corpuscular Hemoglobin 29.3, Mean Corpuscular Hemoglobin Concent 33.7, Red Cell Distribution Width 13.7, Calcium Level 8.6 L TINO STRATTON MD Aug 31, 2018 13:05
[2018-08-31 13:49] VITALS: BP 132/60
[2018-08-31] MEDS: AZITHROMYCIN INJ 500 MG, VIAL MATE ADAPTER 1 EACH in D5W 250 ML IV SCH (16:14)
[2018-08-31 20:00] VITALS: BP 168/88
[2018-09-01] VITALS (9 sets, daily range): BP systolic 134–170; BP diastolic 58–82
[2018-09-01] MEDS: D5W/LR 1,000 ML IV SCH ×3 (00:59→21:18)
[2018-09-01] MEDS: methylPREDNISolone INJ 40 MG/1 ML VIAL (J2920) IV SCH ×2 (05:04→18:13)
[2018-09-01] MEDS: cefTRIAXone SOD 1 GM in D5W MINI-BAG PLUS 50 ML IV SCH ×2 (05:05→18:13)
[2018-09-01 05:46] LABS: HEMATOCRIT 36.2 % (42.0-52.0); HEMOGLOBIN 12.3 g/dl (13.5-17.5); MEAN CORPUSCULAR HEMOGLOBIN 29.6 pg (27.0-33.0); PLATELET COUNT, AUTOMATED 175 10^3/uL (150-450); RED BLOOD COUNT 4.16 10^6/uL (4.30-6.10); WHITE BLOOD COUNT 8.3 10^3/uL (4.0-10.0)
[2018-09-01 06:12] LABS: BLOOD UREA NITROGEN 12 MG/DL (7-18); CARBON DIOXIDE LEVEL 27 MEQ/L (21-32); CHLORIDE LEVEL 105 MEQ/L (98-107); CREATININE FOR GFR 0.68 MG/DL (0.70-1.30); GLOMERULAR FILTRATION RATE > 60.0 (>35); GLUCOSE, FASTING 88 MG/DL (70-100); SODIUM LEVEL 139 MEQ/L (136-145)
[2018-09-01] MEDS: PANTOPRAZOLE 40MG INJ (PROTONIX) (C9113) IV SCH (08:33)
--- NOTE | 2018-09-01 10:33 | IPN ---
DATE: 09/01/2018 The patient seems to be making some good progress from his abdominal distension. He had some bowel movements yesterday and overall is not have any pain or discomfort. Still has had some nasogastric (NG) tube output. He has not had any fevers or chills but his NG tube output has significantly diminished. His x-ray did show improvement of the small bowel obstruction but no significant resolution. He states he has had some flatus as well. On his abdominal exam, abdomen is mildly distended, nontender and no guarding no rebound. No peritoneal signs are appreciated. IMPRESSION AND PLAN: The patient seems to be resolving his small-bowel obstruction to some extent. Will plan on operative intervention tomorrow afternoon with a diagnostic laparoscopy with possible laparoscopic lysis of adhesions. He and the family agreed to proceed with this. They would like to go ahead with this given his recurrence of the small bowel obstruction in such a short time. Understanding the risks include but are not limited to infection, bleeding ulcer structures including possible need for open operative intervention and possible need for a small bowel resection, etc.
[2018-09-01] MEDS ORDERED: GLYCOPYRROLATE INJ 0.2 MG/ML 2 ML VIAL As Ordered ONE (13:48)
[2018-09-01] MEDS ORDERED: NEOSTIGMINE 10 MG/10 ML VIAL (J2710) As Ordered ONE (13:48)
[2018-09-01] MEDS ORDERED: PROPOFOL 200 MG/20 ML VIAL As Ordered ONE ×2 (13:48→14:39)
[2018-09-01] MEDS ORDERED: ROCURONIUM BROMIDE 50 MG/5 ML VIAL As Ordered ONE ×2 (13:48→14:39)
[2018-09-01] MEDS ORDERED: LIDOCAINE 2% INJ 100 MG/5 ML SDV (FOR ANES.) As Ordered ONE ×2 (13:48→14:39)
[2018-09-01] MEDS ORDERED: ONDANSETRON 4MG/2ML VIAL (J2405) As Ordered ONE ×2 (13:48→14:39)
[2018-09-01] MEDS ORDERED: dexameTHASONE 4 MG/ML 1ML VIAL (J1100) As Ordered ONE (13:48)
[2018-09-01] MEDS ORDERED: fentaNYL 100 MCG/2 ML INJECTION (J3010) As Ordered ONE ×2 (13:49→14:04)
[2018-09-01] MEDS ORDERED: MIDAZOLAM INJ 2 MG/2 ML VIAL (J2250) As Ordered ONE ×2 (13:49→14:05)
[2018-09-01] MEDS ORDERED: BUPIVACAINE/EPIN 0.25% 30 ML VIAL As Ordered ONE (13:56)
[2018-09-01] MEDS ORDERED: HYDROmorphone HCL 2 MG/ML 1ML VIAL (J1170) As Ordered ONE (14:04)
[2018-09-01] MEDS ORDERED: PHENYLephrine HCL 500 MCG/5 ML (100MCG/ML) SYRINGE (J2370) As Ordered ONE (14:39)
[2018-09-01] MEDS ORDERED: ceFAZolin 1GM INJ (J0690 PER 500MG) As Ordered ONE (14:43)
[2018-09-01] MEDS ORDERED: ceFAZolin 2 GM/D5W 50 ML IV BAG (J0690 PER 500MG) As Ordered ONE (14:44)
[2018-09-01] MEDS ORDERED: SUCCINYLCHOLINE 100 MG/5 ML SYRINGE (J0330) As Ordered ONE (15:00)
[2018-09-01] MEDS ORDERED: SUGAMMADEX SODIUM 500 MG/5 ML VIAL (BRIDION) As Ordered ONE (15:01)
[2018-09-01] MEDS ORDERED: hydrALAZINE INJ 20 MG/ML VIAL As Ordered ONE (15:45)
--- NOTE | 2018-09-01 15:49 | IPNPDOC ---
Subjective Date Seen The patient was seen on 09/01/18. Subjective Chief Complaint/HPI Patient seen and examined at the bedside. Denies any acute abdominal complaints, denies any nausea or vomiting since his NG tube was taken out yesterday. He has also had several bowel movements during this time. The patient is scheduled to undergo laparoscopic intervention with surgery for possible lysis of adhesions this afternoon. Objective Physical Examination General Exam: Positive: Alert, Cooperative, No Acute Distress ENT Exam: Positive: Atraumatic, Mucous membr. moist/pink Neck Exam: Negative: JVD Chest Exam: Positive: Clear to auscultation, Normal air movement Heart Exam: Positive: Rate Normal, Normal S1, Normal S2 Abdomen Exam: Positive: Soft; Negative: Tenderness Extremity Exam: Negative: Tenderness, Swelling Psych Exam: Positive: Oriented x 3 Assessment /Plan Plan/VTE VTE Prophylaxis Ordered?: Yes Plan Small bowel obstruction CT Abd/Pel noted from admission Abd XR from 08/30 & 08/31 notable for SBO, LLL Infiltrate Denies any abd pain, nausea, and notes that he has had several BMs Patient scheduled for laparoscopic intervention with surgery for possible lysis of adhesions this afternoon Community Acquired Pneumonia CT Chest notable for LLL consolidation Cont Jackie Lobato We will cont to monitor 8mm EMILIA Nodule Opacity noted Discussed findings with the patient and his daughter at the bedside, and the need to follow up as an outpatient with a repeat CT Scan in 2-3 months to f/u resolution vs need for further work up including but not limited to biopsy History of coronary artery disease Patient denies any complaints of chest pain, palpitations, or shortness of breath Hx of B-cell lymphoma Deep venous thrombosis (DVT) prophylaxis SCDs/TEDs VS, I&O, 24H, Fishbone Vital Signs/I&O Vital Signs Date Time Temp Pulse Resp B/P (MAP) Pulse Ox O2 Delivery O2 Flow Rate FiO2 09/01/18 08:00 97.1 51 18 158/60 (92) 95 Room Air I&O- Last 24 Hours up to 6 AM 09/01/18 05:59 Intake Total 1250 ml Output Total 1550 ml Balance -300 ml Laboratory Data 24H LABS Laboratory Tests 2 09/01/18 05:26: Nucleated Red Blood Cells % (auto) 0.0, Anion Gap 7L, Glomerular Filtration Rate > 60.0, Blood Urea Nitrogen 12, Creatinine 0.68L, Sodium Level 139, Potassium Level 4.0, Chloride Level 105, Carbon Dioxide Level 27, Calcium Level 8.0L, Magnesium Level 2.0 CBC/BMP Laboratory Tests 09/01/18 05:26 Red Blood Count 4.16 L, Mean Corpuscular Volume 87.0, Mean Corpuscular Hemog lobin 29.6, Mean Corpuscular Hemoglobin Concent 34.0, Red Cell Distribution Width 13.9, Calcium Level 8.0 L TINO STRATTON MD Sep 01, 2018 15:49
[2018-09-01] MEDS ORDERED: IBUPROFEN 400 MG TAB PO PRN (16:15)
[2018-09-01] MEDS ORDERED: ACETAMINOPHEN TAB 650MG DOSE (2X325MG) PO PRN (16:15)
[2018-09-01] MEDS ORDERED: fentaNYL 100 MCG/2 ML INJECTION (J3010) IV PRN (16:45)
[2018-09-01] MEDS ORDERED: MORPHINE 10 MG/ML 1ML VIAL (J2270) IV PRN (16:45)
[2018-09-01] MEDS ORDERED: LR 1,000 ML IV SCH (16:45)
[2018-09-01] MEDS ORDERED: ONDANSETRON 4MG/2ML VIAL (J2405) IV PRN (16:45)
[2018-09-01] MEDS ORDERED: METOCLOPRAMIDE INJ 10MG/2ML VIAL (J2765) IV PRN (16:45)
[2018-09-01] MEDS: hydrALAZINE INJ 20 MG/ML VIAL IV SCH ×5 (16:45→17:05)
[2018-09-01] MEDS: LABETALOL HCL 100 MG/20 ML VIAL IV SCH ×6 (16:50→17:15)
[2018-09-01] MEDS: AZITHROMYCIN INJ 500 MG, VIAL MATE ADAPTER 1 EACH in D5W 250 ML IV SCH (19:02)
[2018-09-02 01:30] VITALS: BP 122/61
[2018-09-02] MEDS: methylPREDNISolone INJ 40 MG/1 ML VIAL (J2920) IV SCH (05:25)
[2018-09-02] MEDS: cefTRIAXone SOD 1 GM in D5W MINI-BAG PLUS 50 ML IV SCH (05:26)
[2018-09-02 06:00] VITALS: BP 122/60
[2018-09-02 07:07] LABS: HEMATOCRIT 37.5 % (42.0-52.0); HEMOGLOBIN 12.6 g/dl (13.5-17.5); MEAN CORPUSCULAR HEMOGLOBIN 29.5 pg (27.0-33.0); MEAN CORPUSCULAR HGB CONC 33.6 g/dl (32.0-36.5); MEAN CORPUSCULAR VOLUME 87.8 fl (80.0-96.0); PLATELET COUNT, AUTOMATED 183 10^3/uL (150-450); RED BLOOD COUNT 4.27 10^6/uL (4.30-6.10); WHITE BLOOD COUNT 7.6 10^3/uL (4.0-10.0)
[2018-09-02 07:31] LABS: BLOOD UREA NITROGEN 9 MG/DL (7-18); CALCIUM LEVEL 8.1 MG/DL (8.8-10.2); CARBON DIOXIDE LEVEL 29 MEQ/L (21-32); CHLORIDE LEVEL 104 MEQ/L (98-107); GLOMERULAR FILTRATION RATE > 60.0 (>35); GLUCOSE, FASTING 98 MG/DL (70-100); MAGNESIUM LEVEL 1.9 MG/DL (1.8-2.4); POTASSIUM SERUM 4.2 MEQ/L (3.5-5.1); SODIUM LEVEL 141 MEQ/L (136-145)
[2018-09-02] MEDS: PANTOPRAZOLE 40MG INJ (PROTONIX) (C9113) IV SCH (09:08)
[2018-09-02 14:00] VITALS: BP 127/67
[2018-09-02] MEDS ORDERED: Acetaminophen Tab PO (14:29)
--- NOTE | 2018-09-16 16:36 | RO ---
DATE OF PROCEDURE: 09/01/2018 PREPROCEDURE DIAGNOSIS: Small bowel obstruction, probably secondary to adhesions. POSTPROCEDURE DIAGNOSIS: Small bowel obstruction, probably secondary to adhesions. OPERATIVE PROCEDURE: Laparoscopic lysis of adhesions. SURGEON: Nate Sanchez MD NURSERY LABORER: ANESTHESIA: General endotracheal anesthesia ESTIMATED BLOOD LOSS: Minimal FLUIDS: Crystalloid. BRIEF PROCEDURE SUMMARY The patient was brought to the operating room and was given general anesthesia. After adequate anesthesia and preoperative antibiotics were given the patient was prepped and draped in the usual sterile fashion. Next, a left subcostal 5 mm trocar was inserted after first the blunt dissection was carried down to the fascia after making a small skin incision with a #15 blade and Veress needle was placed into the abdominal cavity, insufflated to 15 mm pressure. A 5 mm trocar was placed under direct visualization and under direct visualization a left lower quadrant 5 mm trocar was placed. There is numerous adhesions up against the anterior abdominal wall. These were taken down with the harmonic scalpel and then there was some bowel that was up against the anterior abdominal wall. This was taken down with sharp dissection. Once this was cleared and the concerning area was down in the pelvis/possibly in the right lower quadrant the small bowel needed to be run. Thus at this point a third 5 mm trocar was placed and then the bowel was run using the 5 mm trocar sites and eventually this was followed down to a great deal of adhesions in one area where the small bowel was adherent to the small bowel and it was actually adherent in the pelvis and it was actually in the left lower quadrant more so than the right lower quadrant, but in any case, the adhesions were taken down sharply and once these were mobilized then the entire matted area of small bowel was able to be mobilized further. This again was the area of concern. Distal to this was the ileocecal valve and the ileum itself and distal jejunum and this all appeared decompressed a normal appearing. Proximal to this of small bowel was mildly dilated to moderately dilated. In any case that area was reevaluated and there were adhesions between small bowel and small bowel portions that were taken down sharply. And eventually once these were all mobilized quite nicely, no evidence of sore serosal tears, no evidence of bowel injury was appreciated and the bowel was followed again from the ileocecal valve back up towards the ligament Treitz. Once this was performed, then I felt that this was nicely mobilized. No evidence of strictures and then all trocars removed under direct visualization. #4-0 Vicryl was used to close all skin incisions. Steri-Strips and a dry sterile dressing was applied. The patient was awakened from his anesthesia, extubated, brought to recovery room awake, alert and hemodynamic stable. Sponge and needle counts correct times two.
--- NOTE | 2018-09-16 16:37 | DSES ---
DATE OF ADMISSION: 08/29/2018 DATE OF DISCHARGE: 09/02/2018 PRINCIPAL DIAGNOSIS: Small bowel obstruction secondary to adhesions. ASSOCIATED DIAGNOSES: 1. History of ulcerative colitis. 2. History of hyperlipidemia. 3. History of coronary artery disease. 4. History of B cell lymphoma. 5. History of hip repair. 6. History of cholecystectomy. 7. History of sigmoid resection. 8. History of appendectomy. PROCEDURES PERFORMED: Laparoscopic lysis of adhesions on 09/01/2018. BRIEF HISTORY OF PRESENT ILLNESS: The patient is an 83-year-old male who presents with a recent admission for small bowel obstruction and essentially returns within 48 hours with evidence of a recurrence of his small bowel obstruction with abdominal distention, nausea, vomiting, and crampy abdominal pain. HOSPITAL COURSE: The patient was admitted with the above diagnosis. He was brought to the floor and a nasogastric tube was placed and after nasogastric tube decompression, the patient started having bowel movements and resolution of his crampy abdominal pain. He improved substantially but because of recurrence, we discussed the option of proceeding with a diagnostic laparoscopy, possible lysis of adhesions and given this close interval of recurrence, my recommendation was to proceed with this and the family agreed. The patient was taken to the operating room where he underwent laparoscopic lysis of adhesions. He tolerated the procedure well and postoperatively did very well with no significant pain or discomfort appreciated and essentially was started on a clear liquid diet and advanced to a regular diet prior to discharge and was discharged home on Tylenol for discomfort, but otherwise to continue on his usual medications, which include aspirin, Lasix, Humira, loperamide, nitroglycerin, pravastatin, prednisone. He was to followup in my office in 1 to 2 weeks, sooner if there were any questions or concerns, fevers or chills.
== END 2018-09-02 15:45 | disposition home or self-care (01) | DRG 335 ==
LOC: M ED 21:09 → M ED INP 08-29 08:59 → M MS4PR 08-29 10:59
PROVIDERS: ADMIT Surgery; ATTEND Surgery
PROC: 0DN84ZZ Release Small Intestine, Percutaneous Endoscopic Approach (ICD-10-PCS; principal; 2018-09-01 15:45)
DX: K56.609 Unspecified intestinal obstruction, unspecified as to partial versus complete obstruction (principal); J18.9 Pneumonia, unspecified organism; C85.10 Unspecified B-cell lymphoma, unspecified site; E78.5 Hyperlipidemia, unspecified; I25.10 Atherosclerotic heart disease of native coronary artery without angina pectoris; I10 Essential (primary) hypertension; Z95.2 Presence of prosthetic heart valve; R91.1 Solitary pulmonary nodule

== ENCOUNTER → 2018-11-13 | Outpatient (REF) | payer MEDICARE ==
[~2018-11-13] MED LIST changes: +Acetaminophen Tab PO
== END ==
LOC: M LAB REF 11:18
PROVIDERS: ATTEND Internal Medicine Gastroenterology
DX: R19.7 Diarrhea, unspecified (principal)

== ENCOUNTER → 2018-12-19 | Outpatient (CLI) | payer MEDICARE ==
[~2018-12-19] MED LIST changes: -ASPI1TAB PO; -ASPI81CH PO; +ASPI81CH49 PO; +ASPI81TA26 PO; -SENN1TAB2 PO; +SENN1TAB40 PO
--- NOTE | 2018-12-19 10:19 | REP ---
Chest two views HISTORY: Left lung rhonchi Comparison: 08/31/2018 A calcified granuloma is present in the right upper lobe. Patchy density is present in the left lower lobe consistent with atelectasis or infiltrate unchanged compared to the previous study. The heart is normal in size. The pulmonary vasculature is normal in appearance. The bony structure is intact. IMPRESSION: Left lower lobe atelectasis or infiltrate unchanged compared to the previous study. Electronically Signed by Sergey Carmona MD 12/19/2018 10:10 A
== END ==
LOC: M LRY 08:57
PROVIDERS: ATTEND Family Medicine
DX: R09.89 Other specified symptoms and signs involving the circulatory and respiratory systems (principal)
CPT/HCPCS: 71046; 80048; 85025; G0463

== ENCOUNTER → 2018-12-19 | Outpatient (REF) | payer MEDICARE ==
[2018-12-19 11:25] LABS: BASO % 0.4 % (0.0-1.0); EOS # 0.4 10^3/uL (0.0-0.50); EOS % 3.5 % (0.0-3.0); HEMATOCRIT 40.5 % (42.0-52.0); HEMOGLOBIN 13.5 g/dl (13.5-17.5); LYMPH # 4.3 10^3/uL (1.5-4.5); LYMPH % 38.5 % (24.0-44.0); MEAN CORPUSCULAR HEMOGLOBIN 30.5 pg (27.0-33.0); MEAN CORPUSCULAR HGB CONC 33.3 g/dl (32.0-36.5); MEAN CORPUSCULAR VOLUME 91.6 fl (80.0-96.0); MONO % 8.4 % (0.0-5.0); NEUTROPHILS # 5.5 10^3/uL (1.8-7.7); NEUTROPHILS % 48.8 % (36.0-66.0); PLATELET COUNT, AUTOMATED 195 10^3/uL (150-450); RED BLOOD COUNT 4.42 10^6/uL (4.30-6.10); WHITE BLOOD COUNT 11.3 10^3/uL (4.0-10.0)
[2018-12-19 11:29] LABS: BLOOD UREA NITROGEN 13 MG/DL (7-18); CALCIUM LEVEL 8.3 MG/DL (8.8-10.2); CARBON DIOXIDE LEVEL 31 MEQ/L (21-32); CHLORIDE LEVEL 104 MEQ/L (98-107); CREATININE FOR GFR 0.92 MG/DL (0.70-1.30); GLOMERULAR FILTRATION RATE > 60.0 (>35); GLUCOSE, FASTING 92 MG/DL (70-100); SODIUM LEVEL 141 MEQ/L (136-145)
== END ==
LOC: M SFHCLERA 08:38
PROVIDERS: ATTEND Family Medicine
DX: R09.89 Other specified symptoms and signs involving the circulatory and respiratory systems (principal); I10 Essential (primary) hypertension

== ENCOUNTER → 2019-05-04 | Outpatient (REF) | payer MEDICARE | LOC: M LAB REF 11:53 | PROVIDERS: ATTEND Internal Medicine Gastroenterology | DX: R19.7 Diarrhea, unspecified (principal) ==

== ENCOUNTER → 2019-05-10 | Outpatient (CLI) | payer MEDICARE ==
[2019-05-10 11:59] LABS: C REACTIVE PROTEIN QUANTITATIV 1.9 MG/DL (0.00-0.30)
== END ==
LOC: M LRY 09:16
PROVIDERS: ATTEND Internal Medicine Gastroenterology
DX: K51.90 Ulcerative colitis, unspecified, without complications (principal)

== ENCOUNTER → 2019-05-11 | Outpatient (CLI) | payer MEDICARE ==
[~2019-05-11] MED LIST changes: +GASTROGRAFIN SOLUTION 30ML (Q9963) As Ordered ONE
--- NOTE | 2019-05-11 15:28 | REP ---
CT of the abdomen and pelvis with bowel contrast, without IV contrast: Comparison is 08/29/2018. Current studies performed for diarrhea, unspecified. The patient has additional clinical diagnosis of ulcerative colitis, unspecified, without complication. Additionally, the patient has a history of cholecystectomy, appendectomy and colon resection as well as the as activity. There is a circumferential surgical anastomotic suture ring at the rectosigmoid colon compatible with the history of colon resection. This appears to have been a sigmoid colon resection as I can identify the ileocecal valve, cecum, ascending colon, transverse colon and descending colon. There is mild wall thickening of the distal descending colon and to the anastomosis, compatible with the clinical history of ulcerative colitis. There is no wall thickening of the remainder of the colon. There is no bowel distension or obstruction. The small bowel distension identified previously has resolved. The visualized lower lung case demonstrate that the infiltrates in the lingula and left lower lobe and small left pleural effusion on the comparison study have resolved. The unenhanced hepatic parenchyma is unremarkable. There are surgical clips in the gallbladder fossa. There are pancreatic calcifications, likely from previous pancreatitis. These are unchanged. The spleen contains calcified granulomas, unchanged, but is otherwise unremarkable. There is a hypodense 2.2 cm right adrenal nodule with CT density measuring 6 HU, compatible with benign adenoma, unchanged from the prior study. The left adrenal is unremarkable. There is a renal cortical cyst in each kidney, unchanged from the prior study. Kidneys are otherwise unremarkable. There is aneurysmal dilatation of the proximal infrarenal abdominal aorta measuring up to 3.1 cm. This is unchanged. There is no periaortic hematoma. There is no bowel distension or obstruction. The mesentery is unremarkable. Pelvis: There are bilateral total hip arthroplasty resulting in significant beam-hardening artifact and obscuration of the inferior pelvis in spite of images being performed with beam-hardening reduction software. There are postsurgical changes in the sigmoid colon as previously discussed. There is wall thickening of the distal descending and remaining sigmoid colon compatible with colitis. This is unchanged. There is no ascites or adenopathy. Impression: The small bowel distension identified previously has resolved. Sigmoid colon resection. Wall thickening in the distal descending colon and remaining sigmoid colon compatible with colitis, unchanged. The remainder of the colon is unremarkable by CT. There is no bowel distension or obstruction. Pancreatic calcifications suggestive of previous pancreatitis, unchanged. Cholecystectomy and appendectomy. 3.1 a centimeter infrarenal abdominal aortic aneurysm, unchanged. No periaortic hematoma. Stable low density right adrenal nodule compatible with benign adrenal adenoma, unchanged. No adenopathy or ascites. Calcified granulomas in the spleen. The previously identified left lung infiltrates have resolved. Bilateral renal cortical cysts, unchanged. Electronically Signed by Rock Johnson MD 05/11/2019 03:19 P
== END ==
LOC: M RAD 12:54
PROVIDERS: ATTEND Internal Medicine Gastroenterology
DX: R19.7 Diarrhea, unspecified (principal); K51.90 Ulcerative colitis, unspecified, without complications
CPT/HCPCS: 74176; Q9963

== ENCOUNTER → 2019-05-19 | Outpatient (REF) | payer MEDICARE ==
[~2019-05-19] MED LIST changes: -GASTROGRAFIN SOLUTION 30ML (Q9963) As Ordered ONE
== END ==
LOC: M LAB REF 11:37
PROVIDERS: ATTEND Internal Medicine Gastroenterology
DX: R19.7 Diarrhea, unspecified (principal)

== ENCOUNTER → 2019-06-21 | Outpatient (REF) | payer MEDICARE ==
[~2019-06-21] MED LIST changes: +SENN-53 PO; -SENN1TAB40 PO
[2019-06-21 12:14] LABS: HEMOGLOBIN 12.1 g/dl (13.5-17.5); MEAN CORPUSCULAR HEMOGLOBIN 30.6 pg (27.0-33.0); MEAN CORPUSCULAR HGB CONC 32.7 g/dl (32.0-36.5); MEAN CORPUSCULAR VOLUME 93.4 fl (80.0-96.0); PLATELET COUNT, AUTOMATED 244 10^3/uL (150-450); RED BLOOD COUNT 3.96 10^6/uL (4.30-6.10)
[2019-06-21 12:17] LABS: WHITE BLOOD COUNT 10.2 10^3/uL (4.0-10.0)
[2019-06-21 12:25] LABS: ALBUMIN 2.4 GM/DL (3.2-5.2); ALT/SGPT 10 U/L (12-78); BILIRUBIN,TOTAL 0.4 MG/DL (0.2-1.0); BLOOD UREA NITROGEN 11 MG/DL (7-18); CALCIUM LEVEL 8.6 MG/DL (8.8-10.2); CARBON DIOXIDE LEVEL 31 MEQ/L (21-32); CHLORIDE LEVEL 100 MEQ/L (98-107); FOLATE 7.2 NG/ML; GLOMERULAR FILTRATION RATE > 60.0 (>35); GLUCOSE, FASTING 92 MG/DL (70-100); IRON (FE) 29 UG/DL (65-175); MAGNESIUM LEVEL 1.6 MG/DL (1.8-2.4); PERCENT SATURATION 21.8 % (19.7-50.0); POTASSIUM SERUM 4.1 MEQ/L (3.5-5.1); SODIUM LEVEL 138 MEQ/L (136-145); TOTAL IRON BINDING CAPACITY 133 UG/DL (250-450); TOTAL PROTEIN 6.4 GM/DL (6.4-8.2); VITAMIN B12 LEVEL 1972 PG/ML
[2019-06-21 12:54] LABS: ATYPICAL LYMPH 2 % (0-5); LYMPHOCYTES 49 % (16-44); MONOCYTES 7 % (0-5); NEUTROPHILS 42 % (28-66)
[2019-06-21 12:55] LABS: PLATELET ESTIMATE NORMAL (NORMAL)
[2019-06-25 14:39] LABS: VITAMIN B1 LEVEL WHOLE BLOOD 72.5 nmol/L (66.5-200.0)
== END ==
LOC: M SFHCLERA 09:26
PROVIDERS: ATTEND Family Medicine
DX: R63.4 Abnormal weight loss (principal)
CPT/HCPCS: 80053; 82607; 82746; 83550; 83735; 84425; 84443; 84630; 85025; G0463

== ENCOUNTER → 2019-07-07 | Outpatient (REF) | payer MEDICARE | LOC: M SFHCLERA 11:36 | PROVIDERS: ATTEND Physician Assistant | DX: R36.9 Urethral discharge, unspecified (principal) | CPT/HCPCS: 81002; 87086; G0463 ==

== ENCOUNTER → 2019-09-13 | Outpatient (REF) | payer MEDICARE | LOC: M SFHCLERA 12:07 | PROVIDERS: ATTEND Family Medicine | DX: E83.42 Hypomagnesemia (principal); K52.9 Noninfective gastroenteritis and colitis, unspecified; R60.0 Localized edema; Z53.8 Procedure and treatment not carried out for other reasons ==

== ENCOUNTER 2019-12-24 04:33 | Inpatient (IN) | payer MEDICARE ==
[~2019-12-24] VITALS: Ht 190.5 cm; Wt 97.5 kg
[~2019-12-24 04:33] MED LIST changes: +ASPI-551 PO; -EC-881TA PO
[2019-12-24] MEDS ORDERED: ZINC1TAB2 PO (05:48)
[2019-12-24] MEDS ORDERED: MAGN64TASA PO (05:48)
[2019-12-24] MEDS ORDERED: NS 500 ML IV ONE ×3 (06:30→12:45)
[2019-12-24] MEDS ORDERED: IBUP200T45 PO (06:41)
[2019-12-24] MEDS ORDERED: THERTAB18 PO (06:41)
[2019-12-24] MEDS ORDERED: LOPE2CAP PO (06:41)
[2019-12-24 06:52] LABS: BASO % 0.2 % (0.0-1.0); HEMATOCRIT 35.5 % (42.0-52.0); HEMOGLOBIN 11.4 g/dl (13.5-17.5); LYMPH # 1.4 10^3/uL (1.5-5.0); LYMPH % 10.8 % (24.0-44.0); MEAN CORPUSCULAR HEMOGLOBIN 26.9 pg (27.0-33.0); MEAN CORPUSCULAR HGB CONC 32.1 g/dl (32.0-36.5); MEAN CORPUSCULAR VOLUME 83.7 fl (80.0-96.0); MONO % 7.5 % (0.0-5.0); NEUTROPHILS # 10.4 10^3/uL (1.5-8.5); NEUTROPHILS % 80.4 % (36.0-66.0); PLATELET COUNT, AUTOMATED 245 10^3/uL (150-450); RED BLOOD COUNT 4.24 10^6/uL (4.30-6.10); WHITE BLOOD COUNT 12.9 10^3/uL (4.0-10.0)
--- NOTE | 2019-12-24 06:58 | REPVR ---
PROCEDURE INFORMATION: Exam: CT Head Without Contrast Exam date and time: 12/24/2019 6:42 AM Age: 84 years old Clinical indication: Pain; Headache; Additional info: Trauma TECHNIQUE: Imaging protocol: Computed tomography of the head without contrast. Radiation optimization: All CT scans at this facility use at least one of these dose optimization techniques: automated exposure control; mA and/or kV adjustment per patient size (includes targeted exams where dose is matched to clinical indication); or iterative reconstruction. COMPARISON: No relevant prior studies available. FINDINGS: Brain: There is moderate prominence of the peripheral sulci. There is minimal patchy low attenuation of deep white matter. Ventricles: There is mild prominence of the central ventricular system. Bones/joints: Unremarkable. No acute fracture. Sinuses: Visualized sinuses are unremarkable. No fluid levels. Mastoid air cells: Visualized mastoid air cells are well aerated. Soft tissues: Unremarkable. IMPRESSION: 1. Minimal chronic ischemic white matter change and moderate atrophy. 2. Otherwise negative noncontrast head CT. Electronically signed by: Atilio Yeung On 12/24/2019 06:57:56 AM
[2019-12-24 07:03] LABS: INR 1.35; PROTHROMBIN TIME 16.4 SECONDS (11.8-14.0)
--- NOTE | 2019-12-24 07:03 | REPVR ---
PROCEDURE INFORMATION: Exam: CT Cervical Spine Without Contrast Exam date and time: 12/24/2019 6:42 AM Age: 84 years old Clinical indication: Injury or trauma; Fall; Initial encounter; Blunt trauma TECHNIQUE: Imaging protocol: Computed tomography images of the cervical spine without contrast. Radiation optimization: All CT scans at this facility use at least one of these dose optimization techniques: automated exposure control; mA and/or kV adjustment per patient size (includes targeted exams where dose is matched to clinical indication); or iterative reconstruction. COMPARISON: No relevant prior studies available. FINDINGS: Vertebrae: Levoscoliosis through the cervical spine. C2-C3: Degenerative changes of the apophyseal joints, greatest on the right with no spinal or foraminal stenosis. C3-C4: Slight anterolisthesis with bilateral degenerative changes and apparent ankylosis. There is mild left neural foraminal stenosis. C4-C5: Mild interspace narrowing with mild anterolisthesis and bilateral degenerative changes primarily of apophyseal joints with borderline left neural foraminal stenosis. C5-C6: Mild interspace narrowing with slight anterolisthesis and minimal paracentral osteophytes and bilateral degenerative change of apophyseal joints with no significant spinal or foraminal stenosis. C6-C7: Moderate interspace narrowing with minimal posterior osteophytes and bilateral degenerative changes of apophyseal joints and the uncovertebral joints on the left with mild left neural foraminal stenosis. C7-T1: Slight anterolisthesis with degenerative changes of the apophyseal joints, primarily on the right with no significant spinal or foraminal stenosis. Soft tissues: Unremarkable. Lungs: Biapical interstitial prominence or scar. IMPRESSION: 1. Multilevel degenerative changes with no significant spinal stenosis. There are varying degrees of multilevel neural foraminal stenosis. 2. Otherwise negative CT cervical spine. No acute fracture or subluxation. Electronically signed by: Atilio Yeung On 12/24/2019 07:03:11 AM
[2019-12-24 07:04] LABS: PARTIAL THROMBOPLASTIN TIME 34.2 SECONDS (25.0-38.4)
[2019-12-24 07:17] LABS: CK-MB VALUE MASS 6.9 NG/ML (<3.6); CPK CREATINE PHOSPHOKINASE 560 U/L (39-308); MB/CK RELATIVE INDEX 1.23 (< OR =4); TROPONIN I < 0.02 NG/ML (< 0.10)
[2019-12-24 07:32] LABS: ALBUMIN 2.1 GM/DL (3.2-5.2); BILIRUBIN,DIRECT 0.2 MG/DL (0.0-0.2); BILIRUBIN,TOTAL 0.6 MG/DL (0.2-1.0); TOTAL PROTEIN 5.5 GM/DL (6.4-8.2)
--- NOTE | 2019-12-24 07:32 | REP ---
Clinical: Trauma. Technique: Frontal view of the pelvis with neutral and frog lateral views of the right and left hip. Findings: Evaluation is limited by advanced osteopenia and arthritic degenerative changes. The patient is noted to be status post bilateral hip replacement. No obvious acute fracture or dislocation is appreciated. Impression: Advanced osteopenia and degenerative changes. Evidence for bilateral hip replacement. No obvious acute fracture or dislocation. Electronically Signed by Harjinder Caruso MD 12/24/2019 07:23 A
--- NOTE | 2019-12-24 07:36 | REP ---
Clinical: Trauma . Comparison: 12/19/2018 . Findings: The mediastinum and cardiac silhouette are stable. The lung case demonstrate stable chronic changes without acute consolidation, effusion, or pneumothorax. Skeletal structures demonstrate osteopenia and advanced degenerative changes without obvious acute injury identified. Impression: No acute cardiopulmonary process appreciated. Electronically Signed by Harjinder Caruso MD 12/24/2019 07:28 A
[2019-12-24] MEDS ORDERED: cefTRIAXone SOD 1 GM in D5W MINI-BAG PLUS 50 ML IV ONE (08:30)
[2019-12-24] MEDS ORDERED: MOM 30ML SUSPENSION UDC PO PRN (10:15)
[2019-12-24] MEDS ORDERED: MAALOX 30 ML SUSP *UDC PO PRN (10:15)
[2019-12-24] MEDS ORDERED: ACETAMINOPHEN TAB 650MG DOSE (2X325MG) PO PRN (10:15)
--- NOTE | 2019-12-24 10:29 | HPEPDOC ---
General Date of Admission Date of Service: December 24, 2019 Chief Complaint The patient is a 84-year-old male admitted with a reason for visit of Leg Pain. Source: Family, RN/MD, EMS, EMS notes reviewed Exam Limitations: Dementia Associated Symptoms: Unobtainable History of Present Illness This is a 84 years old white male with past medical history of Crohn's disease. Follows up with Dr. Carrillo on Humira also hyperlipidemia, non-Hodgkin's lymphoma of bone follows up with Dr. Boyer history of AK with stents and CABG, BPH, stage II coccyx coccyx wound was brought in by EMS as he was found lying on the floor by his daughter. Patient was found with abrasion to right hip and right knee and pain to left thigh but no bruises or deformities secondary to dementia. Patient is unable to give any detailed history. Patient's all old medical records and outpatient records were checked, discussed with the ED provider who wasn't constantly in touch with patient's family also reviewed patient's EMS records. Patient is confused, does not comprehend any question and is unable to give me any answers, but he is pleasant, non-agitated. Home Medications Scheduled Adalimumab (Humira) 40 Mg/0.8 Ml Kit, 40 MG SC QWEEK for , (Reported) MONDAYS Aspirin (Aspirin EC) 81 Mg Tabec, 81 MG PO DAILY, (Reported) Furosemide (Furosemide) 20 Mg Tab, 20 MG PO BID, (Reported) TAKES AT 0400 AND 1200 Ibuprofen (Ibu-200) 200 Mg Tablet, 200 MG PO QHS, (Reported) Loperamide HCl (Loperamide) 2 Mg Capsule, 2 MG PO BID, (Reported) Magnesium Chloride (Mag64) 64 Mg Tablet.dr, 64 MG PO DAILY, (Reported) Multivitamin with Folic Acid (Thera Tablet) 400 Mcg Tablet, 1 TAB PO DAILY, (Reported) Pravastatin Sodium (Pravachol) 20 Mg Tab, 20 MG PO QHS, (Reported) Zinc (Zinc) 50 Mg Tablet, 50 MG PO BID, (Reported) Scheduled PRN Nitroglycerin (Nitrostat) 0.3 Mg Subl, 0.3 MG SL NITRO PRN for CHEST PAIN, (Reported) Allergies Uncoded Allergies: narcotic (Adverse Reaction, Intermediate, PER DAUGHTER PATIENT BECOMES VERY COMBATIVE WITH NARCOTICS , 12/24/19) Past Medical History Medical History Crohn's disease on Humira follows up with Dr. Carrillo did had some ophthalmological side effects, hyperlipidemia, not allergic to sulfa lymphoma of bone follows up with Dr. Audi Contreras at [facility] and Dr. Smart's here, history of this AK, status post stents in 1980s. Follow liver Dr. Vu history of CABG, history of BPH, history of a stage II coccyx wound follows up with Dr. Champagne and some eye problems. 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 Oneill in 2018, cholecystectomy, small intestine resection. Vasectomy and a bowel obstruction Family History Unable to obtained and family history. Secondary to patient's mental status and dementia Social History * Smoker: other (unknown) Alcohol: other (, unknown) Drugs: other (, unknown) A-FIB/CHADSVASC A-FIB History Current/History of A-Fib/PAF?: No Review of Systems Constitutional: Reports: Other (, unable to obtained review of systems secondary to patient's mental status) Physical Examination General Exam: Positive: Other (awake, but does not comprehend questions. Pleasant) Eye Exam: Positive: PERRLA, Conjunctiva & lids normal ENT Exam: Positive: Atraumatic, Mucous membr. moist/pink Neck Exam: Positive: Supple Chest Exam: Positive: Other (decreased breath sounds bilaterally) Heart Exam: Positive: Rate Normal, Irregular Rhythm, Normal S1, Normal S2 Telemetry: Positive: PVCs Abdomen Exam: Positive: Normal bowel sounds, Soft Extremity Exam: Positive: Other (. Bilateral pedal edema. Positive) Skin Exam: Positive: Nl turgor and temperature Neuro Exam: Positive: Strength at 5/5 X4 ext, Sensation Intact, Cranial Nerves 3-12 NL Psych Exam: Positive: Other (unable to perform a psych exam) Vital Signs Vital Signs Date Time Temp Pulse Resp B/P (MAP) Pulse Ox O2 Delivery O2 Flow Rate FiO2 12/24/19 04:50 98.1 74 18 115/66 99 Room Air Laboratory Data Labs 24H Laboratory Tests 2 12/24/19 06:40: Total Bilirubin 0.6, Direct Bilirubin 0.2, Aspartate Amino Transf (AST/SGOT) 90H, Alanine Aminotransferase (ALT/SGPT) 18, Alkaline Phosphatase 119H, SG-Oen-C-Type Natriuretic Peptide 1448H, Total Protein 5.5L, Albumin 2.1L, Albumin/Globulin Ratio 0.62L 12/24/19 06:41: Immature Granulocyte % (Auto) 1.1, Neutrophils (%) (Auto) 80.4H, Lymphocytes (%) (Auto) 10.8L, Monocytes (%) (Auto) 7.5H, Eosinophils (%) (Auto) 0.0, Basophils (%) (Auto) 0.2, Neutrophils # (Auto) 10.4H, Lymphocytes # (Auto) 1.4L, Monocytes # (Auto) 1.0H, Eosinophils # (Auto) 0.0, Basophils # (Auto) 0.0, Nucleated Red Blood Cells % (auto) 0.0, Prothrombin Time 16.4H, Prothromb Time International Ratio 1.35, Activated Partial Thromboplast Time 34.2, Urine Color YELLOW, Urine Appearance CLOUDYH, Urine pH 5.0, Urine Specific [place] 1.019, Urine Protein NEGATIVE, Urine Glucose (UA) NEGATIVE, Urine Ketones NEGATIVE, Urine Blood 2+H, Urine Nitrite NEGATIVE, Urine Bilirubin NEGATIVE, Urine Urobilinogen 0.2, Urine Leukocyte Esterase 3+H, Urine WBC (Auto) 116H, Urine RBC (Auto) 12H, Urine Hyaline Casts (Auto) 1, Urine Bacteria (Auto) 1+H, Urine Squamous Epithelial Cells 1, Urine Amorphous Sediment SMALLH, Urine Granular Casts (Auto) 3, Urine Mucus (Auto) SMALL, Urine Sperm (Auto) , POC Glucose (Misc Panel) 109H, POC Sodium (Misc Panel) 136, POC Potassium (Misc Panel) 3.1L, POC Chloride (Misc Panel) 95L, POC Total CO2 (Misc Panel) 27.0, POC Blood Urea Nitrogen (Misc Panel 23, POC Ionized Calcium (Misc Panel) 4.0L, POC Creatinine (Misc Panel) 1.2, POC Hematocrit (Misc Panel) 34.0L, Total Creatine Kinase 560H, Creatine Kinase MB 6.9H, Creatine Kinase MB Relative Index 1.23, Troponin I < 0.02 12/24/19 06:45: POC Lactate (Misc Panel) 6.18*H 12/24/19 06:54: POC Lactate (Misc Panel) 4.50*H CBC/BMP Laboratory Tests 12/24/19 06:41 Microbiology Microbiology 12/24/19 Blood Culture, Received Pending 12/24/19 Blood Culture, Received Pending 12/24/19 Urine Culture, Received Pending Problems (1) Acute metabolic encephalopathy Status: Acute Problem Text: Acute metabolic encephalopathy secondary to worsening dementia secondary to urinary tract infection Patient is progressively improving. 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 Recommended (3) Non-Hodgkin's lymphoma of bone Status: Acute Problem Text: Stable. Follows up with his oncologist at [facility] (4) Lactic acidosis Status: Acute Problem Text: Most likely secondary to poor oral intake, dehydration and falls Patient did receive 1 L of fluid in the ED, but I will avoid given more fluids to patient secondary to history of CHF . We will repeat an echocardiogram to assess cardiac function again. Patient follows up with Dr. vu - outpatient (5) Afib Status: Chronic Problem Text: Patient EKG reviewed shows normal sinus rhythm with frequent PVCs Patient's EKG is not different from his previous EKGs His first troponin is negative. We'll repeat 2 more ab initio etl developer Home meds (6) CAD (coronary artery disease) Status: Chronic Problem Text: Stable. Continue home meds (7) HLD (hyperlipidemia) Status: Chronic Problem Text: Stable. Continue home meds (8) Ulcerative colitis Status: Chronic Problem Text: Patient follows with Dr. Carrillo and he is on Humira No symptoms at the present time (9) Fall Status: Acute Problem Text: Fall precautions PT elevation Possible placement Plan / VTE VTE Prophylaxis Ordered?: Yes IGLESIA POSADA MD December 24, 2019 10:29
[2019-12-24] MEDS ORDERED: HALOPERIDOL 5MG/ML VIAL (J1630 PER 1) IV PRN (10:30)
[2019-12-24] MEDS ORDERED: NITROGLYCERIN 0.3 MG SUBL TAB SL PRN (10:30)
[2019-12-24 12:00] VITALS: BP 99/69
[2019-12-24] MEDS: DOCUSATE SODIUM 100 MG CAP PO SCH ×2 (12:29→20:28)
[2019-12-24] MEDS: ASPIRIN 81 MG ENTERIC TAB PO SCH (12:29)
[2019-12-24] MEDS: HEPARIN SOD (PORCINE) 5000UNITS/ML VIAL (J1644 PER 1000UNITS) SC SCH ×2 (12:29→20:29)
[2019-12-24 14:00] VITALS: BP 105/67
--- NOTE | 2019-12-24 19:20 | ECGEPIP ---
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 Order Number: [id number] Reading MD: Bushra Ruelas Measurements Intervals [place] Rate: 93 P: 18 PA: 173 QRS: -18 QRSD: 97 T: 6 QT: 380 QTc: 475 Interpretive Statements SINUS RHYTHM WITH OCCASIONAL VENTRICULAR PREMATURE COMPLEXES WITH FREQUENT SUPRAVENTRICULAR PREMATURE COMPLEXES ABNORMAL RHYTHM ECG LEFTWARD AXIS PROLONGED QTC DELAYED R WAVE PROGRESSION NONSPECIFIC ST T WAVE CHANGES CW 08/24/[address] T WAVE CHANGES Electronically Signed on 12-24-2019 19:19:50 EDT by Bushra Ruelas
[2019-12-24] MEDS: PRAVASTATIN 20 MG TAB PO SCH (20:28)
[2019-12-24 22:00] VITALS: BP 150/97
[2019-12-25 06:00] VITALS: BP 114/63
[2019-12-25 06:31] LABS: HEMATOCRIT 30.9 % (42.0-52.0); MEAN CORPUSCULAR HEMOGLOBIN 27.2 pg (27.0-33.0); MEAN CORPUSCULAR HGB CONC 32.4 g/dl (32.0-36.5); MEAN CORPUSCULAR VOLUME 84.2 fl (80.0-96.0); PLATELET COUNT, AUTOMATED 213 10^3/uL (150-450); RED BLOOD COUNT 3.67 10^6/uL (4.30-6.10); WHITE BLOOD COUNT 8.3 10^3/uL (4.0-10.0)
[2019-12-25 07:16] LABS: ALBUMIN 1.8 GM/DL (3.2-5.2); ALT/SGPT 19 U/L (12-78); BILIRUBIN,TOTAL 0.5 MG/DL (0.2-1.0); BLOOD UREA NITROGEN 26 MG/DL (7-18); CALCIUM LEVEL 8.1 MG/DL (8.8-10.2); CARBON DIOXIDE LEVEL 29 MEQ/L (21-32); CHLORIDE LEVEL 101 MEQ/L (98-107); CREATININE FOR GFR 1.24 MG/DL (0.70-1.30); GLOMERULAR FILTRATION RATE 58.8 (>35); GLUCOSE, FASTING 78 MG/DL (70-100); MAGNESIUM LEVEL 1.6 MG/DL (1.8-2.4); POTASSIUM SERUM 3.2 MEQ/L (3.5-5.1); SODIUM LEVEL 139 MEQ/L (136-145); TOTAL PROTEIN 5.4 GM/DL (6.4-8.2); TROPONIN I < 0.02 NG/ML (< 0.10)
[2019-12-25] MEDS: ASPIRIN 81 MG ENTERIC TAB PO SCH (08:57)
[2019-12-25] MEDS: DOCUSATE SODIUM 100 MG CAP PO SCH ×2 (08:57→21:04)
[2019-12-25] MEDS: HEPARIN SOD (PORCINE) 5000UNITS/ML VIAL (J1644 PER 1000UNITS) SC SCH ×2 (08:57→21:07)
[2019-12-25] MEDS ORDERED: cefTRIAXone SOD 1 GM in D5W MINI-BAG PLUS 50 ML IV SCH (09:00)
[2019-12-25] MEDS ORDERED: MAG SULF 1GM/100ML (MAG RUN) 1 GM in IV 1 EA IV ONE (11:00)
[2019-12-25] MEDS: POTASSIUM CHLORIDE 10 MEQ SR TABLET PO SCH ×2 (11:08→21:07)
[2019-12-25] MEDS ORDERED: VARIBAR PUDDING 40% w/v 230ML TUBE As Ordered ONE (12:39)
[2019-12-25] MEDS ORDERED: VARIBAR NECTAR 40% w/v 240ML SUSP BTL As Ordered ONE (12:39)
[2019-12-25] MEDS ORDERED: E-Z-PAQUE 96% w/w SUSP 176GM BTL As Ordered ONE (12:40)
[2019-12-25] MEDS ORDERED: BARIUM SULFATE 700 MG TABLET (E-Z-DISK) As Ordered ONE (12:40)
[2019-12-25 14:00] VITALS: BP 136/72
--- NOTE | 2019-12-25 16:13 | REP ---
COOKIE SWALLOW The procedure was performed under the direct supervision of Dr. Diez. The procedure was performed with Emilia Richardson from speech pathology present. 5 ml aliquots of pudding, thin and honey consistency barium was administered. With thin consistency barium there is aspiration without cough response. With honey consistency barium there is laryngeal penetration. A detailed report of this examination will be provided by speech pathology. 1.2 minutes of fluoroscopy time was utilized for this procedure. Electronically Signed by NILSA Cooper 12/25/2019 03:17 P Electronically Signed by Rock Diez MD 12/25/2019 04:04 P
[2019-12-25] MEDS: PRAVASTATIN 20 MG TAB PO SCH (21:04)
--- NOTE | 2019-12-25 21:36 | IPN ---
DATE: 12/25/2019 Lauri seen on [facility] while rounding for the hospitalist, admitted with altered mental status. He is on chronic immunosuppressant therapy with Humira for Crohn's disease. Has a history of non-Hodgkin's lymphoma, history of coronary artery disease, coccygeal wound infection. He was found lying on the floor by the daughter. Had some elevated lactate on admission. Per nursing staff, it strengthened over the last 24 hours. He is now ready to start physical therapy. Initially thought to possibly have a urinary infection, but urine culture is negative. PHYSICAL EXAMINATION: 114/63, pulse 81, respiratory rate 16, 94% oxygen saturation. He is alert, conversant, pleasant. Appears well hydrated. No jugular venous distention (JVD). LUNGS: Clear. HEART: Regular rate and rhythm. A 1/6 systolic ejection murmur. ABDOMEN: Soft, nontender. No masses. No peripheral edema. LABORATORY DATA: White count 8.3, hemoglobin 10.0 (down from 11.4 after hydration), platelets 213. Sodium 139, potassium 3.2, BUN 26, creatinine 1.2, glucose 78, magnesium 1.6. IMPRESSION: 1. Elevated lactate, probably due to fall and prolonged time on the floor. There is no evidence of sepsis. Urine culture is negative. Blood cultures negative. Will stop the IV fluids. 2. Heart murmur. Echocardiogram is being done. 3. Immunosuppression with Humira for Crohn's disease. Blood and urine cultures are negative. Stop antibiotics. Observe off from this. 4. History of atrial fibrillation. Heart rate seems regular today. He follows with Dr. Calvin as outpatient. Echocardiogram is being done today. Will get a home safety evaluation tomorrow. He might be stable for discharge tomorrow.
[2019-12-25 22:00] VITALS: BP 131/74
[2019-12-26 06:00] VITALS: BP 129/79
[2019-12-26 06:02] LABS: HEMATOCRIT 31.6 % (42.0-52.0); MEAN CORPUSCULAR HGB CONC 31.6 g/dl (32.0-36.5); MEAN CORPUSCULAR VOLUME 85.4 fl (80.0-96.0); PLATELET COUNT, AUTOMATED 214 10^3/uL (150-450)
[2019-12-26 06:29] LABS: BLOOD UREA NITROGEN 25 MG/DL (7-18); CALCIUM LEVEL 8.1 MG/DL (8.8-10.2); CARBON DIOXIDE LEVEL 31 MEQ/L (21-32); CHLORIDE LEVEL 105 MEQ/L (98-107); CREATININE FOR GFR 1.17 MG/DL (0.70-1.30); GLOMERULAR FILTRATION RATE > 60.0 (>35); GLUCOSE, FASTING 78 MG/DL (70-100); MAGNESIUM LEVEL 2.2 MG/DL (1.8-2.4); POTASSIUM SERUM 4.1 MEQ/L (3.5-5.1); SODIUM LEVEL 143 MEQ/L (136-145)
--- NOTE | 2019-12-26 06:47 | ECHO ---
DATE OF PROCEDURE: 12/25/2019 DATE OF : 1935 AGE: 84 GENDER: Male HEIGHT: 75 inches WEIGHT: 216 pounds BODY SURFACE AREA: 2.26 meters squared INPATIENT: 4 [facility] - Room 4227 REFERRING PHYSICIAN: Dr. Barone INDICATION: Edema. MEASUREMENTS 2-D Measurements: RV: 3.2 cm LV: 4.0 cm Septum: 0.9 cm Posterior wall: 0.9 cm Aortic root: 3.6 cm LA: 3.6 cm LVEF: 60% Doppler Measurements: ,AV: 1.5 m/s LVOT: 0.7 m/s LVOT diameter: 1.8 cm MV - E 45 A 71 EA ratio 0.6 Early mitral deceleration time: 222 ms E prime medial 8.2 A prime medial: 12 E prime lateral: 6.3 Average E/E prime ratio 6.2/PCWP 9.6 mmHg PV: 1.0 m/s Pulmonary artery acceleration time: 102 ms RVSP: 35 mmHg IVC: 1.6 cm COMMENTS: Normal sinus rhythm without intraventricular conduction disturbance. Occasional to frequent PACs. Slightly technically challenging study in light of the patient's body habitus, but diagnostically useful information was still obtained. M-mode and two-dimensional echocardiography was performed with pulsed, continuous wave, color flow and tissue Doppler studies. Normal left ventricular size and wall thickness with proximal inferior akinesis, but other wall motion was normal to hyperkinetic. Preserved global resting systolic function. Normal left atrial size with grade 1 LV diastolic dysfunction, but currently normal estimated mean left atrial pressure. Normal right heart chamber sizes and motion with estimated pulmonary arterial pressure mildly increased. Normal inferior vena cava diameter and respiratory collapse against an elevated central venous pressure. Subtle aortic valvular sclerosis without stenosis or insufficiency. Normal aortic dimensions. Mildly thickened mitral annulus, but normal leaflet thickness and excursion with no functional valvular abnormality. Normal appearing tricuspid valve with mild tricuspid insufficiency. No apparent intracardiac mass or pericardial effusion.
[2019-12-26] MEDS: DOCUSATE SODIUM 100 MG CAP PO SCH ×2 (10:05→10:12)
[2019-12-26] MEDS: HEPARIN SOD (PORCINE) 5000UNITS/ML VIAL (J1644 PER 1000UNITS) SC SCH ×2 (10:12→20:59)
[2019-12-26] MEDS: ASPIRIN 81 MG ENTERIC TAB PO SCH (10:12)
[2019-12-26] MEDS ORDERED: NS 500 ML IV ONE (10:15)
[2019-12-26] MEDS: POTASSIUM CHLORIDE 10 MEQ SR TABLET PO SCH ×2 (10:31→20:55)
--- NOTE | 2019-12-26 13:16 | IPNPDOC ---
Date Seen The patient was seen on 12/26/19. Progress Note SUBJECTIVE: Patient is a 84yM with PMH of Crohn's disease complicated by chronic immunosuppressant therapy with Humira, history of non-Hodgkin's lymphoma, history of CAD, coccygeal wound infection presented with encephalopathy, thought to be secondary to UTI. Urine cultures were negative. Patient had no overnight events. He was noted that patient's heart rate is ranging from 130-160s, BP stable, bolus 500cc ND x1, no hx noted of CHF but on home diuretics thought to be s econdary to her extremity edema. Due to deconditioning, patient had PT eval. Blood cultures 2 on 12/24/2019 were negative, urine culture on 12/24/2019 also negative for any growth. OBJECTIVE PHYSICAL EXAMINATION: VITAL SIGNS: Please see below. GENERAL: No distress, hard of hearing HEENT: Normocephalic, atraumatic, moist mucous membranes NECK: Supple CARDIOVASCULAR EXAMINATION: S1, S2 RESPIRATORY EXAMINATION: CTAB ABDOMINAL EXAMINATION: Soft, nontender, nondistended, positive bowel sounds EXTREMITIES: +edema SKIN: No rash NEUROLOGICAL EXAMINATION: Alert and oriented 2, not oriented to time PSYCHIATRIC EXAMINATION: Calm and cooperative, appropriate affect LABORATORY DATA, IMAGING STUDIES, MICROBIOLOGY: Please see below. ASSESSMENT AND PLAN: Patient is a 84yM with PMH of Crohn's disease complicated by chronic immunosuppressant therapy with Humira, history of non-Hodgkin's lymphoma, history of CAD, coccygeal wound infection presented with encephalopathy, thought to be secondary to UTI. Urine cultures were negative. #Encephalopathy, consider delirium with underlying dementia, back to baseline #Crohns disease: Hold home Adalimumab, resume home loperamide 2mg BID #CAD: Continue home aspirin #LE edema: Continue home Lasix 20 mg daily #Chronic pain: hold home ibuprofen 200mg QHS DVT PPI. Ex: Heparin DNR/DNI Disposition: Rehabilitation versus home health. DC 12/27/2019 32 minutes were spent on care coordination VS, I&O, 24H, Fishbone Vital Signs/I&O Vital Signs Date Time Temp Pulse Resp B/P (MAP) Pulse Ox O2 Delivery O2 Flow Rate FiO2 12/26/19 06:00 97.4 91 17 129/79 (96) 97 Room Air I&O- Last 24 Hours up to 6 AM 12/26/19 05:59 Intake Total 170 ml Output Total 200 ml Balance -30 ml Laboratory Data 24H LABS Laboratory Tests 2 12/26/19 05:33: Nucleated Red Blood Cells % (auto) 0.0, Anion Gap 7L, Glomerular Filtration Rate > 60.0, Calcium Level 8.1L, Magnesium Level 2.2 CBC/BMP Laboratory Tests 12/26/19 05:33 Microbiology Microbiology 12/24/19 Blood Culture - Preliminary, Resulted No Growth after 48 hours. All Specime... 12/24/19 Blood Culture - Preliminary, Resulted No Growth after 48 hours. All Specime... 12/24/19 Urine Culture - Final, Complete GELA SHARP MD December 26, 2019 13:16
[2019-12-26 14:00] VITALS: BP 126/76
[2019-12-26] MEDS: METOPROLOL TART 12.5 MG PER 1/2 TAB PO SCH ×2 (14:19→20:58)
[2019-12-26] MEDS: FUROSEMIDE 20 MG TAB PO SCH (14:19)
[2019-12-26] MEDS ORDERED: DOCUSATE SODIUM 100 MG CAP PO PRN (19:45)
[2019-12-26] MEDS: LOPERAMIDE 2 MG CAPLET PO SCH (20:57)
[2019-12-26] MEDS: PRAVASTATIN 20 MG TAB PO SCH (20:59)
[2019-12-26 22:00] VITALS: BP 121/61
[2019-12-27 06:00] VITALS: BP 122/64
[2019-12-27] MEDS: LOPERAMIDE 2 MG CAPLET PO SCH ×2 (09:35→21:15)
[2019-12-27] MEDS: ASPIRIN 81 MG ENTERIC TAB PO SCH (09:35)
[2019-12-27] MEDS: METOPROLOL TART 12.5 MG PER 1/2 TAB PO SCH ×2 (09:35→21:14)
[2019-12-27] MEDS: POTASSIUM CHLORIDE 10 MEQ SR TABLET PO SCH ×2 (09:36→21:15)
[2019-12-27] MEDS: HEPARIN SOD (PORCINE) 5000UNITS/ML VIAL (J1644 PER 1000UNITS) SC SCH ×2 (09:36→21:15)
[2019-12-27] MEDS: FUROSEMIDE 20 MG TAB PO SCH (09:37)
[2019-12-27 14:00] VITALS: BP 136/83
--- NOTE | 2019-12-27 14:58 | REP ---
REASON FOR EXAM: History of ulcerative colitis. The lack of intravenous contrast significantly decreases the sensitivity of the exam. The latest prior for comparison is 05/11/2019. Calcific granulomatous changes are seen in the liver and spleen. There is significant artifact seen throughout the exam secondary to the patient's arm strewn across the lower abdomen. There is low density bilateral adrenal gland thickening with a right adrenal gland low density nodule status quo. There is pancreatic fatty infiltration and atrophy status quo. There is an unchanged right renal cyst. There are left renal cysts and there is left hydronephrosis which has developed since the last exam. The hydronephrosis is seen along with hydroureter which is tortuous and difficult to evaluate in the pelvis due to spray artifact arising from bilateral hip prosthesis. I see no definite ureteroliths or nephroliths on either side. There is an infrarenal abdominal aortic aneurysm which measures 3.4 cm and is unchanged from the prior exam. There is no free fluid or free air in the abdomen. Mildly dilated gas-filled small bowel loops are seen in the abdomen. CT PELVIS: The intrapelvic contents are seen in a limited fashion due to spray artifact. No gross abnormalities are noted. Bone window technique throughout the exam shows chronic osseous changes status quo with bony demineralization, spinal degenerative change along with bilateral sacroiliac degenerative changes and bilateral hip prostheses. IMPRESSION: 1. New left-sided hydronephrosis and hydroureter, etiology uncertain. Urological consultation is suggested. 2. Mild small bowel ileus. 3. Other findings and chronic changes as described above. Electronically Signed by Gonzales Augustin DO 12/27/2019 03:55 P
--- NOTE | 2019-12-27 15:21 | REP ---
REASON FOR EXAM: Followup. Latest prior for comparison is 08/29/2018. The lack of intravenous contrast decreases the sensitivity of the exam. The mediastinum and pulmonary blanca are unchanged. The tiny left pleural effusion seen previously has resolved. There is a minimal right pleural effusion. There is no pericardial effusion. Bone window technique throughout the examination shows no significant change in the appearance of the imaged osseous structures. Evaluation of the lung case again show much chronic changes status quo. There is respiratory motion artifact obscuring the detail particularly in the mid and lower lung zone regions. This could obscure a significant nodule. Note is again made of calcified granuloma status quo. These are incidental. There is biapical pleuroparenchymal scarring status quo. There are a few irregular densities in the lung periphery bilaterally difficult to evaluate due to motion artifact likely representing chronic changes. IMPRESSION: Chronic changes and other findings as described above with exam limitations. Electronically Signed by Gonzales Augustin DO 12/27/2019 03:56 P
[2019-12-27] MEDS ORDERED: NS 1,000 ML IV SCH (18:20)
--- NOTE | 2019-12-27 18:32 | IPNPDOC ---
Date Seen The patient was seen on 12/27/19. Progress Note SUBJECTIVE: SUBJECTIVE: Patient is a 84yM with PMH of Crohn's disease complicated by chronic immunosuppressant therapy with Humira, history of non- Hodgkin's lymphoma, history of CAD, coccygeal wound infection presented with encephalopathy, thought to be secondary to UTI. Urine cultures were negative. Patient had no overnight events. He was noted that patient's heart rate is ranging from 130-160s, BP stable, bolus 500cc ND x1, no hx noted of CHF but on home diuretics thought to be secondary to her extremity edema. Due to deconditioning, patient had PT eval. Blood cultures 2 on 12/24/2019 were negative, urine culture on 12/24/2019 also negative for any growth. Patient's labs were Potassium improved to 4.1, creatinine 1.17, CBC stable. She generalized weakness. I obtained a CT chest, abdomen, pelvis, and he was found to have left-sided hydronephrosis and I dagoberto ureter. I also speak with his daughter, Maria E regards to discharge planning. OBJECTIVE PHYSICAL EXAMINATION: VITAL SIGNS: Please see below. GENERAL: No distress, hard of hearing HEENT: Normocephalic, atraumatic, moist mucous membranes NECK: Supple CARDIOVASCULAR EXAMINATION: S1, S2 RESPIRATORY EXAMINATION: CTAB ABDOMINAL EXAMINATION: Soft, nontender, nondistended, positive bowel sounds EXTREMITIES: +edema SKIN: No rash NEUROLOGICAL EXAMINATION: Awake but fatigued PSYCHIATRIC EXAMINATION: Calm and cooperative, appropriate affect LABORATORY DATA, IMAGING STUDIES, MICROBIOLOGY: Please see below. ASSESSMENT AND PLAN: Patient is a 84yM with PMH of Crohn's disease complicated by chronic immunosuppressant therapy with Humira, history of non-Hodgkin's lymphoma, history of CAD, coccygeal wound infection presented with encephalopathy, thought to be secondary to UTI. Urine cultures were negative. #Left hydronephrosis versus Hydroureter: Consult should urology, consider nephrolithiasis versus ureterolithiasis, nothing by mouth at midnight for possible cystoscopy, if no change in clinical status #Encephalopathy, consider delirium with underlying dementia, back to baseline #Crohns disease: Hold home Adalimumab, resume home loperamide 2mg BID #CAD: Continue home aspirin #LE edema: Continue home Lasix 20 mg daily #Chronic pain: hold home ibuprofen 200mg QHS DVT PPI. Ex: Heparin DNR/DNI Disposition: Rehabilitation versus home health. DC 12/28/2019, family provide 2 assist, home PT, etc. 40 minutes were spent on care coordination 32 minutes were spent on care coordination VS, I&O, 24H, Fishbone Vital Signs/I&O Vital Signs Date Time Temp Pulse Resp B/P (MAP) Pulse Ox O2 Delivery O2 Flow Rate FiO2 12/27/19 14:00 97.3 89 18 136/83 (100) 98 Room Air I&O- Last 24 Hours up to 6 AM 12/27/19 06:00 Intake Total 950 ml Output Total 100 ml Balance 850 ml Laboratory Data Microbiology Microbiology 12/24/19 Blood Culture - Preliminary, Resulted No Growth after 72 hours. All specime... 12/24/19 Blood Culture - Preliminary, Resulted No Growth after 72 hours. All specime... 12/24/19 Urine Culture - Final, Complete GELA SHARP MD December 27, 2019 18:32
[2019-12-27] MEDS: PRAVASTATIN 20 MG TAB PO SCH (21:15)
[2019-12-27 22:00] VITALS: BP 138/90
[2019-12-28] VITALS (10 sets, daily range): BP systolic 118–132; BP diastolic 63–76
[2019-12-28 06:38] LABS: HEMATOCRIT 32.3 % (42.0-52.0); MEAN CORPUSCULAR HEMOGLOBIN 26.6 pg (27.0-33.0); MEAN CORPUSCULAR VOLUME 85.9 fl (80.0-96.0); PLATELET COUNT, AUTOMATED 223 10^3/uL (150-450); RED BLOOD COUNT 3.76 10^6/uL (4.30-6.10); WHITE BLOOD COUNT 7.7 10^3/uL (4.0-10.0)
[2019-12-28 07:02] LABS: BLOOD UREA NITROGEN 27 MG/DL (7-18); CALCIUM LEVEL 8.5 MG/DL (8.8-10.2); CARBON DIOXIDE LEVEL 26 MEQ/L (21-32); CHLORIDE LEVEL 109 MEQ/L (98-107); CREATININE FOR GFR 1.15 MG/DL (0.70-1.30); GLOMERULAR FILTRATION RATE > 60.0 (>35); GLUCOSE, FASTING 84 MG/DL (70-100); POTASSIUM SERUM 4.9 MEQ/L (3.5-5.1); SODIUM LEVEL 146 MEQ/L (136-145)
--- NOTE | 2019-12-28 08:38 | SMCUROLCON ---
Urology Consultation General Date of Consultation 12/28/19 Reason For Consultation This patient is seen for Fall,Uti. History of Present Illness This is an 84 y/o M w/ a PMH significant for Crohn's disease, HL, non-Hodgkin's lymphoma, CAD (s/p stents and CABG), and BPH, admitted a few days ago for acute metabolic encephalopathy. This was initially thought to be due to a UTI but his culture is negative. A CT A/P was obtained yesterday to investigate other possible causes of his AMS, and it was notable for moderate L hydroureteronephrosis down to the distal ureter. The cause of the hydro could not be determined due to artifact on the CT. We were consulted for eval and treatment. Past Medical History Medical History see HPI Surgical Hstory see HPI Medications Current Medications Current Medications Medications (Trade) Dose Ordered Sig/Abiodun Route PRN Reason Start Time Stop Time Status Last Admin Dose Admin Acetaminophen (Tylenol Tab) 650 mg Q4H PRN PO PAIN OR FEVER 12/24/19 10:15 Al Hydrox/Mg Hydrox/Simethicone (Mylanta) 30 ml DAILY PRN PO DYSPEPSIA 12/24/19 10:15 Aspirin (Ecotrin) 81 mg DAILY PO 12/24/19 09:00 12/27/19 09:35 Ceftriaxone Sodium 1 gm/ Dextrose 50 ml @ 100 mls/hr Q24H IV 12/25/19 09:00 12/25/19 14:37 DC 12/25/19 08:57 Docusate Sodium (Colace) 100 mg BID PO 12/24/19 09:00 12/26/19 19:34 DC 12/26/19 10:12 Docusate Sodium (Colace) 100 mg BID PRN PO CONSTIPATION 12/26/19 19:45 Furosemide (Lasix) 20 mg DAILY PO 12/26/19 13:15 12/27/19 09:37 Haloperidol (Haldol) 1 mg Q6HP PRN IV AGITATION 12/24/19 10:30 Heparin Sodium (Porcine) (Heparin) 5,000 units Q12H SC 12/24/19 09:00 12/27/19 21:15 Home Med (Med Rec Complete!) ASDIRECTED XX 12/24/19 06:45 12/24/19 06:48 DC Loperamide HCl (Imodium) 2 mg BID PO 12/26/19 21:00 12/27/19 21:15 Magnesium Hydroxide (Milk Of Magnesia) 30 ml DAILY PRN PO CONSTIPATION 12/24/19 10:15 Metoprolol Tartrate (Lopressor) 12.5 mg BID PO 12/26/19 14:15 12/27/19 21:14 Nitroglycerin (Nitrostat (1/ 200)) 0.3 mg ASDIRECTED PRN SL CHEST PAIN 12/24/19 10:30 Potassium Chloride (Micro-K Extencaps) 40 meq BID PO 12/25/19 09:00 12/27/19 21:15 Pravastatin Sodium (Pravachol) 20 mg QHS PO 12/24/19 21:00 12/27/19 21:15 Sodium Chloride 1,000 ml @ 10 mls/hr Q24H IV 12/27/19 18:20 12/27/19 18:32 Allergies Allergies: Coded Allergies: Unclassified (Verified Adverse Reaction, Mild, ALL NARCOTICS MAKE PATIENT COMBATIVE PER PT'S DAUGHTER, 12/24/19) Review of Systems General: Reports: ROS Unobtainable Physical Examination General Exam: Cooperative, No Acute Distress Chest Exam: Normal air movement Heart Exam: Rate Normal Abdomen Exam: Soft; No: Tenderness Skin Exam: Nl turgor and temperature Psych Exam: Mood NL Vital Signs/I&O Vital Signs Date Time Temp Pulse Resp B/P (MAP) Pulse Ox O2 Delivery O2 Flow Rate FiO2 12/28/19 06:00 97.6 89 16 132/69 (90) 94 Room Air I&O- Last 24 Hours up to 6 AM 12/28/19 06:00 Intake Total 340 ml Balance 340 ml Laboratory Data 24H Labs Laboratory Tests 2 12/28/19 06:18: Nucleated Red Blood Cells % (auto) 0.0, Anion Gap 11, Glomerular Filtration Rate > 60.0, Calcium Level 8.5L CBC/BMP Laboratory Tests 12/28/19 06:18 Microbiology Microbiology 12/24/19 Blood Culture - Preliminary, Resulted No Growth after 72 hours. All specime... 12/24/19 Blood Culture - Preliminary, Resulted No Growth after 72 hours. All specime... 12/24/19 Urine Culture - Final, Complete Assessment This is an 84 y/o M admitted for encephalopathy, now found to have moderate L hydroureteronephrosis. The cause of obstruction cannot be determined based on CT scan. If there is complete obstruction it is possible that he has an infection above the level of obstruction. There is moderate stranding around the kidney on CT. I recommend that we take him to the OR for cysto, L ureteroscopy w/ possible laser lithotripsy, L ureteral stent placement. Informed consent was obtained over the phone from the patient's daughter and healthcare proxy, Maria E Rosado. Plan - plan surgery this morning - NPO - 2g ancef IV OCOR - may resume regular diet postop APRIL LAMAR MD December 28, 2019 08:37
[2019-12-28] MEDS: ASPIRIN 81 MG ENTERIC TAB PO SCH (09:00)
[2019-12-28] MEDS: HEPARIN SOD (PORCINE) 5000UNITS/ML VIAL (J1644 PER 1000UNITS) SC SCH ×2 (09:00→21:57)
[2019-12-28] MEDS: METOPROLOL TART 12.5 MG PER 1/2 TAB PO SCH ×2 (09:00→20:44)
[2019-12-28] MEDS: LOPERAMIDE 2 MG CAPLET PO SCH ×2 (09:00→20:10)
[2019-12-28] MEDS: FUROSEMIDE 20 MG TAB PO SCH (09:00)
[2019-12-28] MEDS: POTASSIUM CHLORIDE 10 MEQ SR TABLET PO SCH ×2 (09:00→20:10)
[2019-12-28] MEDS ORDERED: ceFAZolin SOD 2 GM in IV 1 EA IV ONE (09:45)
[2019-12-28] MEDS ORDERED: fentaNYL 100 MCG/2 ML INJECTION (J3010) As Ordered ONE (09:56)
[2019-12-28] MEDS ORDERED: LIDOCAINE 2% 100MG/5ML SDV (FOR ANES.) As Ordered ONE (09:56)
[2019-12-28] MEDS ORDERED: propofoL 200 MG/20 ML VIAL As Ordered ONE (09:56)
[2019-12-28] MEDS ORDERED: ONDANSETRON 4MG/2ML VIAL As Ordered ONE (09:57)
[2019-12-28] MEDS ORDERED: dexameTHASONE 4 MG/ML 1ML VIAL (J1100 PER 1MG) As Ordered ONE (09:57)
[2019-12-28] MEDS ORDERED: CONRAY-60 60% 50ML VIAL (Q9961) As Ordered ONE (10:21)
[2019-12-28] MEDS ORDERED: ceFAZolin 2 GM/D5W 50 ML IV BAG (J0690 PER 500MG) As Ordered ONE (10:25)
[2019-12-28] MEDS ORDERED: ONDANSETRON 4MG/2ML VIAL IV PRN (11:30)
[2019-12-28] MEDS ORDERED: fentaNYL 100 MCG/2 ML INJECTION (J3010) IV PRN (11:30)
[2019-12-28] MEDS ORDERED: METOCLOPRAMIDE INJ 10MG/2ML VIAL (J2765 PER 1) IV PRN (11:30)
[2019-12-28] MEDS ORDERED: LR 1,000 ML IV SCH (11:30)
--- NOTE | 2019-12-28 11:35 | REP ---
C-ARM VIEWS DURING LEFT URETERAL STENT PLACEMENT: Multiple views of the abdomen and pelvis were performed during placement of a left ureteral stent. Left pelvicaliceal system is partially opacified with contrast. There is contrast material in the colon. Left ureteral stent is placed. The proximal end is coiled in the left renal pelvis. The distal end is coiled in the urinary bladder. 22 seconds of fluoroscopy time utilized. Electronically Signed by Rock Diez MD 12/28/2019 12:55 P
--- NOTE | 2019-12-28 15:36 | IPNPDOC ---
Date Seen The patient was seen on 12/28/19. Progress Note SUBJECTIVE: SUBJECTIVE: Patient is a 84yM with PMH of Crohn's disease complicated by chronic immunosuppressant therapy with Humira, history of non- Hodgkin's lymphoma, history of CAD, coccygeal wound infection presented with encephalopathy, thought to be secondary to UTI. Urine cultures were negative. He was noted that patient's heart rate is ranging from 130-160s, BP stable, bolus 500cc ND x1, no hx noted of CHF but on home diuretics thought to be secondary to lower extremity edema. Due to deconditioning, patient had PT eval. Due to worsening generalized weakness, CT chest, abdomen, pelvis, was obtained and he was found to have left-sided hydronephrosis and I dagoberto ureter. Urology was consulted and pt had cystoscopy performed 12/28/19. POD#0 (12/28/19), cystoscopy with Dr. Mcdonald. Upon speech therapy evaluation, patient's for nothing by mouth with reevaluation the a.m., will start IV fluids. OBJECTIVE PHYSICAL EXAMINATION: VITAL SIGNS: Please see below. GENERAL: No distress, hard of hearing HEENT: Normocephalic, atraumatic, moist mucous membranes NECK: Supple CARDIOVASCULAR EXAMINATION: S1, S2 RESPIRATORY EXAMINATION: CTAB ABDOMINAL EXAMINATION: Soft, slight tenderness to palpation on L, positive bowel sounds EXTREMITIES: +edema SKIN: No rash NEUROLOGICAL EXAMINATION: Awake but fatigued PSYCHIATRIC EXAMINATION: Calm and cooperative, appropriate affect LABORATORY DATA, IMAGING STUDIES, MICROBIOLOGY: Please see below. ASSESSMENT AND PLAN: Patient is a 84yM with PMH of Crohn's disease complicated by chronic immunosuppressant therapy with Humira, history of non-Hodgkin's lymphoma, history of CAD, coccygeal wound infection presented with encephalopathy, thought to be secondary to UTI. Urine cultures were negative. #Left hydronephrosis versus Hydroureter: Consult should urology, consider nephrolithiasis versus ureterolithiasis, nothing by mouth at midnight for possible cystoscopy, if no change in clinical status #Encephalopathy, consider delirium with underlying dementia, back to baseline #Dysphagia, could be secondary to underlying dementia, we'll make nothing by mouth, follow-up with speech therapy tomorrow, IVF. #Crohns disease: Hold home Adalimumab, resume home loperamide 2mg BID #CAD: Continue home aspirin #LE edema: Continue home Lasix 20 mg daily #Chronic pain: hold home ibuprofen 200mg QHS DVT PPI. Ex: Heparin DNR/DNI Disposition: earliest anticipated DC home on 12/29/2019, family can provide 2 assist, home PT, etc. 32 minutes were spent on care coordination VS, I&O, 24H, Fishbone Vital Signs/I&O Vital Signs Date Time Temp Pulse Resp B/P (MAP) Pulse Ox O2 Delivery O2 Flow Rate FiO2 12/28/19 15:00 96.5 81 18 118/76 (90) 97 Room Air 12/28/19 11:53 2 I&O- Last 24 Hours up to 6 AM 12/28/19 06:00 Intake Total 340 ml Balance 340 ml Laboratory Data 24H LABS Laboratory Tests 2 12/28/19 06:18: Nucleated Red Blood Cells % (auto) 0.0, Anion Gap 11, Glomerular Filtration Rate > 60.0, Calcium Level 8.5L CBC/BMP Laboratory Tests 12/28/19 06:18 Microbiology Microbiology 12/28/19 Urine Culture, Received Pending 12/24/19 Blood Culture - Preliminary, Resulted No Growth after 72 hours. All specime... 12/24/19 Blood Culture - Preliminary, Resulted No Growth after 72 hours. All specime... 12/24/19 Urine Culture - Final, Complete GELA SHARP MD December 28, 2019 15:36
[2019-12-28] MEDS: D5W/0.45% SODIUM CHLORIDE 1,000 ML IV SCH (16:14)
[2019-12-28] MEDS: PRAVASTATIN 20 MG TAB PO SCH (20:10)
[2019-12-29] VITALS (7 sets, daily range): BP systolic 118–130; BP diastolic 63–81
[2019-12-29] MEDS: D5W/0.45% SODIUM CHLORIDE 1,000 ML IV SCH ×2 (05:29→18:31)
[2019-12-29 06:04] LABS: HEMOGLOBIN 9.7 g/dl (13.5-17.5); MEAN CORPUSCULAR HEMOGLOBIN 26.6 pg (27.0-33.0); MEAN CORPUSCULAR HGB CONC 30.3 g/dl (32.0-36.5); MEAN CORPUSCULAR VOLUME 87.7 fl (80.0-96.0); PLATELET COUNT, AUTOMATED 216 10^3/uL (150-450); RED BLOOD COUNT 3.65 10^6/uL (4.30-6.10); WHITE BLOOD COUNT 8.8 10^3/uL (4.0-10.0)
[2019-12-29 06:36] LABS: BLOOD UREA NITROGEN 32 MG/DL (7-18); CALCIUM LEVEL 8.6 MG/DL (8.8-10.2); CARBON DIOXIDE LEVEL 25 MEQ/L (21-32); CHLORIDE LEVEL 109 MEQ/L (98-107); CREATININE FOR GFR 1.17 MG/DL (0.70-1.30); GLOMERULAR FILTRATION RATE > 60.0 (>35); GLUCOSE, FASTING 99 MG/DL (70-100); POTASSIUM SERUM 4.5 MEQ/L (3.5-5.1); SODIUM LEVEL 144 MEQ/L (136-145)
--- NOTE | 2019-12-29 08:59 | IPNPDOC ---
Subjective Review oF Systems Chief Complaint The patient is a 84-year-old male admitted with a reason for visit of Fall,Uti. Events since Last Encounter No acute events o/n. Objective Physical Examination General Exam: Cooperative Heart Exam: Positive: Normal S1 ABDOMEN EXAM: Soft Skin Exam: Nl turgor and temperature Other physical findings catheter draining yellow urine Vital Signs/I&O Vital Signs Date Time Temp Pulse Resp B/P (MAP) Pulse Ox O2 Delivery O2 Flow Rate FiO2 12/29/19 06:00 97.7 76 18 120/64 (82) 95 Room Air 12/28/19 11:53 2 I&O- Last 24 Hours up to 6 AM 12/29/19 05:59 Intake Total 1460 ml Output Total 475 ml Balance 985 ml Laboratory Data Labs 24H Laboratory Tests 2 12/29/19 05:43: Nucleated Red Blood Cells % (auto) 0.0, Anion Gap 10, Glomerular Filtration Rate > 60.0, Calcium Level 8.6L CBC/BMP Laboratory Tests 12/29/19 05:43 Microbiology Microbiology 12/28/19 Urine Culture, Received Pending 12/24/19 Blood Culture - Preliminary, Resulted No Growth after 72 hours. All specime... 12/24/19 Blood Culture - Final, Complete NO GROWTH AFTER 5 DAYS 12/24/19 Urine Culture - Final, Complete Assessment/Plan Date Seen The patient was seen on 12/29/19. Patient Summary This is an 84 y/o M admitted w/ AMS, POD1 s/p cysto, left ureteral dilation, and left ureteral stent placement for a distal left ureteral stricture. Plan/VTE VTE Prophylaxis Ordered?: Yes VTE Exclusion Mechanical Proph: N/A:VTE Prophy Ordered Plan/Urinary Catheter Urinary Catheter: D/C Griggs Plan - d/c Griggs - ok for discharge home from urologic standpoint - will arrange f/u for cysto and stent removal in office in 3-4 wks APRIL LAMAR MD December 29, 2019 08:59
[2019-12-29] MEDS: FUROSEMIDE 20 MG TAB PO SCH (10:53)
[2019-12-29] MEDS: LOPERAMIDE 2 MG CAPLET PO SCH ×2 (10:53→21:19)
[2019-12-29] MEDS: ASPIRIN 81 MG ENTERIC TAB PO SCH (10:53)
[2019-12-29] MEDS: METOPROLOL TART 12.5 MG PER 1/2 TAB PO SCH ×2 (10:53→21:22)
[2019-12-29] MEDS: POTASSIUM CHLORIDE 10 MEQ SR TABLET PO SCH ×2 (10:54→21:18)
[2019-12-29] MEDS: HEPARIN SOD (PORCINE) 5000UNITS/ML VIAL (J1644 PER 1000UNITS) SC SCH ×2 (10:54→21:20)
--- NOTE | 2019-12-29 12:13 | IPNPDOC ---
Date Seen The patient was seen on 12/29/19. Progress Note SUBJECTIVE: Patient is a 84yM with PMH of Crohn's disease complicated by chronic immunosuppressant therapy with Humira, history of non-Hodgkin's lymphoma, history of CAD, coccygeal wound infection presented with encephalopathy, thought to be secondary to UTI. Urine cultures were negative. He was noted that patient's heart rate is ranging from 130-160s, BP stable, bolus 500cc ND x1, no hx noted of CHF but on home diuretics thought to be secondary to lower extremity edema. Due to deconditioning, patient had PT eval. Due to worsening generalized weakness, CT chest, abdomen, pelvis, was obtained and he was found to have left- sided hydronephrosis and I dagoberto ureter. Urology was consulted and pt had cystoscopy performed 12/28/19. POD#1 (12/28/19), cystoscopy, L ureter dilation and stent placement with Dr. Mcdonald. Upon speech therapy evaluation, patient's for nothing by mouth with reevaluation the a.m., will start IV fluids. Patient is requiring to assess, still nothing by mouth, tolerated by mouth medications, heart rate slightly elevated, discussed with Dr. Kaplan, repeat EKG showing sinus rhythm with PVCs, continue current management with metoprolol 12.5 mg twice a day. Pending speech therapy recommendations on by mouth diet. OBJECTIVE PHYSICAL EXAMINATION: VITAL SIGNS: Please see below. GENERAL: No distress, hard of hearing HEENT: Normocephalic, atraumatic, moist mucous membranes NECK: Supple CARDIOVASCULAR EXAMINATION: S1, S2 RESPIRATORY EXAMINATION: CTAB ABDOMINAL EXAMINATION: Soft, slight tenderness to palpation on L, positive bowel sounds EXTREMITIES: +edema SKIN: No rash NEUROLOGICAL EXAMINATION: Awake but fatigued PSYCHIATRIC EXAMINATION: Calm and cooperative, appropriate affect LABORATORY DATA, IMAGING STUDIES, MICROBIOLOGY: Please see below. ASSESSMENT AND PLAN: Patient is a 84yM with PMH of Crohn's disease complicated by chronic immunosuppressant therapy with Humira, history of non-Hodgkin's lymphoma, history of CAD, coccygeal wound infection presented with encephalopathy, thought to be secondary to UTI. Urine cultures were negative. #Deconditioning, will need PT, became tachycardic upon ambulation, EKG reveals normal sinus rhythm, we'll reassess tomorrow 12/30/2019, follow-up on speech therapy recommendations on diet. Into new metoprolol 12.5 mg twice a day for tachycardia >150 HR. #Left hydronephrosis versus Hydroureter: Consulted urology, POD#1 s/p left stent placement, follow-up with urology in 3-4 weeks #Encephalopathy, consider delirium with underlying dementia, back to baseline #Dysphagia, could be secondary to underlying dementia, we'll make nothing by mouth, follow-up with speech therapy, cont IVF. #Crohns disease: Hold home Adalimumab, resume home loperamide 2mg BID #CAD: Continue home aspirin #HFpEF/LE edema: Continue home Lasix 20 mg daily #Chronic pain: hold home ibuprofen 200mg QHS DVT PPI. Ex: Heparin DNR/DNI Disposition: earliest anticipated DC home on 12/30/2019, family can provide 2 assist, home PT, etc. 35 minutes were spent on care coordination VS, I&O, 24H, Fishbone Vital Signs/I&O Vital Signs Date Time Temp Pulse Resp B/P (MAP) Pulse Ox O2 Delivery O2 Flow Rate FiO2 12/29/19 10:53 127 130/75 12/29/19 10:40 18 97 Room Air 12/29/19 10:00 97.4 12/28/19 11:53 2 I&O- Last 24 Hours up to 6 AM 12/29/19 06:00 Intake Total 1400 ml Output Total 575 ml Balance 825 ml Laboratory Data 24H LABS Laboratory Tests 2 12/29/19 05:43: Nucleated Red Blood Cells % (auto) 0.0, Anion Gap 10, Glomerular Filtration Rate > 60.0, Calcium Level 8.6L CBC/BMP Laboratory Tests 12/29/19 05:43 Microbiology Microbiology 12/28/19 Urine Culture, Received Pending 12/24/19 Blood Culture - Final, Complete NO GROWTH AFTER 5 DAYS 12/24/19 Blood Culture - Final, Complete NO GROWTH AFTER 5 DAYS 12/24/19 Urine Culture - Final, Complete GELA SHARP MD December 29, 2019 12:13
[2019-12-29] MEDS ORDERED: VARIBAR NECTAR 40% w/v 240ML SUSP BTL As Ordered ONE (15:16)
[2019-12-29] MEDS ORDERED: VARIBAR PUDDING 40% w/v 230ML TUBE As Ordered ONE (15:16)
[2019-12-29] MEDS ORDERED: E-Z-PAQUE 96% w/w SUSP 176GM BTL As Ordered ONE (15:16)
[2019-12-29] MEDS ORDERED: BARIUM SULFATE 700 MG TABLET (E-Z-DISK) As Ordered ONE (15:16)
[2019-12-29] MEDS: PRAVASTATIN 20 MG TAB PO SCH (21:19)
--- NOTE | 2019-12-30 01:16 | ECGEPIP ---
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
[2019-12-30 02:00] VITALS: BP 124/72
[2019-12-30 06:00] VITALS: BP 128/72
[2019-12-30 06:42] LABS: HEMATOCRIT 34.1 % (42.0-52.0); HEMOGLOBIN 10.5 g/dl (13.5-17.5); MEAN CORPUSCULAR HEMOGLOBIN 27.1 pg (27.0-33.0); MEAN CORPUSCULAR HGB CONC 30.8 g/dl (32.0-36.5); MEAN CORPUSCULAR VOLUME 87.9 fl (80.0-96.0); PLATELET COUNT, AUTOMATED 234 10^3/uL (150-450); RED BLOOD COUNT 3.88 10^6/uL (4.30-6.10); WHITE BLOOD COUNT 7.5 10^3/uL (4.0-10.0)
[2019-12-30 07:12] LABS: BLOOD UREA NITROGEN 30 MG/DL (7-18); CALCIUM LEVEL 8.3 MG/DL (8.8-10.2); CARBON DIOXIDE LEVEL 26 MEQ/L (21-32); CHLORIDE LEVEL 111 MEQ/L (98-107); GLOMERULAR FILTRATION RATE > 60.0 (>35); GLUCOSE, FASTING 89 MG/DL (70-100); POTASSIUM SERUM 4.5 MEQ/L (3.5-5.1); SODIUM LEVEL 145 MEQ/L (136-145)
[2019-12-30 09:17] VITALS: BP 128/72
[2019-12-30] MEDS: METOPROLOL TART 12.5 MG PER 1/2 TAB PO SCH (09:17)
[2019-12-30] MEDS: LOPERAMIDE 2 MG CAPLET PO SCH (09:17)
[2019-12-30] MEDS: ASPIRIN 81 MG ENTERIC TAB PO SCH (09:18)
[2019-12-30] MEDS: POTASSIUM CHLORIDE 10 MEQ SR TABLET PO SCH (09:18)
[2019-12-30] MEDS: HEPARIN SOD (PORCINE) 5000UNITS/ML VIAL (J1644 PER 1000UNITS) SC SCH (09:18)
[2019-12-30] MEDS: FUROSEMIDE 20 MG TAB PO SCH (09:18)
[2019-12-30 10:00] VITALS: BP 113/69
--- NOTE | 2019-12-30 12:01 | DS.PDOC ---
Discharge Summary General Date of Admission December 24, 2019 at 10:15 Date of Discharge 12/30/19 Discharge Summary PROCEDURES PERFORMED DURING STAY: L ureteral stent. ADMITTING DIAGNOSES: 1. Fall, UTI. DISCHARGE DIAGNOSES: 1. L ureteral stenosis s/p stent, dysphagia, tachycardia, deconditioning. COMPLICATIONS/CHIEF COMPLAINT: Fall,Uti. HISTORY OF PRESENT ILLNESS/HOSPITAL COURSE: SUBJECTIVE: Patient is a 84yM with PMH of Crohn's disease complicated by chronic immunosuppressant therapy with Humira, history of non-Hodgkin's lymphoma, history of CAD, coccygeal wound infection presented with encephalopathy, thought to be secondary to UTI. Urine cultures were negative. He was noted that patient's heart rate is ranging from 130-160s, BP stable, bolus 500cc ND x1, no hx noted of CHF but on home diuretics thought to be secondary to lower extremity edema. Due to deconditioning, patient had PT eval with recommendations for 1-2 assist depending on activity. Due to worsening generalized weakness despite unrevealing labs, CT chest, abdomen, pelvis, was obtained and he was found to have left-sided hydronephrosis and I dagoberto ureter. Urology was consulted and pt had cystoscopy performed 12/28/19. POD#2 (12/28/19), cystoscopy, L ureter dilation and stent placement with Dr. Mcdonald. Upon speech therapy evaluation, patient was recommended to be on a pure diet. He was started on metoprolol 12.5 mg twice a day during hospitalization. Due to tachycardia which could be secondary to exertional. Heart rate was subsequently controlled on this medication. Patient will be discharged today, spoke with daughter, patient has a hospital bed, a lot of support at home, will require to assist and home PT which family can provide. He'll also have to follow up with his PCP in 1 week, and urology in 3-4 weeks. All questions were answered. Pt is DNR/DNI. OBJECTIVE PHYSICAL EXAMINATION: VITAL SIGNS: Please see below. GENERAL: No distress, hard of hearing HEENT: Normocephalic, atraumatic, moist mucous membranes NECK: Supple CARDIOVASCULAR EXAMINATION: S1, S2 RESPIRATORY EXAMINATION: CTAB ABDOMINAL EXAMINATION: Soft, nontender to palpation, positive bowel sounds EXTREMITIES: +edema SKIN: No rash NEUROLOGICAL EXAMINATION: Awake but fatigued PSYCHIATRIC EXAMINATION: Calm and cooperative, appropriate affect LABORATORY DATA, IMAGING STUDIES, MICROBIOLOGY: Please see below. ACTIVITY: As tolerated, two assist with transfer, 1 assist with activity DIET: pureed DISCHARGE PLAN: home, see above TIME SPENT ON DISCHARGE: 35 minutes. Vital Signs/I&Os Vital Signs Date Time Temp Pulse Resp B/P (MAP) Pulse Ox O2 Delivery O2 Flow Rate FiO2 12/30/19 10:00 97.7 84 15 113/69 (84) 93 Room Air 12/28/19 11:53 2 I&O- Last 24 Hours up to 6 AM 12/30/19 05:59 Intake Total 1508 ml Output Total 225 ml Balance 1283 ml Laboratory Data Labs 24H Laboratory Tests 2 12/30/19 06:11: Nucleated Red Blood Cells % (auto) 0.0, Anion Gap 8, Glomerular Filtration Rate > 60.0, Calcium Level 8.3L CBC/BMP Laboratory Tests 12/30/19 06:11 Microbiology Microbiology 12/28/19 Urine Culture - Final, Complete 12/24/19 Blood Culture - Final, Complete NO GROWTH AFTER 5 DAYS 12/24/19 Blood Culture - Final, Complete NO GROWTH AFTER 5 DAYS 12/24/19 Urine Culture - Final, Complete Discharge Medications Scheduled Adalimumab (Humira) 40 Mg/0.8 Ml Kit, 40 MG SC QWEEK for , (Reported) MONDAYS Aspirin (Aspirin EC) 81 Mg Tabec, 81 MG PO DAILY, (Reported) Furosemide (Furosemide) 20 Mg Tab, 20 MG PO BID, (Reported) TAKES AT 0400 AND 1200 Ibuprofen (Ibu-200) 200 Mg Tablet, 200 MG PO QHS, (Reported) Loperamide HCl (Loperamide) 2 Mg Capsule, 2 MG PO BID, (Reported) Magnesium Chloride (Mag64) 64 Mg Tablet.dr, 64 MG PO DAILY, (Reported) Multivitamin with Folic Acid (Thera Tablet) 400 Mcg Tablet, 1 TAB PO DAILY, (Reported) Pravastatin Sodium (Pravachol) 20 Mg Tab, 20 MG PO QHS, (Reported) Zinc (Zinc) 50 Mg Tablet, 50 MG PO BID, (Reported) Scheduled PRN Nitroglycerin (Nitrostat) 0.3 Mg Subl, 0.3 MG SL NITRO PRN for CHEST PAIN, (Reported) Allergies Coded Allergies: Unclassified (Verified Adverse Reaction, Mild, ALL NARCOTICS MAKE PATIENT COMBATIVE PER PT'S DAUGHTER, 12/24/19) GELA SHARP MD December 30, 2019 12:01
[2019-12-30] MEDS ORDERED: METO1TAB87 PO (12:03)
[2019-12-30 14:00] VITALS: BP 135/74
--- NOTE | 2019-12-31 13:02 | RO ---
DATE OF PROCEDURE: 12/28/2019 PREPROCEDURE DIAGNOSIS: Left hydronephrosis. POSTPROCEDURE DIAGNOSIS: Left ureteral stricture. PROCEDURE: Cystoscopy, left ureteroscopy with balloon dilation, left retrograde pyelogram with intraoperative interpretation of images, urethral meatal dilation, left ureteral stent placement. SURGEON: Ke Mcdonald MD SOYFREEZE OPERATOR: None. ANESTHESIA: General. OPERATIVE INDICATIONS: This is an 84-year-old male, who was found to have moderate left hydroureteronephrosis with an unidentifiable cause on CAT scan. He was brought to the operating room today for treatment. DESCRIPTION OF PROCEDURE: Patient brought to the operating room and general anesthesia was induced. Prophylactic antibiotics were infused. He was placed in dorsal lithotomy position and prepped and draped in the usual sterile fashion. At this point, I attempted to insert a rigid cystoscope into urethral meatus but it would not go as the meatus was too narrow. I therefore dilated his urethral meatus to 26-Niuean using curved metal sounds. I was then able to advance the scope into the urethra and all the way into the bladder. Once inside the bladder, a guidewire was advanced up the left collecting system. I went up the left collecting system with a short semirigid ureteroscopy and, of note, the left ureteral orifice as well as the distal ureter were moderately narrow. I had a hard time getting the scope into the ureteral orifice, but I was ultimately able to get it in, and approximately about 2-3 cm above the level of the ureteral orifice the ureter was extremely dilated. A retrograde pyelogram was performed and was notable for moderate to severe left hydroureteronephrosis down to the distal ureter. I then removed the ureteroscope and used a balloon dilator to dilate the stricture to a 12-Niuean. Once this was done, I removed the balloon dilator and went back in with the ureteroscope, and the distal ureter was now more patent. Of note, no stones were seen. No masses were seen. The ureter appeared to be narrow due to the stricture. Once this was done, I utilized the previously placed wire to advance a #7-Niuean x 22-32 cm JJ ureteral stent into the left collecting system. The wire was removed, and there were adequate curls in the stent in the left renal pelvis and in the bladder. At this point, I then inserted a #16-Niuean Griggs catheter into the bladder and filled the balloon with 10 mL of sterile water. The catheter was connected to gravity drainage, and this marked the conclusion of the procedure. The patient was then taken out of the dorsal lithotomy position, awakened from anesthesia, and transported to the recovery room in stable condition. ESTIMATED BLOOD LOSS: 5 mL. COMPLICATIONS: None. SPECIMENS: Urine from left kidney for culture. PLAN: We will see if the patient improves with stent placement. Ultimately, we will have to take the stent out in approximately 4 weeks. His catheter can be removed tomorrow. DARA
--- NOTE | 2020-01-01 11:52 | REP ---
COOKIE SWALLOW The procedure was performed under the direct supervision of Dr. Diez. 5 ml aliquots of honey consistency barium was administered. There is no evidence of penetration or aspiration. A detailed report of this examination will be provided by speech pathology. 1.5 minutes of fluoroscopy time was utilized for this procedure. Electronically Signed by NILSA Cooper 12/29/2019 04:12 P Electronically Signed by Rock Diez MD 01/01/2020 11:43 A
== END 2019-12-30 15:14 | disposition home health service (06) | DRG 988 ==
LOC: EDBD 04:33 → M ED 04:33 → M ED INP 10:15 → ENRESERV 10:30 → M MSPAV 11:58
PROVIDERS: ADMIT Internal Medicine; ATTEND Family Medicine
PROC: 0T778DZ Dilation of Left Ureter with Intraluminal Device, Via Natural or Artificial Opening Endoscopic (ICD-10-PCS; principal; 2019-12-28 18:30)
DX: G93.41 Metabolic encephalopathy (principal); K51.90 Ulcerative colitis, unspecified, without complications; C85.95 Non-Hodgkin lymphoma, unspecified, lymph nodes of inguinal region and lower limb; E87.2 Acidosis; N13.1 Hydronephrosis with ureteral stricture, not elsewhere classified; E78.5 Hyperlipidemia, unspecified; I25.2 Old myocardial infarction; R13.10 Dysphagia, unspecified; N40.0 Benign prostatic hyperplasia without lower urinary tract symptoms; Z66 Do not resuscitate; I25.10 Atherosclerotic heart disease of native coronary artery without angina pectoris; L89.152 Pressure ulcer of sacral region, stage 2; F03.90 Unspecified dementia, unspecified severity, without behavioral disturbance, psychotic disturbance, mood disturbance, and anxiety; G89.29 Other chronic pain; Z95.5 Presence of coronary angioplasty implant and graft; Z96.642 Presence of left artificial hip joint; Z92.3 Personal history of irradiation; Z79.82 Long term (current) use of aspirin; Z79.899 Other long term (current) drug therapy; Z88.5 Allergy status to narcotic agent